=== PATIENT | female | born 1965 | race Asian ===

== ENCOUNTER 2017-06-15 12:22 | Inpatient (IN) | payer OTHER ==
[~2017-06-15] VITALS: Ht 162.6 cm; Wt 69.2 kg
[~2017-06-15 12:22] MED LIST: DEPAKOTE; SEROQUEL
[2017-06-15] MEDS ORDERED: LORAZEPAM 2 MG INJ IV STA (12:24)
[2017-06-15 13:56] LABS: CALCIUM 9.7 mg/dl (8.4-10.2); CREATININE 0.79 mg/dl (0.44-1.00); POTASSIUM 4.5 mmol/L (3.5-5.1)
--- NOTE | 2017-06-15 14:32 | ERD ---
ER Documentation Chief Complaint Date/Time DATE: 06/15/17 TIME: 14:27 Chief Complaint BIB RA FOR EVAL OF SEIZURE AT [facility]. HX OF SZ. NO INJURIES HPI This is a 51-year-old female with a known seizure disorder on multiple medications including Keppra, valproic acid and Tegretol with an additional history of developmental delay who presents for possible multiple seizures. The patient's report is mostly provided by EMS. It appears the patient may have had up to 4 seizures while at the adult daycare center returning to baseline he is time. The patient does have regular breakthrough seizures. The patient has had a chcf it is unclear if she gives herself the medications. The patient is able to state that she has no pain but has limited other verbal and interactive capability. Therefore, remainder of HPI is very limited. No report of trauma. ROS All systems reviewed and are negative except as per history of present illness. Medications Home Meds Reported Medications [Seroquel] No Conflict Check 06/14/10 [Depakote] No Conflict Check 06/14/10 Allergies Allergies: Coded Allergies: No Known Allergies (Verified Allergy, Mild, 06/15/17) PMhx/Soc Hx Neurological Disorder: Yes (SEIZURES, MENTAL RETARDATION) Hx Alcohol Use: No Hx Substance Use: No Hx Tobacco Use: No Smoking Status: Never smoker Physical Exam Vitals Vital Signs Date Time Temp Pulse Resp B/P Pulse Ox O2 Delivery O2 Flow Rate FiO2 06/15/17 13:39 79 17 115/72 100 Room Air 06/15/17 12:26 98.2 82 16 120/82 99 Physical Exam General: Well developed, well nourished, no acute distress Head: Normocephalic, atraumatic. Eyes: Pupils equally reactive, EOM intact ENT: Moist mucous membranes Neck: Supple, no lymphadenopathy Respiratory: Lungs clear bilaterally, no distress Cardiovascular: RRR, no murmurs, rubs, or gallops Abdominal: Soft, non-tender, non-distended, no peritoneal signs : Deferred MSK: No edema, no unilateral swelling, 5/5 strength Neurologic: Alert and oriented, moving all extremities, normal speech, no focal weakness, no cerebellar signs Skin: No rash Psych: Normal mood Result Diagram: 06/15/17 1255 Results 24 hrs Laboratory Tests Test 06/15/17 12:55 06/15/17 13:11 06/15/17 13:53 Sodium Level 144mmol/L Potassium Level 4.5mmol/L Chloride Level 105mmol/L Carbon Dioxide Level 22mmol/L Anion Gap 22 Blood Urea Nitrogen 16mg/dl Creatinine 0.79mg/dl Glucose Level 82mg/dl Calcium Level 9.7mg/dl Valproic Acid (Depakene) Level 81ug/ml Bedside Glucose 79mg/dL 100mg/dL Current Medications Medications (Trade) Dose Ordered Sig/Avani Route PRN Reason Start Time Stop Time Status Last Admin Dose Admin Lorazepam (Ativan) 0.5 mg ONCE STAT IV 06/15/17 12:24 06/15/17 12:25 DC 06/15/17 13:33 Procedures/MDM LAB INTERPRETATION: No hypoglycemia, no electrolyte abnormality, therapeutic valproic acid MEDICAL DECISION MAKING: The patient has likely breakthrough seizures. She has returned to her baseline and has no symptoms or diagnostic criteria for status epilepticus. The patient has no signs or symptoms concerning for increased intracranial pressure. She has no evidence of infectious process such as meningitis. I believe that since the patient has had 4 seizures electrolyte testing and valproic value would be appropriate. The patient will also be given Ativan for seizure prophylaxis. ER COURSE: The patient does not require CT imaging, she has returned to her baseline and were maintained her baseline during multiple hours of observation in the emergency room. At this time I do not believe the patient requires hospitalization, this is likely secondary to breakthrough seizures. The patient can be discharged back to her assisted living facility with outpatient neurology follow-up as appropriate. I kept the patient and/or family informed of laboratory and diagnostic imaging results throughout the emergency room course. DISPOSITION PLAN: We discussed follow up with the patient's primary care doctor within 24 to 48 hours as needed. We also discussed return to the emergency room for worsening symptoms or worsening condition. Outpatient referral: Primary care and primary neurology Departure Diagnosis: Primary Impression: Seizure disorder Condition: Stable Patient Instructions: Seizure, Recurrent [Adult] Referrals: COMMUNITY CLINICS YOU HAVE RECEIVED A MEDICAL SCREENING EXAM AND THE RESULTS INDICATE THAT YOU DO NOT HAVE A CONDITION THAT REQUIRES URGENT TREATMENT IN THE EMERGENCY DEPARTMENT. FURTHER EVALUATION AND TREATMENT OF YOUR CONDITION CAN WAIT UNTIL YOU ARE SEEN IN YOUR DOCTORS OFFICE WITHIN THE NEXT 1-2 DAYS. IT IS YOUR RESPONSIBILITY TO MAKE AN APPOINTMENT FOR FOLOW-UP CARE. IF YOU HAVE A PRIMARY DOCTOR --you should call your primary doctor and schedule an appointment IF YOU DO NOT HAVE A PRIMARY DOCTOR YOU CAN CALL OUR PHYSICIAN REFERRAL HOTLINE AT IF YOU CAN NOT AFFORD TO SEE A PHYSICIAN YOU CAN CHOSE FROM THE FOLLOWING [facility] [address] [facility] [address] [facility] [address] [facility] [address] [facility] [address] [facility] [facility] [address] [facility]. [facility] YOU HAVE RECEIVED A MEDICAL SCREENING EXAM AND THE RESULTS INDICATE THAT YOU DO NOT HAVE A CONDITION THAT REQUIRES URGENT TREATMENT IN THE EMERGENCY DEPARTMENT. FURTHER EVALUATION AND TREATMENT OF YOUR CONDITION CAN WAIT UNTIL YOU ARE SEEN IN YOUR DOCTORS OFFICE WITHIN THE NEXT 1-2 DAYS. IT IS YOUR RESPONSIBILITY TO MAKE AN APPOINTMENT FOR FOLOW-UP CARE. IF YOU HAVE A PRIMARY DOCTOR --you should call your primary doctor and schedule and appointment IF YOU DO NOT HAVE A PRIMARY DOCTOR YOU CAN CALL OUR PHYSICIAN REFERRAL HOTLINE AT . IF YOU CAN NOT AFFORD TO SEE A PHYSICIAN YOU CAN CHOSE FROM THE FOLLOWING [facility] INSTITUTIONS: [facility] [address] [place] [address] [facility] [address] [place] [address] [facility] + [facility] [address] [place] [address] Additional Instructions: Call your primary care doctor TOMORROW for an appointment during the next 1 WEEK.Tell the law secretary that you were referred from this facility.See the doctor sooner or return here if your condition worsens before your appointment time. MOMO MCGINNIS MD Jun 15, 2017 14:32
[2017-06-15] MEDS ORDERED: ARIP10TA13 PO (14:42)
[2017-06-15] MEDS ORDERED: TOPI25CA2 PO (14:42)
[2017-06-15] MEDS ORDERED: DIVA500T7 PO (14:42)
[2017-06-15] MEDS ORDERED: TOPI-25 PO (14:43)
[2017-06-15] MEDS ORDERED: METO5TAB58 PO (14:44)
[2017-06-15] MEDS ORDERED: LEVE100018 PO (14:44)
[2017-06-15] MEDS ORDERED: PANT40TA4 PO (14:45)
[2017-06-15] MEDS ORDERED: LACT20SO2 PO (14:45)
[2017-06-15] MEDS ORDERED: LORA1TAB PO (14:45)
[2017-06-15] MEDS ORDERED: LOPE2CAP PO (14:47)
[2017-06-15] MEDS ORDERED: DOCU-144 PO (14:47)
[2017-06-15] MEDS ORDERED: CHOL100062 PO (14:49)
[2017-06-15] MEDS ORDERED: LEVETIRACETAM 1000 MG (PMX) 100 ML IVPB STA (15:51)
[2017-06-15] MEDS ORDERED: LORAZEPAM 2 MG INJ IV ONE (16:00)
--- NOTE | 2017-06-15 16:15 | RADRPT ---
PROCEDURE: CT Cervical Spine without contrast. CLINICAL INDICATION: Trauma with neck pain TECHNIQUE: Using a GE [id number] slice CT scanner, multiple axial images through the cervical sp ine with coronal and sagittal reformats were obtained without contrast. The images were reviewed on a high-resolution PACS workstation. The CTDI vol is 22.15 mGy and the DLP is 451.13 mGy-cm. COMPARISON: No prior studies are available for comparison. FINDINGS: Trace retrolisthesis at C3-4 is seen. The remainder of the cervical lordosis is straightened. There is normal height of the vertebral bodies. Multilevel endplate and uncovertebral osteophytosis is se en. There is no bone destruction or sclerosis. The atlantoaxial joint demonstrates degenerative de león ges. There is no acute fracture or subluxation. No prevertebral or paravertebral soft tissue abnorm ality is seen. Degenerative changes between the right occipital condyle and right lateral mass of C1 is seen. C2-3: A mild posterior disk bulge is seen. There is no neuroforaminal narrowing. There is no central canal stenosis. C3-4: Mild disk height loss is seen with a posterior disk bulges. A superimposed 3 mm focal central disk protrusion is seen which indents the ventral thecal sac. Mild to moderate central canal steno sis is seen. Moderate left foraminal stenosis and mild right foraminal stenosis is seen secondary t o facet arthropathy and uncovertebral osteophytosis. C4-5: Mild disk height loss is seen. A posterior disk osteophyte complex is seen. Mild central can al stenosis is seen. Moderate left foraminal stenosis and mild right foraminal stenosis is seen sec ondary to uncovertebral osteophytosis and facet arthropathy. C5-6: Mild to moderate disk height loss is seen with a posterior disk osteophyte complex noted. Sev ere left foraminal stenosis is seen with mild right foraminal stenosis secondary to uncovertebral os teophytosis. Mild central canal stenosis is seen. C6-7: Moderate to severe disk height loss is seen with a post a disk osteophyte complex noted. Mode rate left foraminal stenosis is seen with minimal right foraminal stenosis secondary to uncovertebra l osteophytosis. Borderline narrowing of the central canal is seen. C7-T1: Mild to moderate disk height loss is seen. There is no neuroforaminal narrowing. There is no central canal stenosis. IMPRESSION: 1. No CT evidence of an acute fracture or subluxation. 2. Multilevel degenerative spondylosis of the cervical spine as detailed above. 3. Straightening of the cervical lordosis. 4. Multilevel foraminal stenosis which is most prominent on the left side is C5-6 with severe narro wing. RPTAT: HPNM Physician Kemar Date Time Electronically viewed and signed by Brodie Rivas Physician on 06/15/2017 16:14 /
--- NOTE | 2017-06-15 16:31 | RADRPT ---
PROCEDURE: CT Head without intravenous contrast CLINICAL INDICATION: Fall in the emergency department. COMPARISON: CT from 11/13/2008. TECHNIQUE: Axial CT images from skull base to vertex with coronal and sagittal reformats. DOSE: The estimated administered radiation dose was CTDI vol = 42 mGy; DLP = 720 mGy-cm. One or mor e of the following dose reduction techniques were used: automated exposure control, adjustment of th e mA and/or kV according to patient size, or use of iterative reconstruction. FINDINGS: Parenchyma: Encephalomalacia and gliosis in the right anterior inferior frontal lobe related to bryson te injury. The basal ganglia are mineralized. Mild diffuse cerebral atrophy and moderate diffuse c erebellar atrophy. Ventricles: No ventriculomegaly or ventricular effacement. Extra-axial spaces: Acute subdural hemorrhage overlying the right frontal lobe measures 210 mm thick . Acute subdural hemorrhage overlying the high left parietal lobe measures to 5 mm thick. Acute bryant bdural hemorrhage overlying the tentorium measures up to 4 mm thick, left more than right. Acute bryant bdural hemorrhage overlying the posterior margin of the clivus measures up to 5 mm thickened extends inferiorly to the cervical spine out of the field of view. Paranasal sinuses: Clear. Mastoids and middle ears: Clear. Visualized orbits: Normal. Vessels: No calcified atherosclerotic arterial plaque identified. Bones: Old right frontal temporal craniotomy with metallic surgical material underlying the operativ e bed. No acute fracture within the limitations of 5 mm axial images Extracranial soft tissues: Small parietal scalp hematoma measuring up to 4 mm thick. Additional comment: None. IMPRESSION: 1. Acute subdural hemorrhages overlying the right frontal lobe, left parietal lobe, tentorium, and d ura overlying the clivus. The clival subdural hemorrhage extends to the anterior cervical spinal can al. 2. Moderate cerebellar atrophy, a finding with a broad differential diagnosis. In this case, the ca use may be related to the patient's chronic valproate use for known underlying seizure disorder. 3. Old injury in the right frontal lobe in a pattern often associated with trauma. Dr. Marley discussed findings with MARIELA CRUZ , the clinician responsible for this patient, vi a telephone at 06/15/2017 4:19:17 PM with read back confirmation. RPTAT: PP Maricruz Marley, Physician Date Time Electronically viewed and signed by Maricruz Marley Physician on 06/15/2017 16:31 /
[2017-06-15] MEDS ORDERED: LIDOCAINE 1% (MPF) 5 ML VIAL SC ONE (17:00)
[2017-06-15 17:09] LABS: BASOPHIL # 0.1 10^3/ul (0.0-0.1); BASOPHILS % 0.5 % (0.0-2.0); EOSINOPHILS # 0.2 10^3/ul (0.0-0.5); EOSINOPHILS % 1.2 % (0.0-7.0); HEMATOCRIT 41.2 % (37.0-47.0); HEMOGLOBIN 14.1 g/dl (12.0-16.0); LYMPHOCYTES # 4.8 10^3/ul (0.8-2.9); LYMPHOCYTES % 39.8 % (15.0-51.0); MEAN CORPUSCULAR HEMOGLOBIN 31.5 pg (29.0-33.0); MEAN CORPUSCULAR HGB CONC 34.2 g/dl (32.0-37.0); MEAN CORPUSCULAR VOLUME 92.2 fl (82.0-101.0); MEAN PLATELET VOLUME 10.9 fl (7.4-10.4); MONOCYTE # 1.3 10^3/ul (0.3-0.9); MONOCYTES % 10.5 % (0.0-11.0); NEUTROPHIL # 5.7 10^3/ul (1.6-7.5); NEUTROPHILS % 47.6 % (39.0-77.0); PLATELET COUNT 194 10^3/UL (140-415); RED BLOOD COUNT 4.47 10^6/ul (4.20-5.40); RED CELL DISTRIBUTION WIDTH 12.2 % (11.5-14.5)
[2017-06-15 17:25] LABS: INR 0.99; PROTIME 13.1 Sec (12.2-14.2)
[2017-06-15 17:26] LABS: PARTIAL THROMBOPLASTIN TIME 24.1 Sec (25.0-35.0)
--- NOTE | 2017-06-15 17:51 | EN ---
Date/Time of Note Date/Time of Note DATE: 06/15/17 TIME: 17:45 ER Progress Note This is a 51-year-old female with a known history of developmental delay and seizure disorder. The patient had been seen and evaluated in the emergency department by the previous ER physician and was appropriately being discharged after evaluation for recurrent seizures. The patient had been awaiting transfer and still remained in seizure precautions. The patient at 1544 was found lying on the floor adjacent to her hospital bed experiencing a witnessed tonic-clonic seizure. I went to the bedside and saw the patient actively seizing on the floor and therefore administered 2 mg of Ativan intravenously with resolution of the seizure. The patient had no scalp hematoma and appeared to be in a post ictal state. Given the blunt head trauma the patient was immediately placed in cervical spine immobilization. CT scan of the patient's head and neck was ordered at 1546 and reviewed by myself emergently and I spoke with the radiologist who indicated that the patient had an acute subdural hemorrhage overlying the left parietal lobe measuring 5 mm as well as 4 mm overlying the tentorium on the left more than the right. The patient remained in cervical spine immobilization and a immediately placed a consult to the on- call neurosurgeon Dr. Villavicencio who kindly stated he will be consulted on the case. 2 large bore IV catheters were placed. The patient remained on a court monitor and continuous pulse oximetry. Her airway remained intact. She still remained postictal and therefore was unable to observe the gait. Repeat examination performed by myself showed that the patient had normal breath sounds bilaterally with no reproducible crepitus ecchymosis or flail chest and there is no signs of blunt or penetrating chest or abdominal trauma. Againg gait was not observed as the patient was postictal and was not following verbal command. Pupils were 3mm equal reactive to light bilaterally. I ordered a CBC, coagulation panel and gave the patient on IV Keppra for seizure prophylaxis. She remained in seizure precautions. She will be admitted to the intensive care unit under the care of the [facility] physician Dr. Maravilla. I placed an emergent social work consult to determine who consents for the patient. MARIELA CRUZ Jun 15, 2017 17:51
[2017-06-15] MEDS ORDERED: ONDANSETRON 4 MG INJ IV PRN (20:30)
[2017-06-15] MEDS ORDERED: D5-NS + KCL 40 MEQ 1,000 ML IV SCH (20:30)
[2017-06-15] MEDS ORDERED: DIVALPROEX (EC) 500 MG TAB PO SCH (21:00)
[2017-06-15] MEDS ORDERED: LEVETIRACETAM 500 MG TAB PO SCH (21:00)
[2017-06-16] VITALS (31 sets, daily range): BP systolic 112–161; BP diastolic 49–108; PULSE 79–110; RESP 15–22; TEMP 99.3; Ht 162.6 cm; Wt 69.2 kg
--- NOTE | 2017-06-16 00:52 | QN ---
Documentation Comment H&P dict a/p 1. neuro: extensive dubdural, appreciate neurosurg (dinorah) input, cont to monitor neuro status repeat ct in am (b) vagal nerve stimulator (not pacer per mother) implanted recently (c) refractory seizures, cont keppra, ativan prn (d) developmental delay CINDY FLORES MD Jun 16, 2017 00:52
[2017-06-16] MEDS: D5-NS + KCL 40 MEQ 1,000 ML IV SCH ×2 (04:26→22:34)
[2017-06-16] MEDS: METOCLOPRAMIDE 5 MG TAB PO SCH ×2 (07:00→11:00)
[2017-06-16] MEDS: PANTOPRAZOLE (EC) 40 MG TAB PO SCH (07:00)
--- NOTE | 2017-06-16 07:49 | RADRPT ---
PROCEDURE: CT Brain without contrast. CLINICAL INDICATION: Subdural hemorrhages TECHNIQUE: Axial images from the skull base through the vertex without IV contrast. Multiplanar r eformatted images were made. Images were reviewed on a PACS workstation. The CTDIvol is 45.01 mGy and the DLP is 720.23 mGycm. One or more of the following dose reduction techniques were used: auto mated exposure control, adjustment of the mA and/or kV according to patient size, or use of iterativ e reconstruction technique. COMPARISON: 06/15/2017 FINDINGS: There has been significant interval increase of the right subdural hemorrhage. This previously niru ured 12 mm adjacent to the anterior right frontal lobe now measures 19 mm. Right subdural blood in the posterior high right frontoparietal region now measures 5-6 mm in greatest diameter and previous ly measured 1-2 mm in greatest diameter. Extra-axial blood along the falx and cerebellar tentorium is also increased, measuring 6 mm along the falx and 6 mm on the right cerebellar tentorium. There is now 3 mm of naxqw-gd-ltam midline shift. Posterior left frontal parietal subdural hematoma is st able or slightly decreased, measuring 8 mm in diameter and previously measuring 9 mm in diameter. V entricular size is unchanged. Cerebellar atrophy is again seen. Right post craniotomy changes are again seen. Underlying atrophy and chronic microvascular ischemic changes are again seen. Old righ t inferior frontal lobe encephalomalacia. The visualized paranasal sinuses and mastoids are clear. IMPRESSION: Increase in right subdural hematoma and blood along the falx and cerebellar tentorium. Xgjky-ac-yep t midline shift. Results were called to Dr Thakkar at 06/16/2017 7:28:58 AM Critical results: Intracranial hemorrhage RPTAT: HLBE Physician Edwin Date Time Electronically viewed and signed by Estela Huntley Physician on 06/16/2017 07:49 LE/
--- NOTE | 2017-06-16 08:05 | HP ---
DATE OF ADMISSION: 06/15/2017 CHIEF COMPLAINT: Seizure. HISTORY OF PRESENT ILLNESS: The patient presented to the Emergency Room of [facility] after experiencing a seizure, . She has prior history seizures; however, while she was receiving her treatment here in the hospital, she was found on the floor and at that time somewhat altered and there is concern for injury. She was sent for a CT scan of the brain and it revealed subdural hematoma. PAST MEDICAL HISTORY: Significant for developmental delay and refractory seizures. MEDICATIONS: Outpatient include: 1. Abilify 10 mg daily. 2. Depakote 500 mg t.i.d. 3. Keppra 1000 mg b.i.d. 4. Ativan 1 mg every 4 hours as needed. 5. Topamax 50 mg b.i.d., given with 100 mg b.i.d. for a total dose of 150 mg b.i.d. 6. Lactulose p.r.n. 7. Colace and p.r.n. 8. Imodium p.r.n. 9. Protonix 40 mg daily. ALLERGIES: NO KNOWN DRUG ALLERGIES. 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 In the fsfhi-hxd-npzy, according to her mother, she is usually able to bathe and dress herself. She does have some gait disturbance, but is able to walk. Denies tobacco, alcohol, or illicit drug use. FAMILY HISTORY: Noncontributory. REVIEW OF SYSTEMS: Five systems were reviewed and found to be notable for A deep vagal stimulator placed in the left upper chest wall approximately 3 months ago at [facility]. PHYSICAL EXAMINATION: VITAL SIGNS: Blood pressure is 143/87, pulse rate 115, respirations 23, temperature is 98.6. GENERAL: Pleasant, somnolent woman in no acute distress. Arousable, but does not answer questions or follow commands. HEENT: Normocephalic, atraumatic. Without any scleral icterus or cyanosis. Mucous membranes moist. NECK: Soft, supple, without mass. No evidence of jugular venous distention. No carotid bruits. CHEST: Clear to auscultation and percussion bilaterally. HEART: Regular rate and rhythm. S1 and S2. No added sounds. ABDOMEN: Soft, nontender, and nondistended, without palpable hepatosplenomegaly. EXTREMITIES: Without clubbing, cyanosis or edema. SKIN: Without rashes. NEUROLOGIC: The patient is not cooperative with exam; however, pupils are equal and round, reactive to light. Moving all 4 limbs spontaneously. LABORATORY STUDIES: Reveal a hemoglobin of 14.1 g/dL, white count of 12,000, and platelets of 194,000. INR is 1.0. Sodium 144, potassium 4.5, chloride 105, bicarb 22, BUN 16, creatinine 0.8, glucose 82. CT scan of brain reveals a subdural hematoma over right frontoparietal region and tentorium, worse on the left. CT scan of cervical spine does not reveal any fractures or dislocations. ASSESSMENT AND PLAN: 1. compatible MRI. from [facility]. 2. . 3. Prophylaxis with TEDs, SCDs and Protonix. Dictated By: Obinna Kidd MD /bailey/eddie /Document#: [id number]
[2017-06-16] MEDS: ARIPIPRAZOLE 10 MG TAB PO SCH (09:00)
[2017-06-16] MEDS: TOPIRAMATE SPRINKLE 25 MG CAP PO SCH ×2 (09:00→21:00)
[2017-06-16] MEDS: TOPIRAMATE 100 MG TAB PO SCH ×2 (09:00→21:00)
[2017-06-16] MEDS: CHOLECALCIFEROL 1,000 UNIT TAB PO SCH (09:00)
--- NOTE | 2017-06-16 09:42 | PN ---
Date/Time of Note Date/Time of Note DATE: 06/16/17 TIME: 09:42 Assessment/Plan VTE Prophylaxis VTE Prophylaxis Intervention: SCD's Lines/Catheters Urinary Cath still in place: Yes Reason Cath still needed: other (indicate) (Close neurological monitoring and strict bed rest. ) Assessment/Plan Assessment/Plan 51-year-old female with: 1. Right subdural hematoma, increased per repeat CT this morning with now a 3 mm of [id number] midline shift. Patient lethargic on my exam this morning, A.m. labs pending this morning, neurosurgical evaluation pending, ABG pending Close neurological monitoring in ICU Continue antiseizure medications, follow-up neurosurgical recommendations today 2. Seizure disorder, refractory to medications apparently: Continue current medications and also status post vagal nerve stimulator. Neurology will be consulted also. 3. Developmental delay: Close neurological monitoring given acute traumatic head injury with right subdural hematoma. Continue outpatient medications as long as patient able to take p.o. safely 4. GERD: Continue Protonix 5. Chronic constipation: Continue outpatient regimen as well as patient able to take p.o. Prophylaxis: Protonix for GI prophylaxis, SCDs to lower extremity for DVT prophylaxis Disposition: Close neurological monitoring, neurosurgical evaluation, neurology consult, follow-up labs this morning including ABG, seizure precautions. Subjective 24 Hr Interval Summary Free Text/Dictation Patient currently lethargic, answering simple questions but slow to react. Unclear baseline she does have a history of developmental delay. Will need outpatient records when it comes to vagal nerve stimulator placement in the past few years, possibly a craniotomy on a previous hospitalization at another hospital. She is currently in ICU for close neurological observation knowing her seizure history and currently unfortunately with a subdural hematoma Exam/Review of Systems Vital Signs Vitals Vital Signs Date Time Temp Pulse Resp B/P Pulse Ox O2 Delivery O2 Flow Rate FiO2 06/16/17 08:26 103 18 142/74 96 Nasal Cannula 2.0 06/16/17 06:43 99.3 Exam Constitutional: frail, other (Lethargic) Respiratory: clear to auscultation, respirations (Slightly shallow) Cardiovascular: nl pulses, regular rate and rhythm Gastrointestinal: non-tender, soft Musculoskeletal: nl extremities to inspection Extremities: normal pulses, other (No edema, clubbing or cyanosis) Neurological: TABULATING MACHINE MECHANIC II-XII intact, lethargic, other (Slow to respond) Results Result Diagram: 06/15/17 1700 06/15/17 1255 Results 24 hrs Laboratory Tests Test 06/15/17 12:55 06/15/17 13:11 06/15/17 13:53 06/15/17 14:58 Sodium Level 144 Potassium Level 4.5 Chloride Level 105 Carbon Dioxide Level 22 Anion Gap 22 H Blood Urea Nitrogen 16 Creatinine 0.79 Glucose Level 82 Calcium Level 9.7 Valproic Acid (Depakene) Level 81 Bedside Glucose 79 100 121 Test 06/15/17 17:00 White Blood Count 12.0 H Red Blood Count 4.47 Hemoglobin 14.1 Hematocrit 41.2 Mean Corpuscular Volume 92.2 Mean Corpuscular Hemoglobin 31.5 Mean Corpuscular Hemoglobin Concent 34.2 Red Cell Distribution Width 12.2 Platelet Count 194 Mean Platelet Volume 10.9 H Neutrophils % 47.6 Lymphocytes % 39.8 Monocytes % 10.5 Eosinophils % 1.2 Basophils % 0.5 Nucleated Red Blood Cells % 0.0 Neutrophils # 5.7 Lymphocytes # 4.8 H Monocytes # 1.3 H Eosinophils # 0.2 Basophils # 0.1 Nucleated Red Blood Cells # 0.0 Prothrombin Time 13.1 Prothrombin Time Ratio 1.0 INR International Normalized Ratio 0.99 Activated Partial Thromboplast Time 24.1 L Medications Medications Current Medications Aripiprazole (Abilify) 10 mg DAILY PO ; Start 06/16/17 at 09:00 Cholecalciferol (Vitamin D) 1,000 unit DAILY PO ; Start 06/16/17 at 09:00 Divalproex Sodium (Depakote) 500 mg TID PO ; Start 06/15/17 at 21:00 Levetiracetam (Keppra) 1,000 mg BID PO ; Start 06/15/17 at 21:00 Topiramate (Topamax Sprinkle) 50 mg BID PO ; Start 06/15/17 at 21:00 Topiramate (Topamax) 100 mg BID PO ; Start 06/15/17 at 21:00 Lorazepam (Ativan) 2 mg Q1H PRN IV seizure; Start 06/15/17 at 20:30 Acetaminophen (Tylenol Tab) 650 mg Q4H PRN PO pain/fever; Start 06/15/17 at 20: 30 Morphine Sulfate (morphine) 2 mg Q2H PRN IV pain; Start 06/15/17 at 20:30 Ondansetron HCl 4 mg 4 mg Q4H PRN IV nausea; Start 06/15/17 at 20:30 Potassium Chloride/Dextrose/ Sod Cl (D5-NS + KCl 40 Meq) 1,000 ml @ 100 mls/hr Q10H IV Last administered on 06/16/17t 04:26; Admin Dose 100 MLS/HR; Start at 04:12 Procedures Procedures PROCEDURE: CT Brain without contrast. CLINICAL INDICATION: Subdural hemorrhages TECHNIQUE: Axial images from the skull base through the vertex without IV contrast. Multiplanar reformatted images were made. Images were reviewed on a PACS workstation. The CTDIvol is 45.01 mGy and the DLP is 720.23 mGycm. One or more of the following dose reduction techniques were used: automated exposure control, adjustment of the mA and/or kV according to patient size, or use of iterative reconstruction technique. COMPARISON: 06/15/2017 FINDINGS: There has been significant interval increase of the right subdural hemorrhage. This previously measured 12 mm adjacent to the anterior right frontal lobe now measures 19 mm. Right subdural blood in the posterior high right frontoparietal region now measures 5-6 mm in greatest diameter and previously measured 1-2 mm in greatest diameter. Extra-axial blood along the falx and cerebellar tentorium is also increased, measuring 6 mm along the falx and 6 mm on the right cerebellar tentorium. There is now 3 mm of [id number] midline shift. Posterior left frontal parietal subdural hematoma is stable or slightly decreased, measuring 8 mm in diameter and previously measuring 9 mm in diameter. Ventricular size is unchanged. Cerebellar atrophy is again seen. Right post craniotomy changes are again seen. Underlying atrophy and chronic microvascular ischemic changes are again seen. Old right inferior frontal lobe encephalomalacia. The visualized paranasal sinuses and mastoids are clear. IMPRESSION: Increase in right subdural hematoma and blood along the falx and cerebellar tentorium. [id number] midline shift. Results were called to Dr Thakkar at 06/16/2017 7:28:58 AM Critical results: Intracranial hemorrhage RPTAT: HLBE Estela Huntley, Physician Date Time Electronically viewed and signed by Estela Huntley, Physician on 06/16/2017 07 :49 ALEXANDER DARBY Jun 16, 2017 09:42
[2017-06-16 10:13] LABS: AADO2 Arterial 34.9 mmHg (7.0-24.0); Allen Test ACCEPTAB; Arterial Base Excess -1.9 mmol/L (-3.0-3); Arterial COHb 1.1 % (0.0-3.0); Arterial Fraction of Oxyhgb 96.2 % (93.0-99.0); Arterial HCO3 23.7 mmol/L (22.0-26.0); Arterial MetHb 0.3 % (0.0-1.5); Arterial Total Hemglobin 13.4 g/dl (12.0-18.0); MODE NASAL CANNULA
[2017-06-16 10:20] LABS: ABNORMAL IP MESSAGE 1; BASOPHILS % 0.1 % (0.0-2.0); HEMATOCRIT 37.8 % (37.0-47.0); HEMOGLOBIN 12.6 g/dl (12.0-16.0); LYMPHOCYTES # 2.2 10^3/ul (0.8-2.9); LYMPHOCYTES % 16.2 % (15.0-51.0); MEAN CORPUSCULAR HEMOGLOBIN 30.8 pg (29.0-33.0); MEAN CORPUSCULAR HGB CONC 33.3 g/dl (32.0-37.0); MEAN CORPUSCULAR VOLUME 92.4 fl (82.0-101.0); MEAN PLATELET VOLUME 10.6 fl (7.4-10.4); MONOCYTE # 1.6 10^3/ul (0.3-0.9); MONOCYTES % 12.1 % (0.0-11.0); NEUTROPHIL # 9.5 10^3/ul (1.6-7.5); NEUTROPHILS % 71.2 % (39.0-77.0); PLATELET COUNT 224 10^3/UL (140-415); RED BLOOD COUNT 4.09 10^6/ul (4.20-5.40); RED CELL DISTRIBUTION WIDTH 12.5 % (11.5-14.5); WHITE BLOOD COUNT 13.4 10^3/ul (4.8-10.8)
[2017-06-16] MEDS ORDERED: LACTULOSE 30ML CUP PO PRN (10:30)
[2017-06-16 10:57] LABS: MAGNESIUM 1.8 mg/dl (1.7-2.5); PHOSPHORUS 3.2 mg/dl (2.5-4.9)
[2017-06-16 10:59] LABS: ALBUMIN 3.9 g/dl (3.3-4.9); ALBUMIN/GLOBULIN RATIO 1.02; BILIRUBIN,INDIRECT 0.2 mg/dl (0-1.1); BILIRUBIN,TOTAL 0.2 mg/dl (0.2-1.3); CALCIUM 8.9 mg/dl (8.4-10.2); CREATININE 0.58 mg/dl (0.44-1.00); POTASSIUM 4.1 mmol/L (3.5-5.1); TOTAL PROTEIN 7.7 g/dl (6.1-8.1)
[2017-06-16] MEDS ORDERED: LIDOCAINE 1% (MPF) 5 ML VIAL SC ONE (11:00)
[2017-06-16] MEDS: LEVETIRACETAM 1000 MG (PMX) 100 ML IVPB SCH ×2 (11:23→21:48)
[2017-06-16] MEDS: VALPROATE INJ 500 MG in SOD CHLORIDE 0.9% 50 ML IVPB SCH ×3 (12:07→21:48)
--- NOTE | 2017-06-16 15:35 | CONS ---
Date/Time of Note Date/Time of Note DATE: 06/16/17 TIME: 15:19 Assessment/Plan Assessment/Plan Problems: (1) Subdural bleeding Status: Acute Additional Assessment/Plan 51 year old female with right frontal SDH, enlarged on follow up exam. The patient will likely benefit from right sided craniotomy for evacuation of hematoma, given its size (~2cm) and symptoms (lethargy, ? pronator drift), and 3mm midline shift. The patient is however tolerating the hematoma better than might be expected, and this may relate to evidence of prior underlying right encephalomalacia. I have recommended a repeat CT of the brain now to rule out further progression of the hematoma. If the hemorrhage is continuing to enlarge , I recommend urgent surgery (this pm). If stable, surgery might be able to be deferred, depending on wishes of patient and family. I discussed this with her mother (ANNIE) and she expressed her understanding and agreement with the plan as outlined above. Consultation Date/Type/Reason Admit Date/Time Jun 15, 2017 at 20:20 Date of Consultation: Jun 16, 2017 Type of Consultation: neurological surgery Reason for Consultation right frontal extra-axial hemorrhage Hx of Present Illness 51 y/o female with hx of sz d/o p/w seizure -> GLF -> R F SDH. Repeat CT shows increase in size of extra-axial hematoma. CT c/w prior right frontal encephalomalacia & prior craniotomy. No further evidence of seizure activity. Social History Smoking Status: Never smoker Exam/Review of Systems Vital Signs Vitals Vital Signs Date Time Temp Pulse Resp B/P Pulse Ox O2 Delivery O2 Flow Rate FiO2 06/16/17 14:30 94 16 141/82 100 06/16/17 14:00 Nasal Cannula 2.0 06/16/17 12:00 98.2 Exam Sleepy but easily arousable, follows commands (shows two fingers) bilaterally. ? pronator drift on left? Pupils =, face = hat model 5/5 bilaterally. Moves all extremities spontaneously. Results Result Diagram: 06/16/17 1009 06/16/17 1009 Results 24 hrs Laboratory Tests Test 06/15/17 17:00 06/16/17 09:35 06/16/17 10:09 White Blood Count 12.0 H 13.4 H Red Blood Count 4.47 4.09 L Hemoglobin 14.1 12.6 Hematocrit 41.2 37.8 Mean Corpuscular Volume 92.2 92.4 Mean Corpuscular Hemoglobin 31.5 30.8 Mean Corpuscular Hemoglobin Concent 34.2 33.3 Red Cell Distribution Width 12.2 12.5 Platelet Count 194 224 Mean Platelet Volume 10.9 H 10.6 H Neutrophils % 47.6 71.2 Lymphocytes % 39.8 16.2 Monocytes % 10.5 12.1 H Eosinophils % 1.2 0.0 Basophils % 0.5 0.1 Nucleated Red Blood Cells % 0.0 0.0 Neutrophils # 5.7 9.5 H Lymphocytes # 4.8 H 2.2 Monocytes # 1.3 H 1.6 H Eosinophils # 0.2 0.0 Basophils # 0.1 0.0 Nucleated Red Blood Cells # 0.0 0.0 Prothrombin Time 13.1 Prothrombin Time Ratio 1.0 INR International Normalized Ratio 0.99 Activated Partial Thromboplast Time 24.1 L Blood Gas Specimen Source Blood arterial Arterial Blood Date Drawn 06/16/2017 10:00:29 AM Arterial Blood pH (Temp corrected) 7.353 Arterial Blood pCO2 (Temp correct) 43.6 Arterial Blood pO2 (Temp corrected) 106.1 H Arterial Blood HCO3 23.7 Arterial Blood Base Excess -1.9 Arterial Blood Oxygen Saturation 97.6 Edwardo Test ACCEPTAB Arterial Blood Gas Puncture Site Right Radial Arterial Blood Carboxyhemoglobin 1.1 Arterial Blood Methemoglobin 0.3 Blood Gas A-a O2 Differential 34.9 H Oxyhemoglobin Percent 96.2 Total Hemoglobin 13.4 Blood Gas Temperature 37.0 Blood Gas Modality NASAL CANNULA FiO2 27.0 Blood Gas Notified Whom JLD Blood Gas Notified Time 06/16/2017 10:13:07 AM Sodium Level 141 Potassium Level 4.1 Chloride Level 103 Carbon Dioxide Level 24 Anion Gap 18 H Blood Urea Nitrogen 15 Creatinine 0.58 Glucose Level 139 # Calcium Level 8.9 Phosphorus Level 3.2 Magnesium Level 1.8 Total Bilirubin 0.2 Direct Bilirubin 0.00 Indirect Bilirubin 0.2 Aspartate Amino Transf (AST/SGOT) 33 Alanine Aminotransferase (ALT/SGPT) 25 Alkaline Phosphatase 50 Total Protein 7.7 Albumin 3.9 Globulin 3.80 H Albumin/Globulin Ratio 1.02 Medications Medications Current Medications Aripiprazole (Abilify) 10 mg DAILY PO ; Start 06/16/17 at 09:00 Cholecalciferol (Vitamin D) 1,000 unit DAILY PO ; Start 06/16/17 at 09:00 Topiramate (Topamax Sprinkle) 50 mg BID PO ; Start 06/15/17 at 21:00 Topiramate (Topamax) 100 mg BID PO ; Start 06/15/17 at 21:00 Lorazepam (Ativan) 2 mg Q1H PRN IV seizure; Start 06/15/17 at 20:30 Acetaminophen (Tylenol Tab) 650 mg Q4H PRN PO pain/fever; Start 06/15/17 at 20: 30 Morphine Sulfate (morphine) 2 mg Q2H PRN IV pain; Start 06/15/17 at 20:30 Ondansetron HCl 4 mg 4 mg Q4H PRN IV nausea; Start 06/15/17 at 20:30 Potassium Chloride/Dextrose/ Sod Cl 1,000 ml @ 100 mls/hr Q10H IV Last administered on 06/16/17 04:26; Admin Dose 100 MLS/HR; Start 06/16/17 at 04:12 Levetiracetam 100 ml @ 400 mls/hr Q12 IVPB Last administered on 06/16/17 11:23 ; Admin Dose 400 MLS/HR; Start 06/16/17 at 11:00 Valproate Sodium/ Sodium Chloride (Depacon/NS) 55 ml @ 55 mls/hr Q8 IVPB Last administered on 06/16/17 12:07; Admin Dose 55 MLS/HR; Start 06/16/17 at 11:00 Docusate Sodium (Colace) 100 mg DAILY PRN PO CONSTIPATION; Start 06/16/17 at 10: 30 Lactulose (Enulose) 20 gm BID PRN PO CONSTIPATION; Start 06/16/17 at 10:30 SIMRAN LARES MD Jun 16, 2017 15:32
--- NOTE | 2017-06-16 15:38 | RADRPT ---
PROCEDURE: XR Chest. CLINICAL INDICATION: Check Line Placement TECHNIQUE: Single frontal view of the chest was obtained COMPARISON: None FINDINGS: There is a vagal nerve stimulator projecting over the left lung base/cardiac apex with electrodes pr ojecting over the left lower neck. There is a right PICC line with tip projecting over the mid-right atrium. The cardiac silhouette is partially obscured, but mildly enlarged. No pneumothorax is identified. No significant pleural effusion seen. There is no evidence of pulmonary vascular congestion. There are mild degenerative changes of the visualized spine. IMPRESSION: 1. The right PICC line with tip projecting over the mid right atrium. 2. Left vagal nerve stimulator. 3. Mild cardiomegaly. RPTAT: EE Physician Bere Date Time Electronically viewed and signed by Physician Bere on 06/16/2017 15:37 /
[2017-06-16] MEDS ORDERED: SOD CHLORIDE 0.9% 100 ML ONE (15:47)
--- NOTE | 2017-06-16 16:08 | RADRPT ---
PROCEDURE: CT Brain without contrast. CLINICAL INDICATION: follow up ICH TECHNIQUE: CT scan of the brain was performed on a multidetector high-resolution CT scan. Axial im aging was obtained of the brain without contrast administration. Coronal and sagittal reformatted i mages were obtained from the axial source images. Standard CT scan of the head without contrast prot ocols were performed. The total exam CTDI equals 44.68 mGy and the total exam DLP equals 720.23 mGy-cm. One or more of the following dose reduction techniques were used: - Automated exposure control. - Adjustment of the mA and/or kV according to patient size. Use of iterative reconstruction technique. COMPARISON: CT scan of the head earlier same day FINDINGS: There is no significant interval change seen. Again noted is a right-sided acute subdural hematoma involving the right frontal parietal region with a maximal transverse diameter of 19 mm. No change in the parafalcine and tentorial subdural hematoma with maximal transverse diameters of approximatel y 6 mm. No change in the left parotid acute subdural hematoma measuring approximately 8 mm and maxi mal diameter. No new intracranial hemorrhages. Mild shift of the midline from right to left by daquan roximately 3.5 mm. Mild effacement of the right ventricle and right cerebrum. No evidence of intra cranial masses. Status post right craniotomy unchanged. These findings are superimposed and mild g eneralized cerebral volume loss and nonspecific chronic microischemic disease. again noted is a rig ht frontal encephalomalacia. The paranasal sinuses visualized are unremarkable. Mastoids are unrem arkable. IMPRESSION: 1. No significant change. 2. Again noted are right frontal parietal and left parietal subdural hematomas, parafalcine subdura l hematoma and tentorial subdural hematomas unchanged in size. No new intracranial hemorrhages. 3. Right frontal lobe encephalomalacia. 4. Mild generalized cerebral volume loss and nonspecific chronic microvascular ischemic disease. 5. No change right craniotomy. RPTAT:AAJJ Physician Latoya Date Time Electronically viewed and signed by Physician Latoya on 06/16/2017 16:08 BM/
--- NOTE | 2017-06-16 16:56 | RADRPT ---
PROCEDURE: Chest radiograph CLINICAL INDICATION: Check Line Placement. TECHNIQUE: Single portable frontal view. COMPARISON: Radiograph performed 20 minutes earlier. FINDINGS: The right PICC terminates in the right atrium. Device generator in the left chest with single lead extending to the left neck, suggesting a number of stimulator. The left diaphragm costophrenic sulcus is obscured which may be due to overlying soft tissue or smal l effusion. No suspicious bone lesion. IMPRESSION: The PICC line terminates within the right atrium, unchanged in last 20 minutes. RPTAT: PP Physician Sb Date Time Electronically viewed and signed by Physician Sb on 06/16/2017 16:56 LG/
[2017-06-16] MEDS ORDERED: hydrALAzine 20 MG INJ IV PRN (17:00)
[2017-06-16] MEDS ORDERED: LABETALOL HCL 20MG INJ IV PRN (17:00)
--- NOTE | 2017-06-16 17:22 | RADRPT ---
PROCEDURE: US guidance for PICC line CLINICAL INDICATION: PICC line placement TECHNIQUE: Multiple real-time images were acquired of the patient's arm utilizing a high resolutio n transducer. This was performed by the PICC line nurse for venous access. COMPARISON: None FINDINGS: Ultrasound guidance for PICC line placement. IMPRESSION: Ultrasound guidance for PICC line placement. RPTAT: AA .Pino Kirby MD, MD Date Time Electronically viewed and signed by .Pino Kirby MD, on 06/16/2017 17:22 .S/
[2017-06-16] MEDS: METOCLOPRAMIDE 10 MG INJ IV SCH (17:48)
[2017-06-17] VITALS (36 sets, daily range): BP systolic 95–152; BP diastolic 50–85; PULSE 65–101; RESP 12–22
[2017-06-17] MEDS: D5-NS + KCL 40 MEQ 1,000 ML IV SCH ×3 (00:12→20:12)
[2017-06-17 05:36] LABS: BASOPHILS % 0.3 % (0.0-2.0); HEMATOCRIT 35.6 % (37.0-47.0); LYMPHOCYTES # 2.7 10^3/ul (0.8-2.9); LYMPHOCYTES % 23.6 % (15.0-51.0); MEAN CORPUSCULAR HEMOGLOBIN 31.3 pg (29.0-33.0); MEAN CORPUSCULAR HGB CONC 33.7 g/dl (32.0-37.0); MEAN PLATELET VOLUME 10.9 fl (7.4-10.4); MONOCYTE # 1.1 10^3/ul (0.3-0.9); MONOCYTES % 9.8 % (0.0-11.0); NEUTROPHIL # 7.5 10^3/ul (1.6-7.5); NEUTROPHILS % 65.9 % (39.0-77.0); PLATELET COUNT 207 10^3/UL (140-415); RED BLOOD COUNT 3.83 10^6/ul (4.20-5.40); RED CELL DISTRIBUTION WIDTH 12.1 % (11.5-14.5); WHITE BLOOD COUNT 11.3 10^3/ul (4.8-10.8)
[2017-06-17 06:09] LABS: CREATININE 0.6 mg/dl (0.44-1.00)
[2017-06-17] MEDS: METOCLOPRAMIDE 10 MG INJ IV SCH ×3 (06:27→17:05)
[2017-06-17] MEDS: VALPROATE INJ 500 MG in SOD CHLORIDE 0.9% 50 ML IVPB SCH ×3 (06:27→23:12)
[2017-06-17] MEDS: PANTOPRAZOLE (EC) 40 MG TAB PO SCH (06:29)
[2017-06-17] MEDS ORDERED: CEFAZOLIN 1 GM INJ ONE (07:00)
[2017-06-17] MEDS: LEVETIRACETAM 1000 MG (PMX) 100 ML IVPB SCH ×2 (08:31→20:43)
[2017-06-17] MEDS: TOPIRAMATE SPRINKLE 25 MG CAP PO SCH ×2 (09:00→20:44)
[2017-06-17] MEDS: TOPIRAMATE 100 MG TAB PO SCH ×2 (09:00→20:43)
[2017-06-17] MEDS: CHOLECALCIFEROL 1,000 UNIT TAB PO SCH (09:00)
[2017-06-17] MEDS: ARIPIPRAZOLE 10 MG TAB PO SCH (09:00)
--- NOTE | 2017-06-17 09:56 | PN ---
Date/Time of Note Date/Time of Note DATE: 06/17/17 TIME: 09:52 Assessment/Plan VTE Prophylaxis VTE Prophylaxis Intervention: SCD's Lines/Catheters IV Catheter Type (from Nrs): PICC Line Central line still needed: Yes (IV access) Urinary Cath still in place: Yes Reason Cath still needed: other (indicate) (Critically ill) Assessment/Plan Assessment/Plan 51-year-old female with: 1. Right subdural hematoma, increased per repeat CT yesterday with now a 3 mm of [id number] midline shift. Patient still lethargic but unchanged neurological exam, protecting her airway Appreciate recommendations from neurosurgery, Dr. Villavicencio, plan for evacuation of right subdural hematoma this morning. Continue antiseizure medications. 2. Seizure disorder, refractory to medications apparently: Continue current medications change to IV and also status post vagal nerve stimulator. Neurology to be consulted postoperatively. 3. Developmental delay: Close neurological monitoring given acute traumatic head injury with right subdural hematoma. Continue outpatient medications as long as patient able to take p.o. safely 4. GERD: Continue Protonix 5. Chronic constipation: Continue outpatient regimen as well as patient able to take p.o. Prophylaxis: Protonix for GI prophylaxis, SCDs to lower extremity for DVT prophylaxis Disposition: PLan for right subdural hematoma evacuation this morning. Subjective 24 Hr Interval Summary Free Text/Dictation Patient's mental status unchanged, she is protecting her airway, she is responding to voice but lethargic. No seizures since admission Plan for right subdural evacuation this morning with Dr. Villavicencio Exam/Review of Systems Vital Signs Vitals Vital Signs Date Time Temp Pulse Resp B/P Pulse Ox O2 Delivery O2 Flow Rate FiO2 06/17/17 09:00 65 19 138/77 100 Nasal Cannula 2.0 06/17/17 08:00 98.3 Intake and Output 06/16/17 06/16/17 06/17/17 15:00 23:00 07:00 Intake Total 855 ml 655 ml 755 ml Output Total 515 ml 515 ml 550 ml Balance 340 ml 140 ml 205 ml Exam Constitutional: frail, other (Lethargic but responding) Neck: supple Respiratory: clear to auscultation, normal air movement Cardiovascular: nl pulses, regular rate and rhythm Gastrointestinal: non-tender, soft Musculoskeletal: nl extremities to inspection Extremities: normal pulses, other (No edema, clubbing or cyanosis) Neurological: REFERRAL SPECIALIST II-XII intact, lethargic Results Result Diagram: 06/17/17 0400 06/17/17 0400 Results 24 hrs Laboratory Tests Test 06/16/17 10:09 06/17/17 04:00 White Blood Count 13.4 H 11.3 H Red Blood Count 4.09 L 3.83 L Hemoglobin 12.6 12.0 Hematocrit 37.8 35.6 L Mean Corpuscular Volume 92.4 93.0 Mean Corpuscular Hemoglobin 30.8 31.3 Mean Corpuscular Hemoglobin Concent 33.3 33.7 Red Cell Distribution Width 12.5 12.1 Platelet Count 224 207 Mean Platelet Volume 10.6 H 10.9 H Neutrophils % 71.2 65.9 Lymphocytes % 16.2 23.6 Monocytes % 12.1 H 9.8 Eosinophils % 0.0 0.0 Basophils % 0.1 0.3 Nucleated Red Blood Cells % 0.0 0.0 Neutrophils # 9.5 H 7.5 Lymphocytes # 2.2 2.7 Monocytes # 1.6 H 1.1 H Eosinophils # 0.0 0.0 Basophils # 0.0 0.0 Nucleated Red Blood Cells # 0.0 0.0 Sodium Level 141 140 Potassium Level 4.1 4.0 Chloride Level 103 100 Carbon Dioxide Level 24 28 Anion Gap 18 H 16 Blood Urea Nitrogen 15 12 Creatinine 0.58 0.60 Glucose Level 139 # 123 Calcium Level 8.9 9.0 Phosphorus Level 3.2 Magnesium Level 1.8 Total Bilirubin 0.2 Direct Bilirubin 0.00 Indirect Bilirubin 0.2 Aspartate Amino Transf (AST/SGOT) 33 Alanine Aminotransferase (ALT/SGPT) 25 Alkaline Phosphatase 50 Total Protein 7.7 Albumin 3.9 Globulin 3.80 H Albumin/Globulin Ratio 1.02 Activated Partial Thromboplast Time 30.3 Medications Medications Current Medications Aripiprazole (Abilify) 10 mg DAILY PO ; Start 06/16/17 at 09:00 Cholecalciferol (Vitamin D) 1,000 unit DAILY PO ; Start 06/16/17 at 09:00 Topiramate (Topamax Sprinkle) 50 mg BID PO ; Start 06/15/17 at 21:00 Topiramate (Topamax) 100 mg BID PO ; Start 06/15/17 at 21:00 Lorazepam (Ativan) 2 mg Q1H PRN IV seizure; Start 06/15/17 at 20:30 Acetaminophen (Tylenol Tab) 650 mg Q4H PRN PO pain/fever; Start 06/15/17 at 20: 30 Morphine Sulfate (morphine) 2 mg Q2H PRN IV pain; Start 06/15/17 at 20:30 Ondansetron HCl 4 mg 4 mg Q4H PRN IV nausea; Start 06/15/17 at 20:30 Potassium Chloride/Dextrose/ Sod Cl 1,000 ml @ 100 mls/hr Q10H IV Last administered on 06/16/17 22:34; Admin Dose 100 MLS/HR; Start 06/16/17 at 04:12 Levetiracetam 100 ml @ 400 mls/hr Q12 IVPB Last administered on 06/17/17 08:31 ; Admin Dose 400 MLS/HR; Start 06/16/17 at 11:00 Valproate Sodium/ Sodium Chloride (Depacon/NS) 55 ml @ 55 mls/hr Q8 IVPB Last administered on 06/17/17 06:27; Admin Dose 55 MLS/HR; Start 06/16/17 at 11:00 Docusate Sodium (Colace) 100 mg DAILY PRN PO CONSTIPATION; Start 06/16/17 at 10: 30 Lactulose (Enulose) 20 gm BID PRN PO CONSTIPATION; Start 06/16/17 at 10:30 IV Flush (NS 10 ml) 10 ml PRN PRN IV IV PROTOCOL; Start 06/16/17 at 15:30 Labetalol HCl (Labetalol) 10 mg Q10M PRN IV ELEVATED BLOOD PRESSURE; Start 06/16 at 17:00 Hydralazine HCl (Apresoline) 10 mg Q4H PRN IV ELEVATED BLOOD PRESSURE; Start at 17:00 Procedures Procedures PROCEDURE: CT Brain without contrast. CLINICAL INDICATION: Subdural hemorrhages TECHNIQUE: Axial images from the skull base through the vertex without IV contrast. Multiplanar reformatted images were made. Images were reviewed on a PACS workstation. The CTDIvol is 45.01 mGy and the DLP is 720.23 mGycm. One or more of the following dose reduction techniques were used: automated exposure control, adjustment of the mA and/or kV according to patient size, or use of iterative reconstruction technique. COMPARISON: 06/15/2017 FINDINGS: There has been significant interval increase of the right subdural hemorrhage. This previously measured 12 mm adjacent to the anterior right frontal lobe now measures 19 mm. Right subdural blood in the posterior high right frontoparietal region now measures 5-6 mm in greatest diameter and previously measured 1-2 mm in greatest diameter. Extra-axial blood along the falx and cerebellar tentorium is also increased, measuring 6 mm along the falx and 6 mm on the right cerebellar tentorium. There is now 3 mm of [id number] midline shift. Posterior left frontal parietal subdural hematoma is stable or slightly decreased, measuring 8 mm in diameter and previously measuring 9 mm in diameter. Ventricular size is unchanged. Cerebellar atrophy is again seen. Right post craniotomy changes are again seen. Underlying atrophy and chronic microvascular ischemic changes are again seen. Old right inferior frontal lobe encephalomalacia. The visualized paranasal sinuses and mastoids are clear. IMPRESSION: Increase in right subdural hematoma and blood along the falx and cerebellar tentorium. [id number] midline shift. Results were called to Dr Thakkar at 06/16/2017 7:28:58 AM Critical results: Intracranial hemorrhage ALEXANDER DARBY Jun 17, 2017 09:56
[2017-06-17] MEDS ORDERED: GELATIN SIZE 100 SPONGE ONE (11:39)
[2017-06-17] MEDS ORDERED: BUPIVACAINE 0.25% (MPF) 30 ML INJ ONE (11:39)
[2017-06-17] MEDS ORDERED: THROMBIN 5000 UNIT VIAL ONE (11:40)
[2017-06-17] MEDS ORDERED: POLYMYXIN/BACITRACIN 1L IRRIG ONE (11:40)
[2017-06-17] MEDS ORDERED: PROPOFOL 20 ML ONE (11:51)
[2017-06-17] MEDS ORDERED: ROCURONIUM 50 MG INJ ONE (11:51)
[2017-06-17] MEDS ORDERED: LIDOCAINE 2% (SDV) 5 ML INJ ONE (11:51)
[2017-06-17] MEDS ORDERED: MIDAZOLAM 1 MG/ML 2 ML INJ ONE (12:30)
[2017-06-17] MEDS ORDERED: PHENYLephrine (100 MCG/ML) 5ML SYG ONE (13:08)
[2017-06-17] MEDS ORDERED: BACITRACIN/POLYMYXIN 28.35 GM OINT TOP ONE (14:37)
[2017-06-17] MEDS ORDERED: GLYCOPYRROLATE 0.4 MG INJ ONE (14:43)
[2017-06-17] MEDS ORDERED: NEOSTIGMINE 3 MG/3 ML SYRINGE ONE (14:43)
--- NOTE | 2017-06-17 14:58 | OPR ---
Date/Time of Note Date/Time of Note DATE: 06/17/17 TIME: 14:56 Operative Report Preoperative Diagnosis SUBDURAL HEMATOMA Postoperative Diagnosis LUKAS Operation/Procedure Performed RIGHT FRONTAL CRANIOTOMY FOR EVACUATION OF SDH Surgeon: SIMRAN LARES MD Anesthesia Type: general Estimated Blood Loss: 150 - 200 ml's Transfusion Required: no Specimens CLOT Grafts/Implants: none Complications: no SIMRAN LARES MD Jun 17, 2017 14:58
[2017-06-18] VITALS (52 sets, daily range): BP systolic 103–143; BP diastolic 48–73; PULSE 71–110; RESP 15–57
[2017-06-18] MEDS: morphine 2 MG INJ IV PRN ×5 (00:41→22:53)
[2017-06-18] MEDS: D5-NS + KCL 40 MEQ 1,000 ML IV SCH ×2 (03:11→17:41)
[2017-06-18 05:34] LABS: ABNORMAL IP MESSAGE 1; BASOPHILS % 0.3 % (0.0-2.0); EOSINOPHILS % 0.1 % (0.0-7.0); HEMOGLOBIN 9.8 g/dl (12.0-16.0); LYMPHOCYTES # 2.8 10^3/ul (0.8-2.9); LYMPHOCYTES % 19.1 % (15.0-51.0); MEAN CORPUSCULAR HEMOGLOBIN 31.1 pg (29.0-33.0); MEAN CORPUSCULAR HGB CONC 33.8 g/dl (32.0-37.0); MEAN CORPUSCULAR VOLUME 92.1 fl (82.0-101.0); MEAN PLATELET VOLUME 11.1 fl (7.4-10.4); NEUTROPHIL # 9.7 10^3/ul (1.6-7.5); NEUTROPHILS % 66.1 % (39.0-77.0); PLATELET COUNT 186 10^3/UL (140-415); RED BLOOD COUNT 3.15 10^6/ul (4.20-5.40); RED CELL DISTRIBUTION WIDTH 12.3 % (11.5-14.5); WHITE BLOOD COUNT 14.7 10^3/ul (4.8-10.8)
[2017-06-18] MEDS: VALPROATE INJ 500 MG in SOD CHLORIDE 0.9% 50 ML IVPB SCH ×3 (05:55→21:50)
[2017-06-18 06:01] LABS: POSITIVE DIFF @See below
[2017-06-18 06:02] LABS: MONOCYTES % 13.9 % (0.0-11.0)
[2017-06-18 06:19] LABS: MAGNESIUM 1.6 mg/dl (1.7-2.5)
[2017-06-18 06:28] LABS: CALCIUM 8.5 mg/dl (8.4-10.2); CREATININE 0.62 mg/dl (0.44-1.00); POTASSIUM 4.1 mmol/L (3.5-5.1)
[2017-06-18] MEDS: PANTOPRAZOLE (EC) 40 MG TAB PO SCH (07:05)
[2017-06-18] MEDS: TOPIRAMATE SPRINKLE 25 MG CAP PO SCH ×2 (08:44→20:34)
[2017-06-18] MEDS: TOPIRAMATE 100 MG TAB PO SCH ×2 (08:44→20:33)
[2017-06-18] MEDS: ARIPIPRAZOLE 10 MG TAB PO SCH (08:44)
[2017-06-18] MEDS: CHOLECALCIFEROL 1,000 UNIT TAB PO SCH (08:44)
[2017-06-18] MEDS: METOCLOPRAMIDE 10 MG INJ IV SCH ×3 (08:53→17:56)
[2017-06-18] MEDS ORDERED: MAGNESIUM SULFATE 2 GM/50 ML 50 ML IVPB ONE (09:30)
[2017-06-18] MEDS: LEVETIRACETAM 1000 MG (PMX) 100 ML IVPB SCH ×2 (09:31→20:33)
--- NOTE | 2017-06-18 09:59 | PN ---
Date/Time of Note Date/Time of Note DATE: 06/18/17 TIME: 09:50 Assessment/Plan VTE Prophylaxis VTE Prophylaxis Intervention: SCD's Lines/Catheters IV Catheter Type (from Nrs): PICC Line Central line still needed: Yes (IV access) Urinary Cath still in place: Yes Reason Cath still needed: other (indicate) (POD#1 ) Assessment/Plan Assessment/Plan 51-year-old female with: 1. Right subdural hematoma, increased per repeat CT yesterday with now a 3 mm of [id number] midline shift. Status post subdural hematoma drainage POD#1 Patient much more awake this morning, passed swallow eval. Neurosurgery, Dr. Villavicencio following. Continue antiseizure medications. 2. Seizure disorder, refractory to medications apparently: Continue current medications will change back to p.o. once patient more stable from neurosurgical standpoint, she is doing very well however. Status post vagal nerve stimulator. Neurology to be consulted if needed. 3. Developmental delay: Close neurological monitoring given acute traumatic head injury with right subdural hematoma. Resume outpatient medications. 4. GERD: Continue Protonix 5. Chronic constipation: Continue outpatient regimen as well as patient able to take p.o. Prophylaxis: Protonix for GI prophylaxis, SCDs to lower extremity for DVT prophylaxis Disposition: Status post right subdural hematoma evacuation, drain in place, neurosurgery following. Subjective 24 Hr Interval Summary Free Text/Dictation Patient is status post evacuation of right subdural hematoma, POD#1, drain in place. She is doing well, mental status seems to be close to baseline, she is primarily Tagalog speaking Exam/Review of Systems Vital Signs Vitals Vital Signs Date Time Temp Pulse Resp B/P Pulse Ox O2 Delivery O2 Flow Rate FiO2 06/18/17 08:30 75 19 143/65 94 Room Air 06/18/17 06:00 2.0 06/18/17 04:00 100.1 Intake and Output 06/17/17 06/17/17 06/18/17 15:00 23:00 07:00 Intake Total 575 ml 1605 ml 860 ml Output Total 350 ml 875 ml 765 ml Balance 225 ml 730 ml 95 ml Exam Constitutional: alert, oriented, well developed Respiratory: clear to auscultation, normal air movement Cardiovascular: nl pulses, regular rate and rhythm Gastrointestinal: non-tender, soft Musculoskeletal: nl extremities to inspection Extremities: normal pulses, other (No edema, clubbing or cyanosis) 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 intact, nl mental status (Close to baseline at this point), other (Bedrest, not assessed) Results Result Diagram: 06/18/17 0413 06/18/17 0413 Results 24 hrs Laboratory Tests Test 06/18/17 04:13 White Blood Count 14.7 #H Red Blood Count 3.15 L Hemoglobin 9.8 L Hematocrit 29.0 L Mean Corpuscular Volume 92.1 Mean Corpuscular Hemoglobin 31.1 Mean Corpuscular Hemoglobin Concent 33.8 Red Cell Distribution Width 12.3 Platelet Count 186 Mean Platelet Volume 11.1 H Neutrophils % 66.1 Lymphocytes % 19.1 Monocytes % 13.9 H Eosinophils % 0.1 Basophils % 0.3 Nucleated Red Blood Cells % 0.0 Neutrophils # 9.7 H Lymphocytes # 2.8 Monocytes # 2.0 H Eosinophils # 0.0 Basophils # 0.0 Nucleated Red Blood Cells # 0.0 Sodium Level 139 Potassium Level 4.1 Chloride Level 101 Carbon Dioxide Level 28 Anion Gap 14 Blood Urea Nitrogen 9 Creatinine 0.62 Glucose Level 121 Calcium Level 8.5 Phosphorus Level 3.0 Magnesium Level 1.6 L Medications Medications Current Medications Aripiprazole (Abilify) 10 mg DAILY PO ; Start 06/16/17 at 09:00 Cholecalciferol (Vitamin D) 1,000 unit DAILY PO ; Start 06/16/17 at 09:00 Topiramate (Topamax Sprinkle) 50 mg BID PO ; Start 06/15/17 at 21:00 Topiramate (Topamax) 100 mg BID PO ; Start 06/15/17 at 21:00 Lorazepam (Ativan) 2 mg Q1H PRN IV seizure; Start 06/15/17 at 20:30 Acetaminophen (Tylenol Tab) 650 mg Q4H PRN PO pain/fever; Start 06/15/17 at 20: 30 Morphine Sulfate (morphine) 2 mg Q2H PRN IV pain Last administered on t 08:37; Admin Dose 2 MG; Start 06/15/17 at 20:30 Ondansetron HCl 4 mg 4 mg Q4H PRN IV nausea; Start 06/15/17 at 20:30 Potassium Chloride/Dextrose/ Sod Cl 1,000 ml @ 100 mls/hr Q10H IV Last administered on 06/18/17 03:11; Admin Dose 100 MLS/HR; Start 06/16/17 at 04:12 Levetiracetam 100 ml @ 400 mls/hr Q12 IVPB Last administered on 06/18/17 09: 31; Admin Dose 400 MLS/HR; Start 06/16/17 at 11:00 Valproate Sodium/ Sodium Chloride (Depacon/NS) 55 ml @ 55 mls/hr Q8 IVPB Last administered on 06/18/17 05:55; Admin Dose 55 MLS/HR; Start 06/16/17 at 11:00 Docusate Sodium (Colace) 100 mg DAILY PRN PO CONSTIPATION; Start 06/16/17 at 10: 30 Lactulose (Enulose) 20 gm BID PRN PO CONSTIPATION; Start 06/16/17 at 10:30 IV Flush (NS 10 ml) 10 ml PRN PRN IV IV PROTOCOL; Start 06/16/17 at 15:30 Labetalol HCl (Labetalol) 10 mg Q10M PRN IV ELEVATED BLOOD PRESSURE; Start 06/16 at 17:00 Hydralazine HCl 10 mg 10 mg Q4H PRN IV ELEVATED BLOOD PRESSURE; Start 06/16/17 at 17:00 Magnesium Sulfate (Magnesium Sulfate 2 Gm/50 ml) 50 ml @ 25 mls/hr ONCE ONCE IVPB ; Start 06/18/17 at 09:30; Stop 06/18/17 at 11:29 ALEXANDER DARBY Jun 18, 2017 09:59
--- NOTE | 2017-06-18 11:11 | RADRPT ---
PROCEDURE: CT Brain without contrast. CLINICAL INDICATION: Status post surgery with drain placement for subdural hemorrhage. TECHNIQUE: A CT of the brain was performed on a multidetector CT scanner utilizing axial sections from the skull base through the vertex without contrast. Images were reviewed on a high-resolution [employer] workstation. Exam CTDI = 44.26 mGy and the DLP = 720.23 mGy-cm. One or more of the following dose reduction techniques were used: Automated exposure control Adjustment of the mA and/or kV according to patient size. Use of iterative reconstruction technique. COMPARISON: CT head 06/16/2017. FINDINGS: There has been interval right frontal craniotomy and evacuation of the right convexity subdural hemo rrhage. A subgaleal drain is identified overlying the right frontal temporal region. There remains m inimal extra-axial hemorrhage and small foci of pneumocephalus. There has been interval improvement of mass effect upon the right lateral ventricle and resolution of midline shift. There has been no substantial change in subdural hemorrhage along the falx and bilateral parietal and occipital lobes . Subdural hemorrhage overlying the tentorium also appears similar to prior. Redemonstrated is an area of encephalomalacia in the right anterior inferior frontal lobe. There is atrophy of the cerebe llum. The density of the brain is normal and the bolivar/white matter differentiation is well preserved . Mild patchy diffuse deep white matter microangiopathic ischemic change is seen. The osseous st ructures are unremarkable. Paranasal sinuses are clear. Vascular calcifications are identified. IMPRESSION: 1. Status post interval right frontal craniotomy with evacuation of the right convexity subdural he morrhage. Minimal extra-axial hemorrhage and small foci of pneumocephalus is seen in the surgical be d. Resolution of mass effect on the right lateral ventricle and midline shift. Subgaleal surgical d rain is identified. 2. No substantial change in subdural hemorrhage along the falx, overlying the bilateral parietal an d occipital lobes, and tentorium with slight redistribution. 3. Encephalomalacia involving the right anterior inferior frontal lobe. 4. Mild generalized volume loss. Mild chronic microvascular ischemic changes. RPTAT: BB .Bertha Waters MD, MD Date Time Electronically viewed and signed by .Bertha Waters MD, on 06/18/2017 11:10 .O/
[2017-06-18] MEDS: DOCUSATE SODIUM 100 MG CAP PO PRN (14:40)
[2017-06-18] MEDS: NEOMYC/POLYMYX/BACIT 30 GM OINT TOP SCH (20:33)
[2017-06-19] VITALS (41 sets, daily range): BP systolic 97–138; BP diastolic 50–122; PULSE 73–126; RESP 11–28
[2017-06-19] MEDS: ACETAMINOPHEN 325 MG TAB PO PRN ×2 (04:39→21:02)
[2017-06-19] MEDS: D5-NS + KCL 40 MEQ 1,000 ML IV SCH ×3 (04:39→17:00)
[2017-06-19] MEDS: LORAZEPAM 2 MG INJ IV PRN (04:57)
[2017-06-19] MEDS: VALPROATE INJ 500 MG in SOD CHLORIDE 0.9% 50 ML IVPB SCH ×3 (05:33→22:29)
[2017-06-19 06:03] LABS: ABNORMAL IP MESSAGE 1; BASOPHILS % 0.1 % (0.0-2.0); EOSINOPHILS % 0.1 % (0.0-7.0); HEMOGLOBIN 8.8 g/dl (12.0-16.0); LYMPHOCYTES # 2.6 10^3/ul (0.8-2.9); LYMPHOCYTES % 18.6 % (15.0-51.0); MEAN CORPUSCULAR HEMOGLOBIN 30.7 pg (29.0-33.0); MEAN CORPUSCULAR HGB CONC 32.6 g/dl (32.0-37.0); MEAN CORPUSCULAR VOLUME 94.1 fl (82.0-101.0); MEAN PLATELET VOLUME 11.1 fl (7.4-10.4); MONOCYTE # 2.5 10^3/ul (0.3-0.9); NEUTROPHIL # 8.7 10^3/ul (1.6-7.5); NEUTROPHILS % 62.7 % (39.0-77.0); PLATELET COUNT 191 10^3/UL (140-415); RED BLOOD COUNT 2.87 10^6/ul (4.20-5.40); RED CELL DISTRIBUTION WIDTH 12.2 % (11.5-14.5); WHITE BLOOD COUNT 13.8 10^3/ul (4.8-10.8)
--- NOTE | 2017-06-19 06:27 | RADRPT ---
PROCEDURE: CT Brain without contrast. CLINICAL INDICATION: Altered mental status TECHNIQUE: Axial images from the skull base through the vertex without IV contrast. Multiplanar r eformatted images were made. Images were reviewed on a PACS workstation. The CTDIvol is 46.6 mGy a nd the DLP is 817.70 mGycm. One or more of the following dose reduction techniques were used: autom ated exposure control, adjustment of the mA and/or kV according to patient size, or use of iterative reconstruction technique. COMPARISON: 06/18/2017 FINDINGS: Again seen are changes from prior right frontal craniotomy with overlying skin oralia and cranial s crew plate. Subdural drain is again seen. Low attenuation in the lower right frontal lobe white ma tter and residual subarachnoid and subdural blood is similar to prior. Intracranial air has decreas ed slightly. Blood along the cerebellar tentorium is similar to prior. Cerebellar atrophy is again seen. Cortical atrophy and chronic microvascular ischemic changes are again seen. The visualized p aranasal sinuses and mastoids are clear. IMPRESSION: Stable extraaxial blood following right frontal craniotomy and subdural evacuation. Decreased intra cranial air. RPTAT: [facility] Physician Edwin Date Time Electronically viewed and signed by Physician Edwin on 06/19/2017 06:27 LE/
[2017-06-19 06:33] LABS: POSITIVE DIFF @See below
[2017-06-19 07:25] LABS: CALCIUM 8.8 mg/dl (8.4-10.2); CREATININE 0.62 mg/dl (0.44-1.00); MAGNESIUM 2.1 mg/dl (1.7-2.5); PHOSPHORUS 3.3 mg/dl (2.5-4.9); POTASSIUM 4.1 mmol/L (3.5-5.1)
[2017-06-19] MEDS: CHOLECALCIFEROL 1,000 UNIT TAB PO SCH (08:21)
[2017-06-19] MEDS: PANTOPRAZOLE (EC) 40 MG TAB PO SCH (08:21)
[2017-06-19] MEDS: ARIPIPRAZOLE 10 MG TAB PO SCH (08:21)
[2017-06-19] MEDS: METOCLOPRAMIDE 10 MG INJ IV SCH ×3 (08:23→18:00)
[2017-06-19] MEDS: LEVETIRACETAM 1000 MG (PMX) 100 ML IVPB SCH ×2 (08:23→20:42)
[2017-06-19] MEDS: NEOMYC/POLYMYX/BACIT 30 GM OINT TOP SCH ×2 (08:24→21:02)
[2017-06-19] MEDS: TOPIRAMATE SPRINKLE 25 MG CAP PO SCH ×2 (08:42→20:42)
[2017-06-19] MEDS: TOPIRAMATE 100 MG TAB PO SCH ×2 (08:42→20:42)
--- NOTE | 2017-06-19 09:34 | PN ---
Date/Time of Note Date/Time of Note DATE: 06/19/17 TIME: 09:19 Assessment/Plan VTE Prophylaxis VTE Prophylaxis Intervention: SCD's Lines/Catheters IV Catheter Type (from Nrs): PICC Line Central line still needed: Yes (IV access) Urinary Cath still in place: Yes Reason Cath still needed: other (indicate) (Bed rest) Assessment/Plan Assessment/Plan 51-year-old female with: 1. Right subdural hematoma, increased per repeat CT yesterday with now a 3 mm of [id number] midline shift. Status post subdural hematoma drainage POD#2 Patient status post seizure episode overnight, also got morphine this morning for pain, she is currently lethargic but easily arousable. Neurosurgery, Dr. Villavicencio following. Continue antiseizure medications. 2. Seizure disorder, refractory to medications apparently: Continue current medications will change back to p.o. once patient more stable from neurosurgical standpoint. Status post vagal nerve stimulator. Neurology to be consulted given episode of seizure overnight. 3. Developmental delay: Close neurological monitoring given acute traumatic head injury with right subdural hematoma. Resume outpatient medications. 4. GERD: Continue Protonix 5. Chronic constipation: Continue outpatient regimen as well as patient able to take p.o. Prophylaxis: Protonix for GI prophylaxis, SCDs to lower extremity for DVT prophylaxis Disposition: Status post right subdural hematoma evacuation, drain in place, neurosurgery following and neurology to be consulted today. Subjective 24 Hr Interval Summary Free Text/Dictation Patient with episode of seizure overnight, given Ativan and currently on Keppra and Depakote Also with Vagal stimulator in place, will consult neurology Subdural drain in place Exam/Review of Systems Vital Signs Vitals Vital Signs Date Time Temp Pulse Resp B/P Pulse Ox O2 Delivery O2 Flow Rate FiO2 06/19/17 07:00 73 17 109/69 100 Nasal Cannula 2.0 06/19/17 04:30 100.8 Intake and Output 06/18/17 06/18/17 06/19/17 15:00 23:00 07:00 Intake Total 1165 ml 1155 ml 1255 ml Output Total 1610 ml 1205 ml 925 ml Balance -445 ml -50 ml 330 ml Exam Constitutional: other (Lethargic, status post seizure overnight ) Head: other (Right subdural drain) Respiratory: clear to auscultation, normal air movement Cardiovascular: nl pulses, regular rate and rhythm Gastrointestinal: non-tender, soft Musculoskeletal: nl extremities to inspection Extremities: normal pulses, other (No edema, clubbing or cyanosis) 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, lethargic, other (Post ictal, also status post narcotics) Results Result Diagram: 06/19/17 0445 06/19/17 0650 Results 24 hrs Laboratory Tests Test 06/19/17 03:48 06/19/17 04:45 06/19/17 06:50 Bedside Glucose 105 White Blood Count 13.8 H Red Blood Count 2.87 L Hemoglobin 8.8 L Hematocrit 27.0 L Mean Corpuscular Volume 94.1 Mean Corpuscular Hemoglobin 30.7 Mean Corpuscular Hemoglobin Concent 32.6 Red Cell Distribution Width 12.2 Platelet Count 191 Mean Platelet Volume 11.1 H Neutrophils % 62.7 Lymphocytes % 18.6 Monocytes % 18.0 H Eosinophils % 0.1 Basophils % 0.1 Nucleated Red Blood Cells % 0.0 Neutrophils # 8.7 H Lymphocytes # 2.6 Monocytes # 2.5 H Eosinophils # 0.0 Basophils # 0.0 Nucleated Red Blood Cells # 0.0 Sodium Level 140 Potassium Level 4.1 Chloride Level 98 Carbon Dioxide Level 30 Anion Gap 16 Blood Urea Nitrogen 9 Creatinine 0.62 Glucose Level 96 Calcium Level 8.8 Phosphorus Level 3.3 Magnesium Level 2.1 Troponin I < 0.012 Medications Medications Current Medications Aripiprazole (Abilify) 10 mg DAILY PO Last administered on 06/19/17 08:21; Admin Dose 10 MG; Start 06/16/17 at 09:00 Cholecalciferol (Vitamin D) 1,000 unit DAILY PO Last administered on 06/19/17 08:21; Admin Dose 1,000 UNIT; Start 06/16/17 at 09:00 Topiramate (Topamax Sprinkle) 50 mg BID PO Last administered on 06/19/17 08:42 ; Admin Dose 50 MG; Start 06/15/17 at 21:00 Topiramate (Topamax) 100 mg BID PO Last administered on 06/19/17 08:42; Admin Dose 100 MG; Start 06/15/17 at 21:00 Lorazepam (Ativan) 2 mg Q1H PRN IV seizure Last administered on 06/19/17 04:57 ; Admin Dose 2 MG; Start 06/15/17 at 20:30 Acetaminophen (Tylenol Tab) 650 mg Q4H PRN PO pain/fever Last administered on 04:39; Admin Dose 650 MG; Start 06/15/17 at 20:30 Morphine Sulfate (morphine) 2 mg Q2H PRN IV pain Last administered on 22:53; Admin Dose 2 MG; Start 06/15/17 at 20:30 Ondansetron HCl 4 mg 4 mg Q4H PRN IV nausea; Start 06/15/17 at 20:30 Potassium Chloride/Dextrose/ Sod Cl 1,000 ml @ 100 mls/hr Q10H IV Last administered on 06/19/17 04:39; Admin Dose 100 MLS/HR; Start 06/16/17 at 04:12 Levetiracetam 100 ml @ 400 mls/hr Q12 IVPB Last administered on 06/19/17 08: 23; Admin Dose 400 MLS/HR; Start 06/16/17 at 11:00 Valproate Sodium/ Sodium Chloride (Depacon/NS) 55 ml @ 55 mls/hr Q8 IVPB Last administered on 06/19/17 05:33; Admin Dose 55 MLS/HR; Start 06/16/17 at 11:00 Docusate Sodium (Colace) 100 mg DAILY PRN PO CONSTIPATION Last administered on 06/18/17 14:40; Admin Dose 100 MG; Start 06/16/17 at 10:30 Lactulose (Enulose) 20 gm BID PRN PO CONSTIPATION; Start 06/16/17 at 10:30 IV Flush (NS 10 ml) 10 ml PRN PRN IV IV PROTOCOL; Start 06/16/17 at 15:30 Labetalol HCl (Labetalol) 10 mg Q10M PRN IV ELEVATED BLOOD PRESSURE; Start 06/16 at 17:00 Hydralazine HCl (Apresoline) 10 mg Q4H PRN IV ELEVATED BLOOD PRESSURE; Start at 17:00 Neomycin/ Polymyxin/ Bacitracin (Neosporin Topical Oint) 1 applic BID TOP Last administered on 06/19/17 08:24; Admin Dose 1 APPLIC; Start 06/18/17 at 21:00 Procedures Procedures PROCEDURE: CT Brain without contrast. CLINICAL INDICATION: Altered mental status TECHNIQUE: Axial images from the skull base through the vertex without IV contrast. Multiplanar reformatted images were made. Images were reviewed on a PACS workstation. The CTDIvol is 46.6 mGy and the DLP is 817.70 mGycm. One or more of the following dose reduction techniques were used: automated exposure control, adjustment of the mA and/or kV according to patient size, or use of iterative reconstruction technique. COMPARISON: 06/18/2017 FINDINGS: Again seen are changes from prior right frontal craniotomy with overlying skin oralia and cranial screw plate. Subdural drain is again seen. Low attenuation in the lower right frontal lobe white matter and residual subarachnoid and subdural blood is similar to prior. Intracranial air has decreased slightly. Blood along the cerebellar tentorium is similar to prior. Cerebellar atrophy is again seen. Cortical atrophy and chronic microvascular ischemic changes are again seen. The visualized paranasal sinuses and mastoids are clear. IMPRESSION: Stable extraaxial blood following right frontal craniotomy and subdural evacuation. Decreased intracranial air. RPTAT: [facility] Physician Edwin Date Time Electronically viewed and signed by Physician Edwin on 06/19/2017 06 :27 ALEXANDER MAYNARD Jun 19, 2017 09:29
[2017-06-20] VITALS (26 sets, daily range): BP systolic 89–133; BP diastolic 59–83; PULSE 72–145; RESP 15–32
[2017-06-20 04:53] LABS: ABNORMAL IP MESSAGE 1; BASOPHILS % 0.2 % (0.0-2.0); EOSINOPHILS % 0.3 % (0.0-7.0); HEMOGLOBIN 9.2 g/dl (12.0-16.0); LYMPHOCYTES # 3.4 10^3/ul (0.8-2.9); LYMPHOCYTES % 22.9 % (15.0-51.0); MEAN CORPUSCULAR HEMOGLOBIN 31.6 pg (29.0-33.0); MEAN CORPUSCULAR HGB CONC 34.1 g/dl (32.0-37.0); MEAN CORPUSCULAR VOLUME 92.8 fl (82.0-101.0); MEAN PLATELET VOLUME 10.8 fl (7.4-10.4); MONOCYTE # 2.4 10^3/ul (0.3-0.9); NEUTROPHIL # 8.8 10^3/ul (1.6-7.5); NEUTROPHILS % 59.8 % (39.0-77.0); PLATELET COUNT 232 10^3/UL (140-415); RED BLOOD COUNT 2.91 10^6/ul (4.20-5.40); RED CELL DISTRIBUTION WIDTH 11.9 % (11.5-14.5); WHITE BLOOD COUNT 14.7 10^3/ul (4.8-10.8)
[2017-06-20 04:58] LABS: POSITIVE DIFF @See below
[2017-06-20 05:09] LABS: CREATININE 0.67 mg/dl (0.44-1.00); POTASSIUM 4.1 mmol/L (3.5-5.1)
[2017-06-20] MEDS: PANTOPRAZOLE (EC) 40 MG TAB PO SCH (06:36)
[2017-06-20] MEDS: VALPROATE INJ 500 MG in SOD CHLORIDE 0.9% 50 ML IVPB SCH ×2 (06:36→13:37)
[2017-06-20] MEDS: METOCLOPRAMIDE 10 MG INJ IV SCH ×3 (06:36→17:37)
[2017-06-20] MEDS: D5-NS + KCL 40 MEQ 1,000 ML IV SCH ×2 (08:12→18:39)
--- NOTE | 2017-06-20 09:14 | PN ---
Date/Time of Note Date/Time of Note DATE: 06/20/17 TIME: 08:57 Assessment/Plan VTE Prophylaxis VTE Prophylaxis Intervention: SCD's Lines/Catheters IV Catheter Type (from Nrs): PICC Line Central line still needed: Yes (IV access) Urinary Cath still in place: Yes Reason Cath still needed: other (indicate) (Bed rest) Assessment/Plan Assessment/Plan 51-year-old female with: 1. Right subdural hematoma, increased per repeat CT yesterday with now a 3 mm of [id number] midline shift. Status post subdural hematoma drainage POD#3 Patient's mental status seems to be at baseline this morning, she has a mildly slurred speech at baseline confirm with mother, likely secondary to make multiple medications for seizures. Seizure precautions in place. Sitter at bedside as patient has a tendency to be impulsive apparently and try to get up. Subdural drain still in place. Neurosurgery, Dr. Villavicencio following. Continue antiseizure medications. Ativan as needed seizures, one-to-one sitter. 2. Seizure disorder, refractory to medications apparently: Continue current medications will change back to p.o. once patient more stable from neurosurgical standpoint. Status post vagal nerve stimulator. Patient will have to follow-up with a [facility] neurology regarding adjustment of her vagal nerve stimulator to help with seizures refractory to medications. 3. Developmental delay: Close neurological monitoring given acute traumatic head injury with right subdural hematoma. Continue outpatient medications. 4. GERD: Continue Protonix 5. Chronic constipation: Continue outpatient regimen as well as patient able to take p.o. Prophylaxis: Protonix for GI prophylaxis, SCDs to lower extremity for DVT prophylaxis Disposition: Status post right subdural hematoma evacuation, drain in place, neurosurgery following and will transfer to a medical surgical bed once subdural drain removed. She will need a one-to-one sitter and ongoing seizure precautions. Subjective 24 Hr Interval Summary Free Text/Dictation Patient more awake this morning, no seizure reported, continue current medications. Drain still in place, once removed and patient stable will transfer to a medical floor. Exam/Review of Systems Vital Signs Vitals Vital Signs Date Time Temp Pulse Resp B/P Pulse Ox O2 Delivery O2 Flow Rate FiO2 06/20/17 08:00 86 06/20/17 03:00 20 89/62 99 Room Air 06/20/17 00:00 99.5 06/19/17 07:00 2.0 Intake and Output 06/19/17 06/19/17 06/20/17 15:00 23:00 07:00 Intake Total 1395 ml 850 ml 900 ml Output Total 1135 ml 305 ml 1010 ml Balance 260 ml 545 ml -110 ml Exam Constitutional: alert, oriented (x2), other (Moderate developmental delay) Respiratory: clear to auscultation, normal air movement Cardiovascular: nl pulses, regular rate and rhythm Gastrointestinal: non-tender, soft Musculoskeletal: nl extremities to inspection Extremities: normal pulses, other (No edema, clubbing or cyanosis) 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, lethargic, nl mental status (At baseline), nl speech (Slightly slurred at baseline), other (Generalized weakness, bedridden) Results Result Diagram: 06/20/17 0400 06/20/17 0400 Results 24 hrs Laboratory Tests Test 06/20/17 04:00 White Blood Count 14.7 H Red Blood Count 2.91 L Hemoglobin 9.2 L Hematocrit 27.0 L Mean Corpuscular Volume 92.8 Mean Corpuscular Hemoglobin 31.6 Mean Corpuscular Hemoglobin Concent 34.1 Red Cell Distribution Width 11.9 Platelet Count 232 # Mean Platelet Volume 10.8 H Neutrophils % 59.8 Lymphocytes % 22.9 Monocytes % 16.0 H Eosinophils % 0.3 Basophils % 0.2 Nucleated Red Blood Cells % 0.0 Neutrophils # 8.8 H Lymphocytes # 3.4 H Monocytes # 2.4 H Eosinophils # 0.0 Basophils # 0.0 Nucleated Red Blood Cells # 0.0 Sodium Level 135 Potassium Level 4.1 Chloride Level 103 Carbon Dioxide Level 26 Anion Gap 10 # Blood Urea Nitrogen 9 Creatinine 0.67 Glucose Level 111 Calcium Level 9.0 Magnesium Level 2.0 Medications Medications Current Medications Aripiprazole (Abilify) 10 mg DAILY PO Last administered on 06/19/17 08:21; Admin Dose 10 MG; Start 06/16/17 at 09:00 Cholecalciferol (Vitamin D) 1,000 unit DAILY PO Last administered on 06/19/17 08:21; Admin Dose 1,000 UNIT; Start 06/16/17 at 09:00 Topiramate (Topamax Sprinkle) 50 mg BID PO Last administered on 06/19/17 20:42 ; Admin Dose 50 MG; Start 06/15/17 at 21:00 Topiramate (Topamax) 100 mg BID PO Last administered on 06/19/17 20:42; Admin Dose 100 MG; Start 06/15/17 at 21:00 Lorazepam (Ativan) 2 mg Q1H PRN IV seizure Last administered on 06/19/17 04:57 ; Admin Dose 2 MG; Start 06/15/17 at 20:30 Acetaminophen (Tylenol Tab) 650 mg Q4H PRN PO pain/fever Last administered on 21:02; Admin Dose 650 MG; Start 06/15/17 at 20:30 Morphine Sulfate (morphine) 2 mg Q2H PRN IV pain Last administered on 22:53; Admin Dose 2 MG; Start 06/15/17 at 20:30 Ondansetron HCl 4 mg 4 mg Q4H PRN IV nausea; Start 06/15/17 at 20:30 Potassium Chloride/Dextrose/ Sod Cl 1,000 ml @ 100 mls/hr Q10H IV Last administered on 06/19/17 17:00; Admin Dose 100 MLS/HR; Start 06/16/17 at 04:12 Levetiracetam 100 ml @ 400 mls/hr Q12 IVPB Last administered on 06/19/17 20: 42; Admin Dose 400 MLS/HR; Start 06/16/17 at 11:00 Valproate Sodium/ Sodium Chloride (Depacon/NS) 55 ml @ 55 mls/hr Q8 IVPB Last administered on 06/20/17 06:36; Admin Dose 55 MLS/HR; Start 06/16/17 at 11:00 Docusate Sodium (Colace) 100 mg DAILY PRN PO CONSTIPATION Last administered on 06/18/17 14:40; Admin Dose 100 MG; Start 06/16/17 at 10:30 Lactulose (Enulose) 20 gm BID PRN PO CONSTIPATION; Start 06/16/17 at 10:30 IV Flush (NS 10 ml) 10 ml PRN PRN IV IV PROTOCOL; Start 06/16/17 at 15:30 Labetalol HCl (Labetalol) 10 mg Q10M PRN IV ELEVATED BLOOD PRESSURE; Start 06/16 at 17:00 Hydralazine HCl (Apresoline) 10 mg Q4H PRN IV ELEVATED BLOOD PRESSURE; Start at 17:00 Neomycin/ Polymyxin/ Bacitracin (Neosporin Topical Oint) 1 applic BID TOP Last administered on 06/19/17t 21:02; Admin Dose 1 APPLIC; Start 06/18/17 at 21:00 ALEXANDER DARBY Jun 20, 2017 09:14
[2017-06-20] MEDS: TOPIRAMATE SPRINKLE 25 MG CAP PO SCH (09:20)
[2017-06-20] MEDS: ARIPIPRAZOLE 10 MG TAB PO SCH (09:21)
[2017-06-20] MEDS: LEVETIRACETAM 1000 MG (PMX) 100 ML IVPB SCH (09:21)
[2017-06-20] MEDS: TOPIRAMATE 100 MG TAB PO SCH (09:21)
[2017-06-20] MEDS: CHOLECALCIFEROL 1,000 UNIT TAB PO SCH (09:21)
[2017-06-20] MEDS: NEOMYC/POLYMYX/BACIT 30 GM OINT TOP SCH (09:22)
--- NOTE | 2017-06-20 11:18 | RADRPT ---
Vent Rate: 89 bpm RR Interval: 0 msec WA Interval: 126 msec QRS Duration: 78 msec QT Interval: 322 msec QTC Interval: 391 msec P-R-T Jud: 27 - 53 - 44 degrees Normal sinus rhythm Normal ECG Electronically Signed By: Raimundo Will [id number]
[2017-06-21] VITALS (24 sets, daily range): BP systolic 103–135; BP diastolic 54–85; PULSE 78–134; RESP 15–37
[2017-06-21] MEDS: TOPIRAMATE 100 MG TAB PO SCH ×3 (00:02→20:42)
[2017-06-21] MEDS: VALPROATE INJ 500 MG in SOD CHLORIDE 0.9% 50 ML IVPB SCH ×4 (00:03→22:02)
[2017-06-21] MEDS: TOPIRAMATE SPRINKLE 25 MG CAP PO SCH ×3 (00:11→20:43)
[2017-06-21] MEDS: D5-NS + KCL 40 MEQ 1,000 ML IV SCH ×4 (05:19→20:43)
[2017-06-21] MEDS: PANTOPRAZOLE (EC) 40 MG TAB PO SCH (08:04)
[2017-06-21] MEDS: METOCLOPRAMIDE 10 MG INJ IV SCH ×3 (08:04→18:04)
[2017-06-21] MEDS: ARIPIPRAZOLE 10 MG TAB PO SCH (09:00)
[2017-06-21] MEDS: NEOMYC/POLYMYX/BACIT 30 GM OINT TOP SCH ×3 (09:01→22:02)
[2017-06-21] MEDS: LEVETIRACETAM 1000 MG (PMX) 100 ML IVPB SCH ×3 (09:01→20:43)
[2017-06-21] MEDS: CHOLECALCIFEROL 1,000 UNIT TAB PO SCH (09:01)
--- NOTE | 2017-06-21 09:25 | PN ---
Date/Time of Note Date/Time of Note DATE: 06/21/17 TIME: 09:25 Assessment/Plan VTE Prophylaxis VTE Prophylaxis Intervention: SCD's Lines/Catheters IV Catheter Type (from Nrsg): PICC Line Central line still needed: Yes (For IV access) Urinary Cath still in place: Yes Reason Cath still needed: other (indicate) (On bed rest, seizure precautions) Assessment/Plan Assessment/Plan 51-year-old female with: 1. Right subdural hematoma, increased per repeat CT yesterday with now a 3 mm of [id number] midline shift. Status post subdural hematoma drainage POD#4 Patient's mental status seems to be at baseline this morning, she has a mildly slurred speech at baseline confirm with mother, likely secondary to make multiple medications for seizures. Seizure precautions in place. Sitter at bedside as patient has a tendency to be impulsive apparently and try to get up. Status post a few seconds seizure overnight. Subdural drain removed this morning by neurosurgery, Dr. Villavicencio following. Continue antiseizure medications. Ativan as needed seizures, one-to-one sitter. 2. Seizure disorder, refractory to medications apparently: Continue current medications will change back to p.o. once patient more stable from neurosurgical standpoint. Status post vagal nerve stimulator. Patient will have to follow-up with a [facility] neurology regarding adjustment of her vagal nerve stimulator to help with seizures refractory to medications. 3. Developmental delay: Close neurological monitoring given acute traumatic head injury with right subdural hematoma. Continue outpatient medications. 4. GERD: Continue Protonix 5. Chronic constipation: Continue outpatient regimen as well as patient able to take p.o. Prophylaxis: Protonix for GI prophylaxis, SCDs to lower extremity for DVT prophylaxis Disposition: Status post right subdural hematoma evacuation, drain removed this morning, neurosurgery following and will transfer to a medical surgical bed later today. She will need a one-to-one sitter and ongoing seizure precautions. Subjective 24 Hr Interval Summary Free Text/Dictation Patient lethargic this morning, she has a few second seizure overnight, no active seizure this morning. She is on no antiseizure medication along with her vagal nerve stimulator. Neurosurgery, Dr Villavicencio, removed the subdural drain this AM. Exam/Review of Systems Vital Signs Vitals Vital Signs Date Time Temp Pulse Resp B/P Pulse Ox O2 Delivery O2 Flow Rate FiO2 06/21/17 06:00 78 16 120/77 97 06/21/17 04:00 98.7 06/20/17 22:00 Room Air 06/20/17 20:30 21 06/19/17 07:00 2.0 Intake and Output 06/20/17 06/20/17 06/21/17 15:00 23:00 07:00 Intake Total 1195 ml 500 ml 255 ml Output Total 1215 ml 335 ml 1450 ml Balance -20 ml 165 ml -1195 ml Exam Constitutional: alert, frail, other (Lethargic) Head: other (Status post removal of subdural drain, sutures in place) Respiratory: clear to auscultation, normal air movement Cardiovascular: nl pulses, regular rate and rhythm Gastrointestinal: non-tender, soft Musculoskeletal: nl extremities to inspection Extremities: normal pulses, other (No edema, clubbing or cyanosis) Neurological: PLANT PRODUCTION MANAGER II-XII intact, lethargic Results Result Diagram: 06/20/17 0400 06/20/17 0400 Medications Medications Current Medications Aripiprazole (Abilify) 10 mg DAILY PO Last administered on 06/21/17 09:00; Admin Dose 10 MG; Start 06/16/17 at 09:00 Cholecalciferol (Vitamin D) 1,000 unit DAILY PO Last administered on 06/21/17 09:01; Admin Dose 1,000 UNIT; Start 06/16/17 at 09:00 Topiramate (Topamax Sprinkle) 50 mg BID PO Last administered on 06/21/17 09:01 ; Admin Dose 50 MG; Start 06/15/17 at 21:00 Topiramate (Topamax) 100 mg BID PO Last administered on 06/21/17 09:00; Admin Dose 100 MG; Start 06/15/17 at 21:00 Lorazepam (Ativan) 2 mg Q1H PRN IV seizure Last administered on 06/19/17 04:57 ; Admin Dose 2 MG; Start 06/15/17 at 20:30 Acetaminophen (Tylenol Tab) 650 mg Q4H PRN PO pain/fever Last administered on 21:02; Admin Dose 650 MG; Start 06/15/17 at 20:30 Morphine Sulfate (morphine) 2 mg Q2H PRN IV pain Last administered on 22:53; Admin Dose 2 MG; Start 06/15/17 at 20:30 Ondansetron HCl 4 mg 4 mg Q4H PRN IV nausea; Start 06/15/17 at 20:30 Potassium Chloride/Dextrose/ Sod Cl 1,000 ml @ 100 mls/hr Q10H IV Last administered on 06/21/17 05:19; Admin Dose 100 MLS/HR; Start 06/16/17 at 04:12 Levetiracetam 100 ml @ 400 mls/hr Q12 IVPB Last administered on 06/21/17 09: 01; Admin Dose 400 MLS/HR; Start 06/16/17 at 11:00 Valproate Sodium/ Sodium Chloride (Depacon/NS) 55 ml @ 55 mls/hr Q8 IVPB Last administered on 06/21/17 06:00; Admin Dose 55 MLS/HR; Start 06/16/17 at 11:00 Docusate Sodium (Colace) 100 mg DAILY PRN PO CONSTIPATION Last administered on 06/18/17 14:40; Admin Dose 100 MG; Start 06/16/17 at 10:30 Lactulose (Enulose) 20 gm BID PRN PO CONSTIPATION; Start 06/16/17 at 10:30 IV Flush (NS 10 ml) 10 ml PRN PRN IV IV PROTOCOL; Start 06/16/17 at 15:30 Labetalol HCl (Labetalol) 10 mg Q10M PRN IV ELEVATED BLOOD PRESSURE; Start 06/16 at 17:00 Hydralazine HCl (Apresoline) 10 mg Q4H PRN IV ELEVATED BLOOD PRESSURE; Start at 17:00 Neomycin/ Polymyxin/ Bacitracin (Neosporin Topical Oint) 1 applic BID TOP Last administered on 06/21/17 09:01; Admin Dose 1 APPLIC; Start 06/18/17 at 21:00 ALEXANDER DARBY Jun 21, 2017 09:25
--- NOTE | 2017-06-21 09:48 | QN ---
Documentation Comment S/P crani for evacuation of hematoma doing well continues to sz qd recent head CT (06/19) confirms excellent evacuation dc drain today ok to go to floor when cleared by other services oralia out in two weeks should follow up with me for the same SIMRAN LARES MD Jun 21, 2017 09:48
[2017-06-22] VITALS (20 sets, daily range): BP systolic 96–117; BP diastolic 51–78; PULSE 78–120; RESP 15–36
[2017-06-22] MEDS: VALPROATE INJ 500 MG in SOD CHLORIDE 0.9% 50 ML IVPB SCH ×3 (05:48→21:55)
[2017-06-22 05:55] LABS: ABNORMAL IP MESSAGE 1; BASOPHIL # 0.1 10^3/ul (0.0-0.1); BASOPHILS % 0.4 % (0.0-2.0); EOSINOPHILS # 0.1 10^3/ul (0.0-0.5); EOSINOPHILS % 0.8 % (0.0-7.0); HEMATOCRIT 27.3 % (37.0-47.0); HEMOGLOBIN 9.1 g/dl (12.0-16.0); LYMPHOCYTES # 2.7 10^3/ul (0.8-2.9); MEAN CORPUSCULAR HEMOGLOBIN 30.7 pg (29.0-33.0); MEAN CORPUSCULAR HGB CONC 33.3 g/dl (32.0-37.0); MEAN CORPUSCULAR VOLUME 92.2 fl (82.0-101.0); MEAN PLATELET VOLUME 10.3 fl (7.4-10.4); NEUTROPHIL # 8.4 10^3/ul (1.6-7.5); NUCLEATED RED BLOOD CELLS% 0.1 /100WBC (0.0-0.0); PLATELET COUNT 364 10^3/UL (140-415); RED BLOOD COUNT 2.96 10^6/ul (4.20-5.40); RED CELL DISTRIBUTION WIDTH 11.9 % (11.5-14.5); WHITE BLOOD COUNT 13.6 10^3/ul (4.8-10.8)
[2017-06-22 06:14] LABS: POSITIVE DIFF @See below
[2017-06-22 06:40] LABS: MAGNESIUM 1.9 mg/dl (1.7-2.5); PHOSPHORUS 3.7 mg/dl (2.5-4.9)
[2017-06-22 06:41] LABS: CREATININE 0.65 mg/dl (0.44-1.00); POTASSIUM 4.2 mmol/L (3.5-5.1)
[2017-06-22] MEDS: METOCLOPRAMIDE 10 MG INJ IV SCH ×3 (08:15→17:39)
[2017-06-22] MEDS: PANTOPRAZOLE (EC) 40 MG TAB PO SCH (08:15)
[2017-06-22] MEDS: ARIPIPRAZOLE 10 MG TAB PO SCH (09:27)
[2017-06-22] MEDS: TOPIRAMATE SPRINKLE 25 MG CAP PO SCH ×3 (09:27→22:45)
[2017-06-22] MEDS: TOPIRAMATE 100 MG TAB PO SCH ×2 (09:27→21:00)
[2017-06-22] MEDS: CHOLECALCIFEROL 1,000 UNIT TAB PO SCH (09:27)
[2017-06-22] MEDS: NEOMYC/POLYMYX/BACIT 30 GM OINT TOP SCH ×2 (09:28→21:55)
[2017-06-22] MEDS: LEVETIRACETAM 1000 MG (PMX) 100 ML IVPB SCH ×3 (09:28→22:45)
--- NOTE | 2017-06-22 09:56 | PN ---
Date/Time of Note Date/Time of Note DATE: 06/22/17 TIME: 09:42 Assessment/Plan VTE Prophylaxis VTE Prophylaxis Intervention: SCD's Lines/Catheters IV Catheter Type (from Nrsg): PICC Line Central line still needed: Yes (for IV access ) Urinary Cath still in place: Yes Reason Cath still needed: other (indicate) (bed rest ) Assessment/Plan Assessment/Plan 51-year-old female with: 1. Right subdural hematoma, increased per repeat CT yesterday with now a 3 mm of [id number] midline shift. Status post subdural hematoma drainage POD#5 Patient's mental status seems to be at baseline this morning, she has a mildly slurred speech at baseline confirm with mother, likely secondary to make multiple medications for seizures. Seizure precautions in place. Sitter at bedside as patient has a tendency to be impulsive apparently and try to get up. Status post a few seconds seizure yesterday. Subdural drain removed yesterday by neurosurgery, Dr. Villavicencio following. Continue antiseizure medications. Ativan as needed seizures, one-to-one sitter. 2. Seizure disorder, refractory to medications apparently: Continue current medications will change back to p.o. once patient more stable from neurosurgical standpoint. Status post vagal nerve stimulator. Patient will have to follow-up with a [facility] neurology regarding adjustment of her vagal nerve stimulator to help with seizures refractory to medications. 3. Developmental delay: Close neurological monitoring given acute traumatic head injury with right subdural hematoma. Continue outpatient medications. 4. GERD: Continue Protonix 5. Chronic constipation: Continue outpatient regimen as well as patient able to take p.o. Prophylaxis: Protonix for GI prophylaxis, SCDs to lower extremity for DVT prophylaxis Disposition: Status post right subdural hematoma evacuation, drain removed this morning, neurosurgery following and will transfer to a medical surgical bed today. She will need a one-to-one sitter and ongoing seizure precautions. Subjective 24 Hr Interval Summary Free Text/Dictation Patient last small seizure was yesterday Patient stable to transfer to Med Surg today Exam/Review of Systems Vital Signs Vitals Vital Signs Date Time Temp Pulse Resp B/P Pulse Ox O2 Delivery O2 Flow Rate FiO2 06/22/17 09:00 115 30 102/62 97 06/22/17 04:00 99.8 06/20/17 22:00 Room Air 06/20/17 20:30 21 06/19/17 07:00 2.0 Intake and Output 06/21/17 06/21/17 06/22/17 15:00 23:00 07:00 Intake Total 1080 ml 1150 ml 655 ml Output Total 730 ml 1025 ml 783 ml Balance 350 ml 125 ml -128 ml Exam Constitutional: alert Respiratory: clear to auscultation, normal air movement Cardiovascular: nl pulses, regular rate and rhythm Gastrointestinal: non-tender, soft Musculoskeletal: nl extremities to inspection Extremities: normal pulses, other (no edema, clubbing or cyanosis ) Neurological: BOILING HOUSE HAND II-XII intact, nl mental status (at baseline) Results Result Diagram: 06/22/17 0430 06/22/17 0430 Results 24 hrs Laboratory Tests Test 06/22/17 04:30 White Blood Count 13.6 H Red Blood Count 2.96 L Hemoglobin 9.1 L Hematocrit 27.3 L Mean Corpuscular Volume 92.2 Mean Corpuscular Hemoglobin 30.7 Mean Corpuscular Hemoglobin Concent 33.3 Red Cell Distribution Width 11.9 Platelet Count 364 # Mean Platelet Volume 10.3 Neutrophils % 62.0 Lymphocytes % 20.0 Monocytes % 15.0 H Eosinophils % 0.8 Basophils % 0.4 Nucleated Red Blood Cells % 0.1 H Neutrophils # 8.4 H Lymphocytes # 2.7 Monocytes # 2.0 H Eosinophils # 0.1 Basophils # 0.1 Nucleated Red Blood Cells # 0.0 Sodium Level 136 Potassium Level 4.2 Chloride Level 98 Carbon Dioxide Level 24 Anion Gap 18 H Blood Urea Nitrogen 12 Creatinine 0.65 Glucose Level 116 Calcium Level 9.0 Phosphorus Level 3.7 Magnesium Level 1.9 Medications Medications Current Medications Aripiprazole (Abilify) 10 mg DAILY PO Last administered on 06/22/17 09:27; Admin Dose 10 MG; Start 06/16/17 at 09:00 Cholecalciferol (Vitamin D) 1,000 unit DAILY PO Last administered on 06/22/17 09:27; Admin Dose 1,000 UNIT; Start 06/16/17 at 09:00 Topiramate (Topamax Sprinkle) 50 mg BID PO Last administered on 06/22/17 09:27 ; Admin Dose 50 MG; Start 06/15/17 at 21:00 Topiramate (Topamax) 100 mg BID PO Last administered on 06/22/17 09:27; Admin Dose 100 MG; Start 06/15/17 at 21:00 Lorazepam (Ativan) 2 mg Q1H PRN IV seizure Last administered on 06/19/17 04:57 ; Admin Dose 2 MG; Start 06/15/17 at 20:30 Acetaminophen (Tylenol Tab) 650 mg Q4H PRN PO pain/fever Last administered on 21:02; Admin Dose 650 MG; Start 06/15/17 at 20:30 Morphine Sulfate (morphine) 2 mg Q2H PRN IV pain Last administered on 22:53; Admin Dose 2 MG; Start 06/15/17 at 20:30 Ondansetron HCl 4 mg 4 mg Q4H PRN IV nausea; Start 06/15/17 at 20:30 Potassium Chloride/Dextrose/ Sod Cl 1,000 ml @ 100 mls/hr Q10H IV Last administered on 06/21/17 20:43; Admin Dose 100 MLS/HR; Start 06/16/17 at 04:12 Levetiracetam 100 ml @ 400 mls/hr Q12 IVPB Last administered on 06/22/17 09: 28; Admin Dose 400 MLS/HR; Start 06/16/17 at 11:00 Valproate Sodium/ Sodium Chloride (Depacon/NS) 55 ml @ 55 mls/hr Q8 IVPB Last administered on 06/22/17 05:48; Admin Dose 55 MLS/HR; Start 06/16/17 at 11:00 Docusate Sodium (Colace) 100 mg DAILY PRN PO CONSTIPATION Last administered on 06/18/17 14:40; Admin Dose 100 MG; Start 06/16/17 at 10:30 Lactulose (Enulose) 20 gm BID PRN PO CONSTIPATION; Start 06/16/17 at 10:30 IV Flush (NS 10 ml) 10 ml PRN PRN IV IV PROTOCOL; Start 06/16/17 at 15:30 Labetalol HCl (Labetalol) 10 mg Q10M PRN IV ELEVATED BLOOD PRESSURE; Start 06/16 at 17:00 Hydralazine HCl (Apresoline) 10 mg Q4H PRN IV ELEVATED BLOOD PRESSURE; Start at 17:00 Neomycin/ Polymyxin/ Bacitracin (Neosporin Topical Oint) 1 applic BID TOP Last administered on 06/22/17t 09:28; Admin Dose 1 APPLIC; Start 06/18/17 at 21:00 ALEXANDER DARBY Jun 22, 2017 09:53
[2017-06-22] MEDS: ACETAMINOPHEN 325 MG TAB PO PRN (17:38)
[2017-06-22 17:57] LABS: ADD UMIC NO; UR AMORPHOUS CRYSTAL FEW /HPF (NONE SEEN); UR ASCORBIC ACID NEGATIVE (NEGATIVE); UR BILIRUBIN (Dip) NEGATIVE (NEGATIVE); UR BLOOD (Dip) NEGATIVE (NEGATIVE); UR CLARITY SLIGHTLY CLOUDY (CLEAR); UR COLOR YELLOW (YELLOW); UR GLUCOSE (Dip) NEGATIVE (NEGATIVE); UR KETONES (Dip) NEGATIVE (NEGATIVE); UR LEUKOCYTE ESTERASE (Dip) NEGATIVE Leu/ul (NEGATIVE); UR NITRITE (Dip) NEGATIVE (NEGATIVE); UR RBC 1 /HPF (0-5); UR SPECIFIC GRAVITY (Dip) 1.014 (1.003-1.030); UR TOTAL PROTEIN (Dip) NEGATIVE (NEGATIVE); UR UROBILINOGEN (Dip) 2+ mg/dL (NEGATIVE)
[2017-06-22] MEDS: LORAZEPAM 2 MG INJ IV PRN (19:27)
[2017-06-22] MEDS: D5-NS + KCL 40 MEQ 1,000 ML IV SCH (20:30)
[2017-06-23] VITALS (16 sets, daily range): BP systolic 82–111; BP diastolic 48–65; PULSE 82–105; RESP 16–20
[2017-06-23] MEDS: TOPIRAMATE 100 MG TAB PO SCH ×3 (00:36→20:43)
[2017-06-23] MEDS: D5-NS + KCL 40 MEQ 1,000 ML IV SCH ×2 (00:37→06:12)
--- NOTE | 2017-06-23 04:28 | OPR ---
DATE OF OPERATION: 06/17/2017 PREOPERATIVE DIAGNOSIS: Right acute subdural hematoma. POSTOPERATIVE DIAGNOSIS: Right acute subdural hematoma. PROCEDURE PERFORMED: 1. Right frontal craniotomy. 2. Evacuation of subdural hematoma and placement of subdural drain. SURGEON: Dylan Villavicencio MD. DOORPERSON OR LUGGAGE PORTER: None. ANESTHESIA: General endotracheal tube anesthesia. INDICATIONS: The patient is a 51-year-old developmentally delayed female who presents with a history of seizure disorder and had a seizure in the emergency room and subsequently fell, suffering a blow to the head. CT of the head demonstrated an extra-axial hyperdense collection consistent with acute subdural hematoma that enlarged on follow-up imaging. The risks, benefits, and alternatives to craniotomy for evacuation were explained to the patient's mother in detail. Informed consent having been obtained, the patient was brought to the operating room. OPERATIVE PROCEDURE: The patient was positioned supine on the operating room table after induction of general anesthesia. Her head was turned to the left. The patient had a previous craniotomy 35 or 40 years prior, and there was still evidence of the scar from her prior craniotomy, and this was clipped to better expose the incision. Again, after the patient had anesthesia induced, the scalp was prepped and draped in the usual sterile fashion after completing a formal timeout. In consultation with the preoperative CT scan along the prior skin incision that was demarcated previously, the location for the craniotomy was determined. The scalp was opened with a 10 blade, and the dissection was carried down with a periosteal elevator Bovie electrocautery to expose the calvarium. Two bur holes were placed with a high-speed drill. A circular bone flap was turned. This bone flap crossed the edge of her prior craniotomy, which had been reapproximated with wire, so both fragments of wire were, therefore, removed. The bone flap elevated with circular and approximately 4 cm in diameter. The dura was then opened in cruciate fashion with a 15-blade where we fit to the dura and tacked up with 4-0 Nylon suture, and the subdural contents were irrigated out with copious amounts of antibiotic continuous irrigation until all irrigation returned to clear, and there was no evidence of any residual blood. No direct site of bleeding was identified. A drainage catheter was left in the subdural space, tunneling the skin, secured with a drain stitch. The dura was re-approximated with 4-0 Nylon suture. The bone flap was replaced with mini-plates. The scalp was closed in layers with 2- 0 Vicryl, then used to close the galea and oralia on the skin. The patient tolerated the procedure well, and there were no complications. ESTIMATED BLOOD LOSS: One hundred mL. Dictated By: Dylan Villavicencio MD /bailey/kerry /Document#: [id number]
[2017-06-23] MEDS: VALPROATE INJ 500 MG in SOD CHLORIDE 0.9% 50 ML IVPB SCH (06:33)
--- NOTE | 2017-06-23 07:33 | RADRPT ---
PROCEDURE: XR Chest. CLINICAL INDICATION: chest pain TECHNIQUE: PA and Lateral views of the chest were obtained. COMPARISON: Chest x-ray 06/16/2017 FINDINGS: Left chest wall implanted vagal nerve stimulator device with leads partially imaged in the left lowe r neck appear grossly stable in positions. The right PICC line has been retracted and the tip now pr ojects over the proximal to mid superior vena cava. The cardiac silhouette remains partially obscured by overlying stimulator device, but is grossly unc hanged. There are persistent ill-defined opacities within the visualized left lung base (partially obscured by overlying stimulator device) which may represent a small pleural effusion, atelectasis, and / or consolidation. The right lung remains clear. No pneumothorax is identified. There are mild degenerative changes of the visualized spine per IMPRESSION: 1. Interval retraction of right PICC line with tip not terminating in the proximal to mid superior v talia cava. 2. Persistent ill-defined opacities at the left lung base (partially obscured by overlying stimulat or device), with most likely differential being a small left pleural effusion, atelectasis and / or consolidation. RPTAT: EE Physician Bere Date Time Electronically viewed and signed by Physician Bere on 06/23/2017 07:33 /
[2017-06-23] MEDS: PANTOPRAZOLE (EC) 40 MG TAB PO SCH (08:08)
[2017-06-23] MEDS: METOCLOPRAMIDE 10 MG INJ IV SCH ×3 (08:08→16:50)
[2017-06-23] MEDS: TOPIRAMATE SPRINKLE 25 MG CAP PO SCH ×2 (08:08→20:43)
[2017-06-23] MEDS: ARIPIPRAZOLE 10 MG TAB PO SCH (08:09)
[2017-06-23] MEDS: ACETAMINOPHEN 325 MG TAB PO PRN ×2 (08:09→16:50)
[2017-06-23] MEDS: CHOLECALCIFEROL 1,000 UNIT TAB PO SCH (08:09)
[2017-06-23] MEDS: DOCUSATE SODIUM 100 MG CAP PO PRN (08:09)
[2017-06-23] MEDS: NEOMYC/POLYMYX/BACIT 30 GM OINT TOP SCH ×2 (08:10→21:25)
[2017-06-23] MEDS: LEVETIRACETAM 1000 MG (PMX) 100 ML IVPB SCH (09:33)
--- NOTE | 2017-06-23 10:51 | CONS ---
Date/Time of Note Date/Time of Note DATE: 06/23/17 TIME: 10:44 Assessment/Plan Assessment/Plan Chief Complaint/Hosp Course 51 yo female with refractory epilepsy on 3 AED with VNS stimulator admitted with seizure and fall with SDH s/p evacuation POD#6 with breakthrough seizures and fevers undergoing infectious work up. -recommend increase dose Keppra to 1500 mg q12h -increase VPA to 750 mg q8h will recheck level -continue Topamax 150 mg BID, if further seizures will increase to 200 mg BID -seizure precautions -ativan prn 0.1 mg/kg for seizure activity max dose 4 mg at once, max dose 10 mg in 24 hours will follow Problems: Consultation Date/Type/Reason Admit Date/Time Jun 15, 2017 at 20:20 Date of Consultation: Jun 23, 2017 Type of Consultation: Neurology Reason for Consultation seizures Referring Provider: ALEXANDER DARBY Hx of Present Illness 51 year old female with history of refractory seizure d/o with vagal nerve stimulator admitted to ER on 06/15 suffered a fall with head trauma with acute subdural hematoma right frontal lobe, left parietal with 3 mm right to left midline shift requiring neurosurgical intervention POD#6 s/p drain removal with breakthrough seizures and fevers undergoing infectious work up. Current seizure medications listed prior to admission: VPA 500 mg q8h, Keppra 1 g BID, Topamax 150 mg BID. Last night reportedly had eye rolling upwards given ativan with resolution, remains drowsy unable to communicate or follow commands. Social History Smoking Status: Never smoker Exam/Review of Systems Vital Signs Vitals Vital Signs Date Time Temp Pulse Resp B/P Pulse Ox O2 Delivery O2 Flow Rate FiO2 06/23/17 08:10 105 06/23/17 07:20 101.0 20 111/56 98 06/20/17 22:00 Room Air 06/20/17 20:30 21 06/19/17 07:00 2.0 Intake and Output 06/22/17 06/22/17 06/23/17 15:00 23:00 07:00 Intake Total 700 ml 695 ml 250 ml Output Total 850 ml 450 ml 1200 ml Balance -150 ml 245 ml -950 ml Exam drowsy difficult to arouse unable to follow commands CN: gaze orthophoric JAH, Dolls intact no sig. facial asymmetry Motor: poor cooperation, purposeful movement in plane of bed in all extremities w/d appropriately in all extremities limited exam Results Result Diagram: 06/22/17 0430 06/22/17 0430 Results 24 hrs Laboratory Tests Test 06/22/17 16:30 Urine Color YELLOW Urine Clarity SLIGHTLY CLOUDY A Urine pH 7.0 Urine Specific [place] 1.014 Urine Ketones NEGATIVE Urine Nitrite NEGATIVE Urine Bilirubin NEGATIVE Urine Urobilinogen 2+ H Urine Leukocyte Esterase NEGATIVE Urine Microscopic RBC 1 Urine Microscopic WBC 2 Urine Amorphous Crystals FEW A Urine Hemoglobin NEGATIVE Urine Glucose NEGATIVE Urine Total Protein NEGATIVE Medications Medications Current Medications Aripiprazole (Abilify) 10 mg DAILY PO Last administered on 06/23/17 08:09; Admin Dose 10 MG; Start 06/16/17 at 09:00 Cholecalciferol (Vitamin D) 1,000 unit DAILY PO Last administered on 06/23/17 08:09; Admin Dose 1,000 UNIT; Start 06/16/17 at 09:00 Topiramate (Topamax Sprinkle) 50 mg BID PO Last administered on 06/23/17 08:08 ; Admin Dose 50 MG; Start 06/15/17 at 21:00 Topiramate (Topamax) 100 mg BID PO Last administered on 06/23/17 08:09; Admin Dose 100 MG; Start 06/15/17 at 21:00 Lorazepam (Ativan) 2 mg Q1H PRN IV seizure Last administered on 06/22/17 19:27 ; Admin Dose 2 MG; Start 06/15/17 at 20:30 Acetaminophen (Tylenol Tab) 650 mg Q4H PRN PO pain/fever Last administered on 08:09; Admin Dose 650 MG; Start 06/15/17 at 20:30 Morphine Sulfate (morphine) 2 mg Q2H PRN IV pain Last administered on 22:53; Admin Dose 2 MG; Start 06/15/17 at 20:30 Ondansetron HCl 4 mg 4 mg Q4H PRN IV nausea; Start 06/15/17 at 20:30 Potassium Chloride/Dextrose/ Sod Cl (D5-NS + KCl 40 Meq) 1,000 ml @ 100 mls/hr Q10H IV Last administered on 06/23/17 00:37; Admin Dose 100 MLS/HR; Start 06/16 at 04:12 Docusate Sodium (Colace) 100 mg DAILY PRN PO CONSTIPATION Last administered on 06/23/17 08:09; Admin Dose 100 MG; Start 06/16/17 at 10:30 Lactulose (Enulose) 20 gm BID PRN PO CONSTIPATION; Start 06/16/17 at 10:30 IV Flush (NS 10 ml) 10 ml PRN PRN IV IV PROTOCOL; Start 06/16/17 at 15:30 Labetalol HCl (Labetalol) 10 mg Q10M PRN IV ELEVATED BLOOD PRESSURE; Start 06/16 at 17:00 Hydralazine HCl (Apresoline) 10 mg Q4H PRN IV ELEVATED BLOOD PRESSURE; Start at 17:00 Neomycin/ Polymyxin/ Bacitracin (Neosporin Topical Oint) 1 applic BID TOP Last administered on 06/23/17 08:10; Admin Dose 1 APPLIC; Start 06/18/17 at 21:00 Acetaminophen 650 mg 650 mg Q6H PRN [place] FEVER; Start 06/22/17 at 16:30 Valproate Sodium 750 mg/Sodium Chloride 57.5 ml @ 55 mls/hr Q8 IVPB ; Start at 14:00; Status UNV Levetiracetam (Keppra 1,500mg/ 100ml (Pmx)) 100 ml @ 400 mls/hr Q12 IVPB ; Start 06/23/17 at 21:00; Status UNV ADAM URENA MD Jun 23, 2017 10:51
[2017-06-23 11:00] LABS: BASOPHILS % 0.4 % (0.0-2.0); EOSINOPHILS # 0.1 10^3/ul (0.0-0.5); EOSINOPHILS % 0.8 % (0.0-7.0); HEMOGLOBIN 7.6 g/dl (12.0-16.0); LYMPHOCYTES # 2.1 10^3/ul (0.8-2.9); MEAN CORPUSCULAR HEMOGLOBIN 30.8 pg (29.0-33.0); MEAN CORPUSCULAR VOLUME 93.1 fl (82.0-101.0); MEAN PLATELET VOLUME 9.7 fl (7.4-10.4); MONOCYTE # 1.5 10^3/ul (0.3-0.9); MONOCYTES % 14.2 % (0.0-11.0); NUCLEATED RED BLOOD CELLS% 0.2 /100WBC (0.0-0.0); PLATELET COUNT 377 10^3/UL (140-415); RED BLOOD COUNT 2.47 10^6/ul (4.20-5.40); WHITE BLOOD COUNT 10.3 10^3/ul (4.8-10.8)
[2017-06-23 11:26] LABS: CALCIUM 7.8 mg/dl (8.4-10.2); CREATININE 0.67 mg/dl (0.44-1.00); POTASSIUM 5.7 mmol/L (3.5-5.1)
[2017-06-23] MEDS ORDERED: SOD CHLORIDE 0.9% 250 ML IV* ONE (12:30)
[2017-06-23] MEDS: DEXTROSE 5%-0.9% NACL 1,000 ML IV SCH (12:46)
[2017-06-23] MEDS ORDERED: NA POLYST SULFON 15 GM/60 ML BTL PO ONE (13:00)
[2017-06-23] MEDS: VALPROATE INJ 750 MG in SOD CHLORIDE 0.9% 50 ML IVPB SCH ×2 (13:26→22:13)
--- NOTE | 2017-06-23 16:39 | PN ---
Date/Time of Note Date/Time of Note DATE: 06/23/17 TIME: 16:30 Assessment/Plan VTE Prophylaxis VTE Prophylaxis Intervention: SCD's Assessment/Plan Chief Complaint/Hosp Course 1. Right subdural hematoma, increased per repeat CT with a 3 mm of right-to- left midline shift. Status post subdural hematoma drainage now x 2 with repeat surgery yesterday Patient's mental status is poor this morning she is nonverbal, she appears to have a mildly slurred speech at baseline, likely secondary to make multiple medications for seizures. Seizure precautions in place. Sitter at bedside as patient has a tendency to be impulsive apparently and try to get up. Status post a few seconds seizure 4 days ago Patient had a new subdural drain placed yesterday by neurosurgery, Dr. Villavicencio following. Continue antiseizure medications. Ativan as needed seizures, one-to-one sitter. 2. Seizure disorder, refractory to medications apparently: Continue current medications will change back to p.o. once patient more stable from neurosurgical standpoint. Status post vagal nerve stimulator. Patient will have to follow-up with a [facility] neurology regarding adjustment of her vagal nerve stimulator to help with seizures refractory to medications. 3. Developmental delay: Close neurological monitoring given acute traumatic head injury with right subdural hematoma. Continue outpatient medications. 4. GERD: Continue Protonix 5. Chronic constipation: Continue outpatient regimen as well as patient able to take p.o. 6. Mild hyperkalemia DC potassium in IV fluids, Kayexalate 1 Monitor BMP in a.m. 7. Anemia Transfuse 1 unit of packed red blood cells 8. Hypotension IV fluids Lactate is normal, no evidence of sepsis 9. Hyperglycemia-likely reactive No history of diabetes and prior sugars were normal during this hospitalization Prophylaxis: Protonix for GI prophylaxis, SCDs to lower extremity for DVT prophylaxis Disposition: She will need a one-to-one sitter and ongoing seizure precautions. Problems: Subjective 24 Hr Interval Summary Subjective hx not possible: pt non-verbal Exam/Review of Systems Vital Signs Vitals Vital Signs Date Time Temp Pulse Resp B/P Pulse Ox O2 Delivery O2 Flow Rate FiO2 06/23/17 15:50 99.1 92 20 107/55 100 06/20/17 22:00 Room Air 06/20/17 20:30 21 06/19/17 07:00 2.0 Intake and Output 806/22/17 06/23/17 15:00 23:00 07:00 Intake Total 700 ml 695 ml 250 ml Output Total 850 ml 450 ml 1200 ml Balance -150 ml 245 ml -950 ml Exam Constitutional: non-verbal Respiratory: clear to auscultation Cardiovascular: regular rate and rhythm Gastrointestinal: soft, No distended Musculoskeletal: nl extremities to inspection Results Result Diagram: 06/23/17 1020 06/23/17 1015 Results 24 hrs Laboratory Tests Test 06/23/17 10:15 06/23/17 10:20 06/23/17 14:02 Sodium Level 138 Potassium Level 5.7 H Chloride Level 105 Carbon Dioxide Level 24 Anion Gap 15 Blood Urea Nitrogen 16 Creatinine 0.67 Glucose Level 311 #H Calcium Level 7.8 L Magnesium Level 1.7 White Blood Count 10.3 # Red Blood Count 2.47 L Hemoglobin 7.6 L Hematocrit 23.0 L Mean Corpuscular Volume 93.1 Mean Corpuscular Hemoglobin 30.8 Mean Corpuscular Hemoglobin Concent 33.0 Red Cell Distribution Width 12.0 Platelet Count 377 Mean Platelet Volume 9.7 Neutrophils % 62.0 Lymphocytes % 20.0 Monocytes % 14.2 H Eosinophils % 0.8 Basophils % 0.4 Nucleated Red Blood Cells % 0.2 H Neutrophils # (Manual) 6.4 Lymphocytes # 2.1 Monocytes # 1.5 H Eosinophils # 0.1 Basophils # 0.0 Nucleated Red Blood Cells # 0.0 Lactic Acid Level 1.6 Medications Medications Current Medications Aripiprazole (Abilify) 10 mg DAILY PO Last administered on 06/23/17 08:09; Admin Dose 10 MG; Start 06/16/17 at 09:00 Cholecalciferol (Vitamin D) 1,000 unit DAILY PO Last administered on 06/23/17 08:09; Admin Dose 1,000 UNIT; Start 06/16/17 at 09:00 Topiramate (Topamax Sprinkle) 50 mg BID PO Last administered on 06/23/17 08:08 ; Admin Dose 50 MG; Start 06/15/17 at 21:00 Topiramate (Topamax) 100 mg BID PO Last administered on 06/23/17 08:09; Admin Dose 100 MG; Start 06/15/17 at 21:00 Lorazepam (Ativan) 2 mg Q1H PRN IV seizure Last administered on 06/22/17 19:27 ; Admin Dose 2 MG; Start 06/15/17 at 20:30 Acetaminophen (Tylenol Tab) 650 mg Q4H PRN PO pain/fever Last administered on 08:09; Admin Dose 650 MG; Start 06/15/17 at 20:30 Morphine Sulfate (morphine) 2 mg Q2H PRN IV pain Last administered on 22:53; Admin Dose 2 MG; Start 06/15/17 at 20:30 Ondansetron HCl (Zofran Inj) 4 mg Q4H PRN IV nausea; Start 06/15/17 at 20:30 Docusate Sodium (Colace) 100 mg DAILY PRN PO CONSTIPATION Last administered on 06/23/17 08:09; Admin Dose 100 MG; Start 06/16/17 at 10:30 Lactulose (Enulose) 20 gm BID PRN PO CONSTIPATION; Start 06/16/17 at 10:30 IV Flush (NS 10 ml) 10 ml PRN PRN IV IV PROTOCOL; Start 06/16/17 at 15:30 Labetalol HCl (Labetalol) 10 mg Q10M PRN IV ELEVATED BLOOD PRESSURE; Start 06/16 at 17:00 Hydralazine HCl (Apresoline) 10 mg Q4H PRN IV ELEVATED BLOOD PRESSURE; Start at 17:00 Neomycin/ Polymyxin/ Bacitracin (Neosporin Topical Oint) 1 applic BID TOP Last administered on 06/23/17 08:10; Admin Dose 1 APPLIC; Start 06/18/17 at 21:00 Acetaminophen 650 mg 650 mg Q6H PRN [place] FEVER; Start 06/22/17 at 16:30 Valproate Sodium 750 mg/Sodium Chloride 57.5 ml @ 55 mls/hr Q8 IVPB Last administered on 06/23/17 13:26; Admin Dose 55 MLS/HR; Start 06/23/17 at 14:00 Levetiracetam 100 ml @ 400 mls/hr Q12 IVPB ; Start 06/23/17 at 21:00 Dextrose/Sodium Chloride (D5-NS) 1,000 ml @ 100 mls/hr Q10H IV Last administered on 06/23/17 12:46; Admin Dose 100 MLS/HR; Start 06/23/17 at 12:30 MEHNAZ CHACON Jun 23, 2017 16:39
[2017-06-23] MEDS: LEVETIRACETAM 1500 MG (PMX) 100 ML IVPB SCH (21:25)
[2017-06-24] VITALS (10 sets, daily range): BP systolic 100–135; BP diastolic 52–85; PULSE 74–100; RESP 16–20
[2017-06-24] MEDS: DEXTROSE 5%-0.9% NACL 1,000 ML IV SCH ×3 (05:48→18:16)
[2017-06-24] MEDS: VALPROATE INJ 750 MG in SOD CHLORIDE 0.9% 50 ML IVPB SCH ×3 (05:48→21:32)
[2017-06-24 07:21] LABS: ABNORMAL IP MESSAGE 1; BASOPHIL # 0.1 10^3/ul (0.0-0.1); BASOPHILS % 0.5 % (0.0-2.0); EOSINOPHILS # 0.3 10^3/ul (0.0-0.5); HEMATOCRIT 28.6 % (37.0-47.0); HEMOGLOBIN 9.7 g/dl (12.0-16.0); LYMPHOCYTES # 2.6 10^3/ul (0.8-2.9); LYMPHOCYTES % 24.1 % (15.0-51.0); MEAN CORPUSCULAR HGB CONC 33.9 g/dl (32.0-37.0); MEAN CORPUSCULAR VOLUME 91.4 fl (82.0-101.0); MEAN PLATELET VOLUME 10.1 fl (7.4-10.4); MONOCYTE # 1.8 10^3/ul (0.3-0.9); MONOCYTES % 16.9 % (0.0-11.0); NEUTROPHILS % 51.9 % (39.0-77.0); NUCLEATED RED BLOOD CELLS # 0.1 10^3/ul (0.0-0.0); NUCLEATED RED BLOOD CELLS% 0.6 /100WBC (0.0-0.0); PLATELET COUNT 395 10^3/UL (140-415); RED BLOOD COUNT 3.13 10^6/ul (4.20-5.40); RED CELL DISTRIBUTION WIDTH 14.7 % (11.5-14.5); WHITE BLOOD COUNT 10.7 10^3/ul (4.8-10.8)
[2017-06-24 07:27] LABS: POSITIVE DIFF @See below
[2017-06-24 07:33] LABS: CALCIUM 8.4 mg/dl (8.4-10.2); CREATININE 0.71 mg/dl (0.44-1.00); MAGNESIUM 2.1 mg/dl (1.7-2.5); POTASSIUM 3.4 mmol/L (3.5-5.1)
[2017-06-24] MEDS: ARIPIPRAZOLE 10 MG TAB PO SCH (09:00)
[2017-06-24] MEDS: PANTOPRAZOLE (EC) 40 MG TAB PO SCH (09:00)
[2017-06-24] MEDS: METOCLOPRAMIDE 10 MG INJ IV SCH ×3 (09:00→18:17)
[2017-06-24] MEDS: LEVETIRACETAM 1500 MG (PMX) 100 ML IVPB SCH ×2 (09:00→20:33)
[2017-06-24] MEDS: TOPIRAMATE 100 MG TAB PO SCH ×2 (09:00→20:34)
[2017-06-24] MEDS: TOPIRAMATE SPRINKLE 25 MG CAP PO SCH ×2 (09:00→20:33)
[2017-06-24] MEDS: CHOLECALCIFEROL 1,000 UNIT TAB PO SCH (09:00)
[2017-06-24] MEDS: NEOMYC/POLYMYX/BACIT 30 GM OINT TOP SCH ×2 (09:01→20:34)
--- NOTE | 2017-06-24 11:28 | PN ---
Date/Time of Note Date/Time of Note DATE: 06/24/17 TIME: 11:17 Assessment/Plan VTE Prophylaxis VTE Prophylaxis Intervention: SCD's Lines/Catheters IV Catheter Type (from Nrsg): PICC Line Central line still needed: Yes (For IV access) Urinary Cath still in place: Yes Reason Cath still needed: other (indicate) (On bed rest) Assessment/Plan Assessment/Plan 1. Right subdural hematoma, increased per repeat CT with a 3 mm of right-to- left midline shift. Status post subdural hematoma drainage now x 2 with repeat surgery yesterday Patient's mental status is poor this morning she is nonverbal, she appears to have a mildly slurred speech at baseline, likely secondary to make multiple medications for seizures. Seizure precautions in place. Sitter at bedside as patient has a tendency to be impulsive apparently and try to get up. Also likely still having short episodes of seizures or subclinical seizures. Continue antiseizure medications. Ativan as needed seizures, one-to-one sitter. 2. Seizure disorder, refractory to medications apparently: Appreciate recommendations from neurology, anti-seizure medication titrated up, again we will need a transfer to a facility with capability for continuous EEG, further management of her seizures and adjustment of her vagal nerve stimulator, ? [facility]. 3. Developmental delay: Close neurological monitoring given acute traumatic head injury with right subdural hematoma. Continue outpatient medications. 4. GERD: Continue Protonix 5. Chronic constipation: Continue outpatient regimen as well as patient able to take p.o. 6. Anemia, status post 1 unit of packed red blood cell, with hemoglobin at 9.2 today, will make sure to repeat CBC comes back abnormal and should be drawn peripherally next time. Patient remained stable 7. Fevers, low-grade elevated temperature, resolved for now, likely secondary to a recent subdural hematoma/bleeding, all cultures negative, white blood cell count within normal for the past 2 days. Lactic acid within normal, Prophylaxis: Protonix for GI prophylaxis, SCDs to lower extremity for DVT prophylaxis Disposition: Discussed with neurology, patient will need continuous EEG monitoring and titration of her medication, she also has a vagal nerve stimulator that may need to be adjusted in the proper facility/setting, I will discuss with her [facility] [place], patient needs to be transferred to a facility with that capability, her vagal nerve stimulator was placed at [facility] and has been adjusted monthly there. Subjective 24 Hr Interval Summary Free Text/Dictation Patient less lethargic, on higher doses of antiseizure medication, low-grade elevated temperature no fevers, white blood cell count within normal Appreciate recommendations from neurology, will request for transfer to facility with continuous EEG monitoring in order to adjust her anti-seizure medication appropriately and also further monitoring of her seizures Exam/Review of Systems Vital Signs Vitals Vital Signs Date Time Temp Pulse Resp B/P Pulse Ox O2 Delivery O2 Flow Rate FiO2 06/24/17 08:23 79 06/24/17 08:18 100.0 20 119/57 100 06/20/17 22:00 Room Air 06/20/17 20:30 21 Intake and Output 06/23/17 06/23/17 06/24/17 15:00 23:00 07:00 Intake Total 157.5 ml 950 ml 1415.0 ml Output Total 700 ml 1000 ml Balance 157.5 ml 250 ml 415.0 ml Exam Constitutional: alert (More so today), other (Minimally verbal) Respiratory: clear to auscultation, normal air movement Cardiovascular: nl pulses, regular rate and rhythm Gastrointestinal: non-tender, soft Musculoskeletal: nl extremities to inspection Extremities: normal pulses, other (No edema, clubbing or cyanosis) Neurological: DATA COMPILER II-XII intact, nl mental status, nl speech, nl strength Results Result Diagram: 06/24/17 0345 06/24/17 0345 Results 24 hrs Laboratory Tests Test 06/23/17 14:02 06/24/17 03:45 Lactic Acid Level 1.6 White Blood Count 10.7 Red Blood Count 3.13 #L Hemoglobin 9.7 #L Hematocrit 28.6 #L Mean Corpuscular Volume 91.4 Mean Corpuscular Hemoglobin 31.0 Mean Corpuscular Hemoglobin Concent 33.9 Red Cell Distribution Width 14.7 #H Platelet Count 395 Mean Platelet Volume 10.1 Neutrophils % 51.9 Lymphocytes % 24.1 Monocytes % 16.9 H Eosinophils % 3.0 Basophils % 0.5 Nucleated Red Blood Cells % 0.6 H Neutrophils # (Manual) 5.6 Lymphocytes # 2.6 Monocytes # 1.8 H Eosinophils # 0.3 Basophils # 0.1 Nucleated Red Blood Cells # 0.1 H Sodium Level 138 Potassium Level 3.4 #L Chloride Level 106 Carbon Dioxide Level 24 Anion Gap 11 Blood Urea Nitrogen 16 Creatinine 0.71 Glucose Level 111 # Calcium Level 8.4 Magnesium Level 2.1 Valproic Acid (Depakene) Level 68 Medications Medications Current Medications Aripiprazole (Abilify) 10 mg DAILY PO Last administered on 06/24/17 09:00; Admin Dose 10 MG; Start 06/16/17 at 09:00 Cholecalciferol (Vitamin D) 1,000 unit DAILY PO Last administered on 06/24/17 09:00; Admin Dose 1,000 UNIT; Start 06/16/17 at 09:00 Topiramate (Topamax Sprinkle) 50 mg BID PO Last administered on 06/24/17 09:00 ; Admin Dose 50 MG; Start 06/15/17 at 21:00 Topiramate (Topamax) 100 mg BID PO Last administered on 06/24/17 09:00; Admin Dose 100 MG; Start 06/15/17 at 21:00 Lorazepam (Ativan) 2 mg Q1H PRN IV seizure Last administered on 06/22/17 19:27 ; Admin Dose 2 MG; Start 06/15/17 at 20:30 Acetaminophen (Tylenol Tab) 650 mg Q4H PRN PO pain/fever Last administered on 16:50; Admin Dose 650 MG; Start 06/15/17 at 20:30 Morphine Sulfate (morphine) 2 mg Q2H PRN IV pain Last administered on 22:53; Admin Dose 2 MG; Start 06/15/17 at 20:30 Ondansetron HCl (Zofran Inj) 4 mg Q4H PRN IV nausea; Start 06/15/17 at 20:30 Docusate Sodium (Colace) 100 mg DAILY PRN PO CONSTIPATION Last administered on 06/23/17 08:09; Admin Dose 100 MG; Start 06/16/17 at 10:30 Lactulose (Enulose) 20 gm BID PRN PO CONSTIPATION; Start 06/16/17 at 10:30 IV Flush (NS 10 ml) 10 ml PRN PRN IV IV PROTOCOL; Start 06/16/17 at 15:30 Labetalol HCl (Labetalol) 10 mg Q10M PRN IV ELEVATED BLOOD PRESSURE; Start 06/16 at 17:00 Hydralazine HCl (Apresoline) 10 mg Q4H PRN IV ELEVATED BLOOD PRESSURE; Start at 17:00 Neomycin/ Polymyxin/ Bacitracin (Neosporin Topical Oint) 1 applic BID TOP Last administered on 06/24/17 09:01; Admin Dose 1 APPLIC; Start 06/18/17 at 21:00 Acetaminophen 650 mg 650 mg Q6H PRN [place] FEVER; Start 06/22/17 at 16:30 Valproate Sodium 750 mg/Sodium Chloride 57.5 ml @ 55 mls/hr Q8 IVPB Last administered on 06/24/17 05:48; Admin Dose 55 MLS/HR; Start 06/23/17 at 14:00 Levetiracetam 100 ml @ 400 mls/hr Q12 IVPB Last administered on 06/24/17 09: 00; Admin Dose 400 MLS/HR; Start 06/23/17 at 21:00 Dextrose/Sodium Chloride (D5-NS) 1,000 ml @ 100 mls/hr Q10H IV Last administered on 06/24/17 05:48; Admin Dose 100 MLS/HR; Start 06/23/17 at 12:30 ALEXANDER DARBY Jun 24, 2017 11:27
[2017-06-24] MEDS ORDERED: POTASSIUM CHLORIDE 20 MEQ POWDER FOR ORAL SOLN PO ONE (11:30)
[2017-06-24] MEDS: ARTIFICIAL TEARS 15 ML OPH BOTH EYES SCH ×2 (17:00→21:00)
--- NOTE | 2017-06-24 18:10 | CONS ---
Date/Time of Note Date/Time of Note DATE: 06/24/17 TIME: 18:09 Consult Date/Type/Reason Admit Date/Time Jun 15, 2017 at 20:20 Initial Consult Date 06/23/17 Type of Consultation: Neurology Reason for Consultation seizures Ordering Provider: ALEXANDER DARBY Subjective encephalopathic no further eye rolling episodes per nurse Objective Vital Signs Date Time Temp Pulse Resp B/P Pulse Ox O2 Delivery O2 Flow Rate FiO2 06/24/17 16:36 102.0 93 20 101/52 100 06/20/17 22:00 Room Air 06/20/17 20:30 21 Intake and Output 06/23/17 06/23/17 06/24/17 15:00 23:00 07:00 Intake Total 157.5 ml 950 ml 1415.0 ml Output Total 700 ml 1000 ml Balance 157.5 ml 250 ml 415.0 ml Exam drowsy difficult to arouse unable to follow commands CN: gaze orthophoric JAH, Dolls intact no sig. facial asymmetry Motor: poor cooperation, purposeful movement in plane of bed in all extremities w/d appropriately in all extremities limited exam Results/Medications Result Diagram: 06/24/17 0345 06/24/17 0345 Results 24 hrs Laboratory Tests Test 06/24/17 03:45 White Blood Count 10.7 Red Blood Count 3.13 #L Hemoglobin 9.7 #L Hematocrit 28.6 #L Mean Corpuscular Volume 91.4 Mean Corpuscular Hemoglobin 31.0 Mean Corpuscular Hemoglobin Concent 33.9 Red Cell Distribution Width 14.7 #H Platelet Count 395 Mean Platelet Volume 10.1 Neutrophils % 51.9 Lymphocytes % 24.1 Monocytes % 16.9 H Eosinophils % 3.0 Basophils % 0.5 Nucleated Red Blood Cells % 0.6 H Neutrophils # (Manual) 5.6 Lymphocytes # 2.6 Monocytes # 1.8 H Eosinophils # 0.3 Basophils # 0.1 Nucleated Red Blood Cells # 0.1 H Sodium Level 138 Potassium Level 3.4 #L Chloride Level 106 Carbon Dioxide Level 24 Anion Gap 11 Blood Urea Nitrogen 16 Creatinine 0.71 Glucose Level 111 # Calcium Level 8.4 Magnesium Level 2.1 Valproic Acid (Depakene) Level 68 Medications Current Medications Aripiprazole (Abilify) 10 mg DAILY PO Last administered on 06/24/17t 09:00; Admin Dose 10 MG; Start 06/16/17 at 09:00 Cholecalciferol (Vitamin D) 1,000 unit DAILY PO Last administered on 06/24/17 09:00; Admin Dose 1,000 UNIT; Start 06/16/17 at 09:00 Topiramate (Topamax Sprinkle) 50 mg BID PO Last administered on 06/24/17 09:00 ; Admin Dose 50 MG; Start 06/15/17 at 21:00 Topiramate (Topamax) 100 mg BID PO Last administered on 06/24/17 09:00; Admin Dose 100 MG; Start 06/15/17 at 21:00 Lorazepam (Ativan) 2 mg Q1H PRN IV seizure Last administered on 06/22/17 19:27 ; Admin Dose 2 MG; Start 06/15/17 at 20:30 Acetaminophen (Tylenol Tab) 650 mg Q4H PRN PO pain/fever Last administered on 16:50; Admin Dose 650 MG; Start 06/15/17 at 20:30 Morphine Sulfate (morphine) 2 mg Q2H PRN IV pain Last administered on 22:53; Admin Dose 2 MG; Start 06/15/17 at 20:30 Ondansetron HCl (Zofran Inj) 4 mg Q4H PRN IV nausea; Start 06/15/17 at 20:30 Docusate Sodium (Colace) 100 mg DAILY PRN PO CONSTIPATION Last administered on 06/23/17 08:09; Admin Dose 100 MG; Start 06/16/17 at 10:30 Lactulose (Enulose) 20 gm BID PRN PO CONSTIPATION; Start 06/16/17 at 10:30 IV Flush (NS 10 ml) 10 ml PRN PRN IV IV PROTOCOL; Start 06/16/17 at 15:30 Labetalol HCl (Labetalol) 10 mg Q10M PRN IV ELEVATED BLOOD PRESSURE; Start 06/16 at 17:00 Hydralazine HCl (Apresoline) 10 mg Q4H PRN IV ELEVATED BLOOD PRESSURE; Start at 17:00 Neomycin/ Polymyxin/ Bacitracin (Neosporin Topical Oint) 1 applic BID TOP Last administered on 06/24/17 09:01; Admin Dose 1 APPLIC; Start 06/18/17 at 21:00 Acetaminophen 650 mg 650 mg Q6H PRN [place] FEVER; Start 06/22/17 at 16:30 Valproate Sodium 750 mg/Sodium Chloride 57.5 ml @ 55 mls/hr Q8 IVPB Last administered on 06/24/17 14:08; Admin Dose 55 MLS/HR; Start 06/23/17 at 14:00 Levetiracetam 100 ml @ 400 mls/hr Q12 IVPB Last administered on 06/24/17 09: 00; Admin Dose 400 MLS/HR; Start 06/23/17 at 21:00 Dextrose/Sodium Chloride (D5-NS) 1,000 ml @ 100 mls/hr Q10H IV Last administered on 06/24/17 05:48; Admin Dose 100 MLS/HR; Start 06/23/17 at 12:30 Eye Lubricant (Artificial Tears Oph) 2 drop QID BOTH EYES ; Start 06/24/17 at 17 :00 Assessment/Plan Chief Complaint/Hosp Course 51 yo female with 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 -c/w Keppra 1500 mg q12h -c/w VPA 750 mg q8h -continue Topamax 150 mg BID, if further seizures will increase to 200 mg BID -seizure precautions -ativan prn 0.1 mg/kg for seizure activity max dose 4 mg at once, max dose 10 mg in 24 hours would benefit to transfer for 24 hour EEG monitoring and higher level of care Problems: ADMA URENA MD Jun 24, 2017 18:10
[2017-06-24] MEDS: ACETAMINOPHEN 325 MG TAB PO PRN (20:34)
[2017-06-25] VITALS (11 sets, daily range): BP systolic 96–135; BP diastolic 51–63; PULSE 72–109; RESP 18–20
[2017-06-25] MEDS: DEXTROSE 5%-0.9% NACL 1,000 ML IV SCH ×3 (05:32→20:38)
[2017-06-25] MEDS: VALPROATE INJ 750 MG in SOD CHLORIDE 0.9% 50 ML IVPB SCH ×3 (06:23→22:53)
[2017-06-25] MEDS: METOCLOPRAMIDE 10 MG INJ IV SCH ×3 (06:25→16:52)
[2017-06-25] MEDS: PANTOPRAZOLE (EC) 40 MG TAB PO SCH (06:25)
[2017-06-25 07:03] LABS: BASOPHILS % 0.4 % (0.0-2.0); EOSINOPHILS # 0.2 10^3/ul (0.0-0.5); EOSINOPHILS % 1.9 % (0.0-7.0); HEMATOCRIT 28.2 % (37.0-47.0); HEMOGLOBIN 9.5 g/dl (12.0-16.0); LYMPHOCYTES # 2.5 10^3/ul (0.8-2.9); LYMPHOCYTES % 26.9 % (15.0-51.0); MEAN CORPUSCULAR HGB CONC 33.7 g/dl (32.0-37.0); MEAN CORPUSCULAR VOLUME 92.2 fl (82.0-101.0); MEAN PLATELET VOLUME 9.7 fl (7.4-10.4); MONOCYTE # 1.5 10^3/ul (0.3-0.9); MONOCYTES % 15.6 % (0.0-11.0); NEUTROPHILS % 52.2 % (39.0-77.0); NUCLEATED RED BLOOD CELLS% 0.2 /100WBC (0.0-0.0); PLATELET COUNT 466 10^3/UL (140-415); RED BLOOD COUNT 3.06 10^6/ul (4.20-5.40); RED CELL DISTRIBUTION WIDTH 13.8 % (11.5-14.5); WHITE BLOOD COUNT 9.4 10^3/ul (4.8-10.8)
[2017-06-25 07:23] LABS: PHOSPHORUS 3.9 mg/dl (2.5-4.9)
[2017-06-25 07:25] LABS: CALCIUM 8.6 mg/dl (8.4-10.2); CREATININE 0.66 mg/dl (0.44-1.00); POTASSIUM 3.5 mmol/L (3.5-5.1)
[2017-06-25] MEDS: ARIPIPRAZOLE 10 MG TAB PO SCH (08:55)
[2017-06-25] MEDS: TOPIRAMATE 100 MG TAB PO SCH (08:55)
[2017-06-25] MEDS: TOPIRAMATE SPRINKLE 25 MG CAP PO SCH ×2 (08:55→20:36)
[2017-06-25] MEDS: CHOLECALCIFEROL 1,000 UNIT TAB PO SCH (08:55)
[2017-06-25] MEDS: NEOMYC/POLYMYX/BACIT 30 GM OINT TOP SCH ×2 (08:57→20:37)
[2017-06-25] MEDS: ARTIFICIAL TEARS 15 ML OPH BOTH EYES SCH ×4 (09:02→20:35)
[2017-06-25] MEDS: LEVETIRACETAM 1500 MG (PMX) 100 ML IVPB SCH ×2 (09:05→20:35)
--- NOTE | 2017-06-25 11:16 | CONS ---
Date/Time of Note Date/Time of Note DATE: 06/25/17 TIME: 11:14 Consult Date/Type/Reason Admit Date/Time Jun 15, 2017 at 20:20 Initial Consult Date 06/23/17 Type of Consultation: Neurology Reason for Consultation seizures SDH Ordering Provider: ALEXANDER DARBY Subjective no further eye rolling per aide however patient has been clenching her fists remains very encephalopathic Objective Vital Signs Date Time Temp Pulse Resp B/P Pulse Ox O2 Delivery O2 Flow Rate FiO2 06/25/17 08:00 86 06/25/17 07:55 99.1 20 117/56 96 06/24/17 20:00 Intake and Output 06/24/17 06/24/17 06/25/17 15:00 23:00 07:00 Intake Total 100 ml 1407.5 ml 120 ml Output Total 1800 ml 1450 ml Balance 100 ml -392.5 ml -1330 ml Exam drowsy difficult to arouse unable to follow commands CN: gaze orthophoric JAH, Dolls intact no sig. facial asymmetry Motor: poor cooperation, purposeful movement in plane of bed in all extremities w/d appropriately in all extremities limited exam Results/Medications Result Diagram: 06/25/17 0615 06/25/17 0615 Results 24 hrs Laboratory Tests Test 06/25/17 06:15 06/25/17 07:22 White Blood Count 9.4 Red Blood Count 3.06 L Hemoglobin 9.5 L Hematocrit 28.2 L Mean Corpuscular Volume 92.2 Mean Corpuscular Hemoglobin 31.0 Mean Corpuscular Hemoglobin Concent 33.7 Red Cell Distribution Width 13.8 Platelet Count 466 H Mean Platelet Volume 9.7 Neutrophils % 52.2 Lymphocytes % 26.9 Monocytes % 15.6 H Eosinophils % 1.9 Basophils % 0.4 Nucleated Red Blood Cells % 0.2 H Neutrophils # (Manual) 4.9 Lymphocytes # 2.5 Monocytes # 1.5 H Eosinophils # 0.2 Basophils # 0.0 Nucleated Red Blood Cells # 0.0 Sodium Level 139 Potassium Level 3.5 Chloride Level 108 Carbon Dioxide Level 26 Anion Gap 9 Blood Urea Nitrogen 13 Creatinine 0.66 Glucose Level 104 Calcium Level 8.6 Phosphorus Level 3.9 Magnesium Level 2.0 Lab Scanned Report BLOOD TRANSFUSION Medications Current Medications Aripiprazole (Abilify) 10 mg DAILY PO Last administered on 06/25/17 08:55; Admin Dose 10 MG; Start 06/16/17 at 09:00 Cholecalciferol (Vitamin D) 1,000 unit DAILY PO Last administered on 06/25/17 08:55; Admin Dose 1,000 UNIT; Start 06/16/17 at 09:00 Topiramate (Topamax Sprinkle) 50 mg BID PO Last administered on 06/25/17 08:55 ; Admin Dose 50 MG; Start 06/15/17 at 21:00 Topiramate (Topamax) 100 mg BID PO Last administered on 06/25/17 08:55; Admin Dose 100 MG; Start 06/15/17 at 21:00 Lorazepam (Ativan) 2 mg Q1H PRN IV seizure Last administered on 06/22/17 19:27 ; Admin Dose 2 MG; Start 06/15/17 at 20:30 Acetaminophen (Tylenol Tab) 650 mg Q4H PRN PO pain/fever Last administered on 20:34; Admin Dose 650 MG; Start 06/15/17 at 20:30 Morphine Sulfate (morphine) 2 mg Q2H PRN IV pain Last administered on 22:53; Admin Dose 2 MG; Start 06/15/17 at 20:30 Ondansetron HCl (Zofran Inj) 4 mg Q4H PRN IV nausea; Start 06/15/17 at 20:30 Docusate Sodium (Colace) 100 mg DAILY PRN PO CONSTIPATION Last administered on 06/23/17 08:09; Admin Dose 100 MG; Start 06/16/17 at 10:30 Lactulose (Enulose) 20 gm BID PRN PO CONSTIPATION; Start 06/16/17 at 10:30 IV Flush (NS 10 ml) 10 ml PRN PRN IV IV PROTOCOL; Start 06/16/17 at 15:30 Labetalol HCl (Labetalol) 10 mg Q10M PRN IV ELEVATED BLOOD PRESSURE; Start 06/16 at 17:00 Hydralazine HCl (Apresoline) 10 mg Q4H PRN IV ELEVATED BLOOD PRESSURE; Start at 17:00 Neomycin/ Polymyxin/ Bacitracin (Neosporin Topical Oint) 1 applic BID TOP Last administered on 06/25/17 08:57; Admin Dose 1 APPLIC; Start 06/18/17 at 21:00 Acetaminophen 650 mg 650 mg Q6H PRN [place] FEVER; Start 06/22/17 at 16:30 Valproate Sodium 750 mg/Sodium Chloride 57.5 ml @ 55 mls/hr Q8 IVPB Last administered on 06/25/17 06:23; Admin Dose 55 MLS/HR; Start 06/23/17 at 14:00 Levetiracetam 100 ml @ 400 mls/hr Q12 IVPB Last administered on 06/25/17 09: 05; Admin Dose 400 MLS/HR; Start 06/23/17 at 21:00 Dextrose/Sodium Chloride (D5-NS) 1,000 ml @ 100 mls/hr Q10H IV Last administered on 06/25/17 05:32; Admin Dose 100 MLS/HR; Start 06/23/17 at 12:30 Eye Lubricant (Artificial Tears Oph) 2 drop QID BOTH EYES Last administered on 06/25/17 09:02; Admin Dose 2 DROP; Start 06/24/17 at 17:00 Assessment/Plan Chief Complaint/Hosp Course 51 yo female with 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 -c/w Keppra 1500 mg q12h -c/w VPA 750 mg q8h -increase Topamax to 200 mg BID -seizure precautions -EEG ordered -ativan prn 0.1 mg/kg for seizure activity max dose 4 mg at once, max dose 10 mg in 24 hours would benefit to transfer for 24 hour EEG monitoring and higher level of care Problems: ADAM URENA MD Jun 25, 2017 11:15
[2017-06-25] MEDS: ACETAMINOPHEN 650 MG SUPP PR PRN (11:56)
--- NOTE | 2017-06-25 13:42 | PN ---
Date/Time of Note Date/Time of Note DATE: 06/25/17 TIME: 13:19 Assessment/Plan VTE Prophylaxis VTE Prophylaxis Intervention: SCD's Lines/Catheters IV Catheter Type (from Nrs): PICC Line Central line still needed: Yes (for IV access ) Urinary Cath still in place: Yes Reason Cath still needed: other (indicate) (Monitor urine output) Assessment/Plan Assessment/Plan 51-year-old female with: 1. Right subdural hematoma, status post subdural hematoma drainage POD#8 with now removal of subdural drain 06/21 Patient still encephalopathic, lethargic, no active seizures reported since increase of her antiseizure medication however patient still having episodes of fevers once a day now up to 102 for the past 3 days at least, all cultures negative so far, white blood cell count within normal, hemodynamically stable. We will repeat cultures again today, discussed with Dr. Villavicencio, will get a CAT scan of the head noncontrast, also will order lumbar puncture to complete infectious workup. Appreciate recommendations from neurology, EEG was ordered, her Topamax was already increased today by neurology We are attempting transfer to a 24 hour EEG capable facility, 2. Seizure disorder, refractory to medications apparently: Appreciate recommendations from neurology , continue current medication, EEG has been ordered, CAT scan of the head reordered per neuro surgery Status post vagal nerve stimulator. Patient will have to follow-up with a [facility] neurology regarding adjustment of her vagal nerve stimulator to help with seizures refractory to medications. For now due to the fact that she is limited by her IPA to the network there contracted to, we are attempting a transfer to [facility] where continuous EEG is available, I will consult with infectious disease first and repeat her studies to rule out any acute infection again given the fevers prior to transferring. 3. Developmental delay: Close neurological monitoring given acute traumatic head injury with right subdural hematoma. Continue outpatient medications. 4. GERD: Continue Protonix 5. Chronic constipation: Continue outpatient regimen as well as patient able to take p.o. Prophylaxis: Protonix for GI prophylaxis, SCDs to lower extremity for DVT prophylaxis Disposition: Status post right subdural hematoma evacuation, drain removed 4 days ago. She will need a one-to-one sitter and ongoing seizure precautions. CAT scan of the head pending, lumbar puncture to be ordered, infectious disease consult pending. Subjective 24 Hr Interval Summary Free Text/Dictation Patient seems to be more awake today during my exam, she is propped up in the bed, she is eating, no signs of aspiration, she answers her name, she answers she is okay when asked how she is doing OK. Still noted to be lethargic and somewhat encephalopathic Topamax increased per neurology and EEG is also ordered. Also currently having fever to 102.9, cultures have been sent again, after discussion with Dr. Villavicencio, a CAT scan of the head is pending for follow-up. After discussion with both neurosurgery and neurology, will check a lumbar puncture also to complete repeat infectious work up. Further infectious workup per ID Exam/Review of Systems Vital Signs Vitals Vital Signs Date Time Temp Pulse Resp B/P Pulse Ox O2 Delivery O2 Flow Rate FiO2 06/25/17 12:47 102.5 06/25/17 12:00 109 06/25/17 11:36 20 135/61 95 06/24/17 20:00 Intake and Output 06/24/17 06/24/17 06/25/17 15:00 23:00 07:00 Intake Total 100 ml 1407.5 ml 120 ml Output Total 1800 ml 1450 ml Balance 100 ml -392.5 ml -1330 ml Exam Constitutional: alert, oriented (x1 to 2 ), other (Encephalopathic) Cardiovascular: nl pulses, regular rate and rhythm Gastrointestinal: non-tender, soft Musculoskeletal: nl extremities to inspection, other Extremities: normal pulses Neurological: LEATHER POLISHER II-XII intact, lethargic, other (Still somewhat encephalopathic) Results Result Diagram: 06/25/17 0615 06/25/17 0615 Results 24 hrs Laboratory Tests Test 06/25/17 06:15 06/25/17 07:22 White Blood Count 9.4 Red Blood Count 3.06 L Hemoglobin 9.5 L Hematocrit 28.2 L Mean Corpuscular Volume 92.2 Mean Corpuscular Hemoglobin 31.0 Mean Corpuscular Hemoglobin Concent 33.7 Red Cell Distribution Width 13.8 Platelet Count 466 H Mean Platelet Volume 9.7 Neutrophils % 52.2 Lymphocytes % 26.9 Monocytes % 15.6 H Eosinophils % 1.9 Basophils % 0.4 Nucleated Red Blood Cells % 0.2 H Neutrophils # (Manual) 4.9 Lymphocytes # 2.5 Monocytes # 1.5 H Eosinophils # 0.2 Basophils # 0.0 Nucleated Red Blood Cells # 0.0 Sodium Level 139 Potassium Level 3.5 Chloride Level 108 Carbon Dioxide Level 26 Anion Gap 9 Blood Urea Nitrogen 13 Creatinine 0.66 Glucose Level 104 Calcium Level 8.6 Phosphorus Level 3.9 Magnesium Level 2.0 Lab Scanned Report BLOOD TRANSFUSION Medications Medications Current Medications Aripiprazole (Abilify) 10 mg DAILY PO Last administered on 06/25/17 08:55; Admin Dose 10 MG; Start 06/16/17 at 09:00 Cholecalciferol (Vitamin D) 1,000 unit DAILY PO Last administered on 06/25/17 08:55; Admin Dose 1,000 UNIT; Start 06/16/17 at 09:00 Lorazepam (Ativan) 2 mg Q1H PRN IV seizure Last administered on 06/22/17 19:27 ; Admin Dose 2 MG; Start 06/15/17 at 20:30 Acetaminophen (Tylenol Tab) 650 mg Q4H PRN PO pain/fever Last administered on 20:34; Admin Dose 650 MG; Start 06/15/17 at 20:30 Morphine Sulfate (morphine) 2 mg Q2H PRN IV pain Last administered on 22:53; Admin Dose 2 MG; Start 06/15/17 at 20:30 Ondansetron HCl (Zofran Inj) 4 mg Q4H PRN IV nausea; Start 06/15/17 at 20:30 Docusate Sodium (Colace) 100 mg DAILY PRN PO CONSTIPATION Last administered on 06/23/17 08:09; Admin Dose 100 MG; Start 06/16/17 at 10:30 Lactulose (Enulose) 20 gm BID PRN PO CONSTIPATION; Start 06/16/17 at 10:30 IV Flush (NS 10 ml) 10 ml PRN PRN IV IV PROTOCOL; Start 06/16/17 at 15:30 Labetalol HCl (Labetalol) 10 mg Q10M PRN IV ELEVATED BLOOD PRESSURE; Start 06/16 at 17:00 Hydralazine HCl (Apresoline) 10 mg Q4H PRN IV ELEVATED BLOOD PRESSURE; Start at 17:00 Neomycin/ Polymyxin/ Bacitracin (Neosporin Topical Oint) 1 applic BID TOP Last administered on 06/25/17 08:57; Admin Dose 1 APPLIC; Start 06/18/17 at 21:00 Acetaminophen 650 mg 650 mg Q6H PRN [place] FEVER Last administered on 06/25/17 11: 56; Admin Dose 650 MG; Start 06/22/17 at 16:30 Valproate Sodium 750 mg/Sodium Chloride 57.5 ml @ 55 mls/hr Q8 IVPB Last administered on 06/25/17 06:23; Admin Dose 55 MLS/HR; Start 06/23/17 at 14:00 Levetiracetam 100 ml @ 400 mls/hr Q12 IVPB Last administered on 06/25/17 09: 05; Admin Dose 400 MLS/HR; Start 06/23/17 at 21:00 Dextrose/Sodium Chloride (D5-NS) 1,000 ml @ 100 mls/hr Q10H IV Last administered on 06/25/17 05:32; Admin Dose 100 MLS/HR; Start 06/23/17 at 12:30 Eye Lubricant (Artificial Tears Oph) 2 drop QID BOTH EYES Last administered on 06/25/17 09:02; Admin Dose 2 DROP; Start 06/24/17 at 17:00 Topiramate (Topamax Sprinkle) 200 mg BID PO ; Start 06/25/17 at 21:00 ALEXANDER DARBY Jun 25, 2017 13:31
--- NOTE | 2017-06-25 13:52 | RADRPT ---
PROCEDURE: XR Chest. CLINICAL INDICATION: fever TECHNIQUE: Single frontal view of the chest was obtained. COMPARISON: Chest x-ray from 06/22/2017 FINDINGS: A right-sided PICC line is again noted with its tip in the mid SVC. The heart and mediastinum are within normal limits. There is a stable retrocardiac opacity due to atelectasis, infiltrate, and / or effusion. There is no significant pleural effusion or pneumothorax. A left chest wall vagal stimulator device is again noted which limits evaluation of the left costoph renic angle. IMPRESSION: Stable retrocardiac opacity due to atelectasis, infiltrate, and / or effusion. Evaluation is limite d by a left chest wall vagal stimulator device. Right-sided PICC line. RPTAT: EE Physician Gerri Date Time Electronically viewed and signed by Physician Gerri on 06/25/2017 13:52 /
--- NOTE | 2017-06-25 14:32 | RADRPT ---
PROCEDURE: CT Brain without contrast. CLINICAL INDICATION: Status post evacuation of subdural hematoma. Follow-up. TECHNIQUE: A multiplanar CT of the brain was performed on a CT scanner utilizing axial imaging fro m the skull base through the vertex without IV contrast. The CTDIvol is 44.77 mGy and the DLP is 72 0.23 mGycm. One or more of the following dose reduction techniques were utilized: Automated exposu re control, adjustment of the mA and/or kV according to patient size, use of iterative reconstructio n technique. COMPARISON: None FINDINGS: Stable right craniotomy with overlying scalp surgical oralia. There has been interval removal of s ubgaleal drain. Trace persistent subdural collection underlying the craniotomy with resolution of p neumocephalus most compatible with postoperative change. No new extra-axial collection is identifie d. Encephalomalacia of the right frontal lobe. Near complete resolution of mass effect on the right la teral ventricle and right cerebral hemisphere. Grossly stable appearance of subdural hematomas juan carlos g the tentorium, bilateral occipital and parietal lobes, and right posterior falx. No interval de león ge or increase size. Stable mild periventricular and subcortical white matter hypo attenuation compatible with sequelae o f chronic microvascular ischemic changes and physiologic basal ganglia calcifications. Note is made of cerebellar atrophy. There is preservation of the remaining bolivar white differentiation. The basal cisterns, posterior fossa contents, brainstem, craniocervical junction, orbits, pituitary axis, paranasal sinuses, mastoid air cells, and calvarium are unremarkable. IMPRESSION: 1. Stable right frontal craniotomy status post evacuation of right convexity subdural hematoma. Mi nimal persistent extra-axial collection underlying the craniotomy compatible with postoperative de león ges and dural thickening. 2. Interval removal of subgaleal drain. 3. Stable subdural hematomas along bilateral parietal and occipital lobes as well as tentorium and right falx. 4. Right frontal lobe encephalomalacia suggestive of sequelae of post-traumatic contusion. 5. Mild generalized volume loss with more focal cerebellar atrophy. RPTAT:AAJJ Physician Neda Date Time Electronically viewed and signed by Physician Neda on 06/25/2017 14:32 LAURIE/
--- NOTE | 2017-06-25 16:12 | CONS ---
Date/Time of Note Date/Time of Note DATE: 06/25/17 TIME: 16:10 Consultation Date/Type/Reason Admit Date/Time Jun 15, 2017 at 20:20 Date of Consultation: Jun 25, 2017 Type of Consultation: ID Reason for Consultation Antibiotic management Social History Smoking Status: Never smoker Exam/Review of Systems Vital Signs Vitals Vital Signs Date Time Temp Pulse Resp B/P Pulse Ox O2 Delivery O2 Flow Rate FiO2 06/25/17 16:03 98.1 76 18 128/63 95 06/24/17 20:00 Intake and Output 06/24/17 06/24/17 06/25/17 15:00 23:00 07:00 Intake Total 100 ml 1407.5 ml 120 ml Output Total 1800 ml 1450 ml Balance 100 ml -392.5 ml -1330 ml Results Result Diagram: 06/25/17 0615 06/25/17 0615 Results 24 hrs Laboratory Tests Test 06/25/17 06:15 06/25/17 07:22 White Blood Count 9.4 Red Blood Count 3.06 L Hemoglobin 9.5 L Hematocrit 28.2 L Mean Corpuscular Volume 92.2 Mean Corpuscular Hemoglobin 31.0 Mean Corpuscular Hemoglobin Concent 33.7 Red Cell Distribution Width 13.8 Platelet Count 466 H Mean Platelet Volume 9.7 Neutrophils % 52.2 Lymphocytes % 26.9 Monocytes % 15.6 H Eosinophils % 1.9 Basophils % 0.4 Nucleated Red Blood Cells % 0.2 H Neutrophils # (Manual) 4.9 Lymphocytes # 2.5 Monocytes # 1.5 H Eosinophils # 0.2 Basophils # 0.0 Nucleated Red Blood Cells # 0.0 Sodium Level 139 Potassium Level 3.5 Chloride Level 108 Carbon Dioxide Level 26 Anion Gap 9 Blood Urea Nitrogen 13 Creatinine 0.66 Glucose Level 104 Calcium Level 8.6 Phosphorus Level 3.9 Magnesium Level 2.0 Lab Scanned Report BLOOD TRANSFUSION Medications Medications Current Medications Aripiprazole (Abilify) 10 mg DAILY PO Last administered on 06/25/17 08:55; Admin Dose 10 MG; Start 06/16/17 at 09:00 Cholecalciferol (Vitamin D) 1,000 unit DAILY PO Last administered on 06/25/17 08:55; Admin Dose 1,000 UNIT; Start 06/16/17 at 09:00 Lorazepam (Ativan) 2 mg Q1H PRN IV seizure Last administered on 06/22/17 19:27 ; Admin Dose 2 MG; Start 06/15/17 at 20:30 Acetaminophen (Tylenol Tab) 650 mg Q4H PRN PO pain/fever Last administered on 20:34; Admin Dose 650 MG; Start 06/15/17 at 20:30 Morphine Sulfate (morphine) 2 mg Q2H PRN IV pain Last administered on 22:53; Admin Dose 2 MG; Start 06/15/17 at 20:30 Ondansetron HCl (Zofran Inj) 4 mg Q4H PRN IV nausea; Start 06/15/17 at 20:30 Docusate Sodium (Colace) 100 mg DAILY PRN PO CONSTIPATION Last administered on 06/23/17 08:09; Admin Dose 100 MG; Start 06/16/17 at 10:30 Lactulose (Enulose) 20 gm BID PRN PO CONSTIPATION; Start 06/16/17 at 10:30 IV Flush (NS 10 ml) 10 ml PRN PRN IV IV PROTOCOL; Start 06/16/17 at 15:30 Labetalol HCl (Labetalol) 10 mg Q10M PRN IV ELEVATED BLOOD PRESSURE; Start 06/16 at 17:00 Hydralazine HCl (Apresoline) 10 mg Q4H PRN IV ELEVATED BLOOD PRESSURE; Start at 17:00 Neomycin/ Polymyxin/ Bacitracin (Neosporin Topical Oint) 1 applic BID TOP Last administered on 06/25/17 08:57; Admin Dose 1 APPLIC; Start 06/18/17 at 21:00 Acetaminophen 650 mg 650 mg Q6H PRN [place] FEVER Last administered on 06/25/17 11: 56; Admin Dose 650 MG; Start 06/22/17 at 16:30 Valproate Sodium 750 mg/Sodium Chloride 57.5 ml @ 55 mls/hr Q8 IVPB Last administered on 06/25/17 15:20; Admin Dose 55 MLS/HR; Start 06/23/17 at 14:00 Levetiracetam 100 ml @ 400 mls/hr Q12 IVPB Last administered on 06/25/17 09: 05; Admin Dose 400 MLS/HR; Start 06/23/17 at 21:00 Dextrose/Sodium Chloride (D5-NS) 1,000 ml @ 100 mls/hr Q10H IV Last administered on 06/25/17 05:32; Admin Dose 100 MLS/HR; Start 06/23/17 at 12:30 Eye Lubricant (Artificial Tears Oph) 2 drop QID BOTH EYES Last administered on 06/25/17 15:21; Admin Dose 2 DROP; Start 06/24/17 at 17:00 Topiramate (Topamax Sprinkle) 200 mg BID PO ; Start 06/25/17 at 21:00 BLESSING HUFF MD Jun 25, 2017 16:11
[2017-06-25 16:24] LABS: INR 1.14; PROTIME 14.6 Sec (12.2-14.2); PT RATIO 1.1
[2017-06-25 16:25] LABS: PARTIAL THROMBOPLASTIN TIME 27.3 Sec (25.0-35.0)
[2017-06-26] VITALS (15 sets, daily range): BP systolic 90–134; BP diastolic 50–71; PULSE 57–115; RESP 15–20
[2017-06-26] MEDS: ACETAMINOPHEN 325 MG TAB PO PRN ×2 (00:43→20:46)
[2017-06-26 02:02] LABS: ADD UMIC YES; UR ASCORBIC ACID NEGATIVE (NEGATIVE); UR BILIRUBIN (Dip) NEGATIVE (NEGATIVE); UR BLOOD (Dip) NEGATIVE (NEGATIVE); UR CLARITY CLOUDY (CLEAR); UR COLOR YELLOW (YELLOW); UR GLUCOSE (Dip) NEGATIVE (NEGATIVE); UR KETONES (Dip) NEGATIVE (NEGATIVE); UR LEUKOCYTE ESTERASE (Dip) NEGATIVE Leu/ul (NEGATIVE); UR MUCUS FEW /HPF (NONE SEEN); UR NITRITE (Dip) NEGATIVE (NEGATIVE); UR RBC 1 /HPF (0-5); UR SPECIFIC GRAVITY (Dip) 1.014 (1.003-1.030); UR TOTAL PROTEIN (Dip) NEGATIVE (NEGATIVE); UR UROBILINOGEN (Dip) 2+ mg/dL (NEGATIVE)
[2017-06-26] MEDS: VALPROATE INJ 750 MG in SOD CHLORIDE 0.9% 50 ML IVPB SCH ×3 (05:30→22:22)
[2017-06-26 06:55] LABS: BASOPHILS % 0.2 % (0.0-2.0); EOSINOPHILS # 0.1 10^3/ul (0.0-0.5); HEMOGLOBIN 9.5 g/dl (12.0-16.0); LYMPHOCYTES # 3.3 10^3/ul (0.8-2.9); LYMPHOCYTES % 30.8 % (15.0-51.0); MEAN CORPUSCULAR HEMOGLOBIN 30.9 pg (29.0-33.0); MEAN CORPUSCULAR HGB CONC 33.9 g/dl (32.0-37.0); MEAN CORPUSCULAR VOLUME 91.2 fl (82.0-101.0); MEAN PLATELET VOLUME 9.6 fl (7.4-10.4); MONOCYTE # 1.4 10^3/ul (0.3-0.9); MONOCYTES % 13.3 % (0.0-11.0); NEUTROPHILS % 53.4 % (39.0-77.0); NUCLEATED RED BLOOD CELLS% 0.2 /100WBC (0.0-0.0); PLATELET COUNT 482 10^3/UL (140-415); RED BLOOD COUNT 3.07 10^6/ul (4.20-5.40); RED CELL DISTRIBUTION WIDTH 13.6 % (11.5-14.5); WHITE BLOOD COUNT 10.6 10^3/ul (4.8-10.8)
[2017-06-26 07:09] LABS: CALCIUM 8.7 mg/dl (8.4-10.2); CREATININE 0.67 mg/dl (0.44-1.00); POTASSIUM 3.5 mmol/L (3.5-5.1)
[2017-06-26 07:13] LABS: PHOSPHORUS 4.2 mg/dl (2.5-4.9)
--- NOTE | 2017-06-26 07:54 | CONS ---
DATE OF ADMISSION: 06/15/2017 DATE OF CONSULTATION: REASON FOR CONSULTATION: Antibiotic management. HISTORY OF PRESENT ILLNESS: Hayde Lazo is an unfortunate 51- year-old female who presented to the emergency room with seizures. She turned out to have a right subdural hematoma. She is now status post subdural hematoma drainage by Dr. Villavicencio, postop day number 8, and she had removal of her subdural drain on 06/21. Patient was noted to also still have encephalopathic changes with lethargy, although she is more alert today on valproate. She has been having episodes of fevers once a day now for up to 102-103 degrees. Her white count is essentially normal. Today her white count is 9.4, H and H of 9.5 and 28.2, platelet count 466,000. BUN and creatinine 13/0.66, glucose of 104. Today, her is 102.9. OTHER PROBLEMS: 1. Seizure disorder, refractory to medications apparently. An EEG has been ordered. CAT scan of the head reordered per Neurosurgery. 2. Status post vagal nerve stimulator. 3. Developmental delay. 4. GERD. 5. Chronic constipation. PAST MEDICAL HISTORY: OPERATIONS: She just had an evacuation of a subdural. FAMILY HISTORY: Noncontributory. SOCIAL HISTORY: She does not smoke, drink, or abuse drugs. ALLERGIES: NONE TO PENICILLIN, SULFA OR FOODS. MEDICATION: Per chart. REVIEW OF SYSTEMS: As per HPI. PHYSICAL EXAMINATION: GENERAL: Patient is a diminutive female who is awake, able to answer to her name. No obvious distress. VITAL SIGNS: The patient with a temperature to 102.9. Today up to 102.9. SKIN: Without generalized rash. Evidence of surgery on the frontal lobe on the right. NECK: Supple. Lymph nodes nonpalpable. CHEST: Decreased breath sounds at the bases. HEART: Without murmur or gallop. ABDOMEN: Soft. Nontender without organosplenomegaly or masses. EXTREMITIES: Without cyanosis, clubbing or edema. RECTAL: Deferred. GENITAL: Deferred. NEUROLOGICAL: Evaluation as per Neurology. No focal neurological abnormalities. IMPRESSION AND PLAN: Patient currently is febrile. She is scheduled for another lumbar puncture. Blood cultures have been ordered. Urinalysis and cultures have been ordered, and the patient is currently off antibiotic therapy. She does not appear to be toxic, so we will continue her on this regimen off antibiotics. We should have blood cultures and urine cultures. Blood cultures from the 14th and urine cultures from the th are all negative. I will dictate my findings to Dr. Ochoa, Dr. Villavicencio, and to the other consultants such as Dr. Mari. Dictated By: Blade Sutherland MD [email or web address] /Document#: [id number]
[2017-06-26] MEDS: METOCLOPRAMIDE 10 MG INJ IV SCH ×3 (08:23→17:06)
[2017-06-26] MEDS: ARIPIPRAZOLE 10 MG TAB PO SCH (08:23)
[2017-06-26] MEDS: CHOLECALCIFEROL 1,000 UNIT TAB PO SCH (08:24)
[2017-06-26] MEDS: ARTIFICIAL TEARS 15 ML OPH BOTH EYES SCH ×4 (08:25→22:22)
[2017-06-26] MEDS: NEOMYC/POLYMYX/BACIT 30 GM OINT TOP SCH ×2 (08:25→20:45)
[2017-06-26] MEDS: TOPIRAMATE SPRINKLE 25 MG CAP PO SCH ×2 (08:25→20:44)
[2017-06-26] MEDS: LANSOPRAZOLE 30 MG CAP PO SCH (08:31)
[2017-06-26] MEDS: LEVETIRACETAM 1500 MG (PMX) 100 ML IVPB SCH ×2 (08:32→20:44)
[2017-06-26] MEDS: DEXTROSE 5%-0.9% NACL 1,000 ML IV SCH ×2 (10:42→20:42)
--- NOTE | 2017-06-26 14:23 | RADRPT ---
PROCEDURE: Lumbar puncture CLINICAL INDICATION: Fever TECHNIQUE: Risks benefits and alternatives of the procedure were explained to the patient. Inform ed written consent was obtained. The overlying skin of the lower back was prepped and draped in the usual sterile fashion. Utilizing fluoroscopic guidance, a 22-gauge spinal needle was introduced in to the spinal canal at the L3-4 level without difficulty. Approximately 7 cc of red tinged cerebros joey fluid was obtained. No complications occurred. The patient was instructed to lie flat for th e next 4-6 hours to reduce the risk of spinal headache. Fluoro time: 0.5 minutes Number of images/sequences: 2 COMPARISON: None available FINDINGS: Successful lumbar puncture under fluoroscopic guidance. IMPRESSION: 1. Successful lumbar puncture under fluoroscopic guidance. RPTAT: QQ .Norm Sales MD, Date Time Electronically viewed and signed by .Norm Sales MD, on 06/26/2017 14:23 .R/
--- NOTE | 2017-06-26 14:26 | PN ---
Date/Time of Note Date/Time of Note DATE: 06/26/17 TIME: 14:17 Assessment/Plan VTE Prophylaxis VTE Prophylaxis Intervention: SCD's Lines/Catheters IV Catheter Type (from Nrs): PICC Line Central line still needed: Yes (For IV access) Urinary Cath still in place: Yes Reason Cath still needed: other (indicate) (Bed rest) Assessment/Plan Assessment/Plan 51-year-old female with: 1. Right subdural hematoma, status post subdural hematoma drainage POD#9 with now removal of subdural drain 06/21 Patient still encephalopathic, lethargic, no active seizures reported since further increase of her antiseizure medications again yesterday. However patient still having episodes of fevers once a day now up to 102 for the past 4 days at least, All cultures negative so far, and also all cultures were redrawn and sent yesterday. Appreciate recommendations from infectious disease, for now no antibiotics, awaiting lumbar puncture result today. Still white blood cell count within normal, hemodynamically stable. Repeat CAT scan of the head stable. Neurology and neurosurgery agreeable with transfer to facility with 24-hour EEG capabilities. I will follow up with infectious disease today in order to review the current infectious workup. For now no antibiotics recommended. We are attempting transfer to a 24 hour EEG capable facility, [facility], today if bed available and patient stable. 2. Seizure disorder, refractory to medications apparently: Appreciate recommendations from neurology , continue current medication, EEG was done yesterday, reading pending. Repeat CAT scan of the head yesterday, stable. Status post vagal nerve stimulator. Patient will have to follow-up with a [facility] neurology regarding adjustment of her vagal nerve stimulator to help with seizures refractory to medications. For now due to the fact that she is limited by her IPA to the network there contracted to, we are attempting a transfer to [facility] where continuous EEG is available. 3. Developmental delay: Close neurological monitoring given acute traumatic head injury with right subdural hematoma. Continue outpatient medications. 4. GERD: Continue Protonix 5. Chronic constipation: Continue outpatient regimen as well as patient able to take p.o. Prophylaxis: Protonix for GI prophylaxis, SCDs to lower extremity for DVT prophylaxis Disposition: Status post right subdural hematoma evacuation, drain removed 5 days ago. Lumbar puncture done and results pending, follow-up infectious disease recommendations, transfer to [facility] pending this evening. Subjective 24 Hr Interval Summary Free Text/Dictation Patient status post lumbar puncture today, she is much more awake today, she and she is okay to all questions. Since her fever to 103 yesterday afternoon she has been afebrile but seems to have a low-grade temperature currently. Appreciate infectious disease, neurology, neurosurgery recommendations. Follow-up CAT scan of the head is stable, cultures including blood and urine no growth to date, lumbar puncture done this early afternoon, results pending. Plan is to transfer to [facility] if no signs of instability today and if we obtain a bed. Exam/Review of Systems Vital Signs Vitals Vital Signs Date Time Temp Pulse Resp B/P Pulse Ox O2 Delivery O2 Flow Rate FiO2 06/26/17 12:26 94 06/26/17 07:58 99.7 18 90/50 97 06/24/17 20:00 Intake and Output 06/25/17 06/25/17 06/26/17 14:59 22:59 06:59 Intake Total 780 ml 1715.0 ml Output Total 800 ml 1600 ml 3100 ml Balance -800 ml -820 ml -1385.0 ml Exam Constitutional: alert, oriented (x2), other (Lying flat in bed currently post lumbar puncture) Respiratory: clear to auscultation, normal air movement Cardiovascular: nl pulses, regular rate and rhythm Gastrointestinal: non-tender, soft Musculoskeletal: nl extremities to inspection, other (No edema, clubbing or cyanosis) Extremities: normal pulses Neurological: [employer] II-XII intact, other (Mental status, speech at baseline, current bed rest due to repeated episodes of seizures but improved) Results Result Diagram: 06/26/17 0530 06/26/17 0547 Results 24 hrs Laboratory Tests Test 06/25/17 15:15 06/25/17 21:02 06/26/17 05:30 06/26/17 05:47 Prothrombin Time 14.6 H Prothrombin Time Ratio 1.1 INR International Normalized Ratio 1.14 Activated Partial Thromboplast Time 27.3 Urine Color YELLOW Urine Clarity CLOUDY A Urine pH 8.0 Urine Specific [place] 1.014 Urine Ketones NEGATIVE Urine Nitrite NEGATIVE Urine Bilirubin NEGATIVE Urine Urobilinogen 2+ H Urine Leukocyte Esterase NEGATIVE Urine Microscopic RBC 1 Urine Microscopic WBC 0 Urine Mucus FEW A Urine Hemoglobin NEGATIVE Urine Glucose NEGATIVE Urine Total Protein NEGATIVE White Blood Count 10.6 Red Blood Count 3.07 L Hemoglobin 9.5 L Hematocrit 28.0 L Mean Corpuscular Volume 91.2 Mean Corpuscular Hemoglobin 30.9 Mean Corpuscular Hemoglobin Concent 33.9 Red Cell Distribution Width 13.6 Platelet Count 482 H Mean Platelet Volume 9.6 Neutrophils % 53.4 Lymphocytes % 30.8 Monocytes % 13.3 H Eosinophils % 1.0 Basophils % 0.2 Nucleated Red Blood Cells % 0.2 H Neutrophils # (Manual) 6 Lymphocytes # 3.3 H Monocytes # 1.4 H Eosinophils # 0.1 Basophils # 0.0 Nucleated Red Blood Cells # 0.0 Phosphorus Level 4.2 Magnesium Level 2.0 Sodium Level 139 Potassium Level 3.5 Chloride Level 107 Carbon Dioxide Level 26 Anion Gap 10 Blood Urea Nitrogen 11 Creatinine 0.67 Glucose Level 95 Calcium Level 8.7 Medications Medications Current Medications Aripiprazole (Abilify) 10 mg DAILY PO Last administered on 06/26/17 08:23; Admin Dose 10 MG; Start 06/16/17 at 09:00 Cholecalciferol (Vitamin D) 1,000 unit DAILY PO Last administered on 06/26/17 08:24; Admin Dose 1,000 UNIT; Start 06/16/17 at 09:00 Lorazepam (Ativan) 2 mg Q1H PRN IV seizure Last administered on 06/22/17 19:27 ; Admin Dose 2 MG; Start 06/15/17 at 20:30 Acetaminophen (Tylenol Tab) 650 mg Q4H PRN PO pain/fever Last administered on 00:43; Admin Dose 650 MG; Start 06/15/17 at 20:30 Morphine Sulfate (morphine) 2 mg Q2H PRN IV pain Last administered on 22:53; Admin Dose 2 MG; Start 06/15/17 at 20:30 Ondansetron HCl (Zofran Inj) 4 mg Q4H PRN IV nausea; Start 06/15/17 at 20:30 Docusate Sodium (Colace) 100 mg DAILY PRN PO CONSTIPATION Last administered on 06/23/17 08:09; Admin Dose 100 MG; Start 06/16/17 at 10:30 Lactulose (Enulose) 20 gm BID PRN PO CONSTIPATION; Start 06/16/17 at 10:30 IV Flush (NS 10 ml) 10 ml PRN PRN IV IV PROTOCOL; Start 06/16/17 at 15:30 Labetalol HCl (Labetalol) 10 mg Q10M PRN IV ELEVATED BLOOD PRESSURE; Start 06/16 at 17:00 Hydralazine HCl (Apresoline) 10 mg Q4H PRN IV ELEVATED BLOOD PRESSURE; Start at 17:00 Neomycin/ Polymyxin/ Bacitracin (Neosporin Topical Oint) 1 applic BID TOP Last administered on 06/26/17 08:25; Admin Dose 1 APPLIC; Start 06/18/17 at 21:00 Acetaminophen 650 mg [address] FEVER Last administered on 06/25/17 11: 56; Admin Dose 650 MG; Start 06/22/17 at 16:30 Valproate Sodium 750 mg/Sodium Chloride 57.5 ml @ 55 mls/hr Q8 IVPB Last administered on 06/26/17 05:30; Admin Dose 55 MLS/HR; Start 06/23/17 at 14:00 Levetiracetam 100 ml @ 400 mls/hr Q12 IVPB Last administered on 06/26/17 08: 32; Admin Dose 400 MLS/HR; Start 06/23/17 at 21:00 Dextrose/Sodium Chloride (D5-NS) 1,000 ml @ 100 mls/hr Q10H IV Last administered on 06/26/17 10:42; Admin Dose 100 MLS/HR; Start 06/23/17 at 12:30 Eye Lubricant (Artificial Tears Oph) 2 drop QID BOTH EYES Last administered on 06/26/17 08:25; Admin Dose 2 DROP; Start 06/24/17 at 17:00 Topiramate (Topamax Sprinkle) 200 mg BID PO Last administered on 06/26/17 08: 25; Admin Dose 200 MG; Start 06/25/17 at 21:00 Lansoprazole (Prevacid) 30 mg DAILY@06 PO Last administered on 06/26/17 08:31 ; Admin Dose 30 MG; Start 06/26/17 at 08:00 ALEXANDER DARBY Jun 26, 2017 14:26
--- NOTE | 2017-06-26 15:14 | QN ---
Documentation Comment S/p craniotomy for SDH. The patient has been doing well overall but has refractory seizures and fevers of unknown origin. Had an LP today. CT shows no evidence of intracranial fluid collection or other potential infection, etc. Radiology refuses to do MRI in spite of product information suggesting that VNS stimulator is MRI compatible/ safe. the patient is pending transfer to [facility] for higher level of care. I believe this transfer is appropriate given patient's refractory seizures and VNS, etc. SIMRAN LARES MD Jun 26, 2017 15:14
--- NOTE | 2017-06-26 15:44 | PDOCDIS ---
Discharge Instructions CONDITION Patient Condition: Stable HOME CARE INSTRUCTIONS: Special Diet: PUREED ACTIVITY: Activity Restrictions: Slowly Increase Activity FOLLOW UP/APPOINTMENTS Follow-up Plan Follow-up with [facility] neurology service where the patient is being transferred for 24 hour EEG monitoring Also to follow-up with Dr. Yousif Queen at [facility], she will be the admitting physician. We will have culture data and lumbar puncture additional data still being processed at [facility] that will be available for [facility] to follow-up with. ALEXANDER DARBY Jun 26, 2017 15:44
[2017-06-26 16:05] LABS: CSF COLOR PINKISH; CSF#TUBE COUNT TUBE#1; CSF#TUBES REC'D 4
[2017-06-26 16:06] LABS: CSF MN% 17.6 %; CSF PMN% 82.4 %
[2017-06-26 16:17] LABS: CSF COLOR PINKISH; CSF#TUBE COUNT TUBE#4; CSF#TUBES REC'D 4
[2017-06-26 16:18] LABS: CSF MN% 23.6 %; CSF PMN% 76.4 %
[2017-06-26 16:30] LABS: GLUCOSE,CSF 51 mg/dl (50-80)
[2017-06-26] MEDS ORDERED: CEFTRIAXONE 2 GM/50 ML (PMX) 50 ML IVPB SCH (16:30)
[2017-06-26] MEDS ORDERED: VANCOMYCIN IV PER PHARMACY XX SCH ×2 (16:30→17:00)
[2017-06-26 16:40] LABS: CSF MN % (M) 22 %
[2017-06-26 16:42] LABS: CSF MN % (M) 29 %
[2017-06-26] MEDS ORDERED: VANCOMYCIN 1 GM (PMX) 250 ML IVPB SCH (17:00)
[2017-06-26] MEDS: CEFTRIAXONE 2 GM/50 ML (PMX) 50 ML IVPB SCH (17:03)
[2017-06-26] MEDS: FLUCONAZOLE 200 MG/NS (PMX) 100 ML IVPB SCH (17:47)
--- NOTE | 2017-06-26 18:20 | CONS ---
Date/Time of Note Date/Time of Note DATE: 06/26/17 TIME: 18:10 Assessment/Plan Assessment/Plan Chief Complaint/Hosp Course Seizure and fall found to have SDH requiring craniotomy Problems: Additional Assessment/Plan 51 yo female with 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 LP was done and CSF showed WBC of 589 with 76% white cells, Glucose 51, protein 212 suggesting Meningitis. Plan: -isolation -ID on the case -Continue Vanco, Acyclovir, and Ceftraxone -c/w Keppra 1500 mg q12h -c/w VPA 750 mg q8h -increase Topamax to 200 mg BID -seizure precautions -ativan prn 0.1 mg/kg for seizure activity max dose 4 mg at once, max dose 10 mg in 24 hours would benefit to transfer for 24 hour EEG monitoring and higher level of care Consultation Date/Type/Reason Admit Date/Time Jun 15, 2017 at 20:20 Initial Consult Date 06/25/17 Type of Consultation: ID Referring Provider: ALEXANDER DARBY 24 HR Interval Summary Free Text/Dictation Still sleepy. EEG showed generalized bi hemispheric background slowing and right central temporal sharps which could be epileptogenic. Exam/Review of Systems Vital Signs Vitals Vital Signs Date Time Temp Pulse Resp B/P Pulse Ox O2 Delivery O2 Flow Rate FiO2 06/26/17 16:27 90 06/26/17 16:20 101.7 15 134/71 97 06/24/17 20:00 Intake and Output 06/25/17 06/25/17 06/26/17 14:59 22:59 06:59 Intake Total 780 ml 1715.0 ml Output Total 800 ml 1600 ml 3100 ml Balance -800 ml -820 ml -1385.0 ml Exam Constitutional: other (sleepy) Psych: no complaints Head: normocephalic Eyes: EOMI, nl conjunctiva, nl lids ENMT: nl external ears & nose, nl lips & teeth, nl nasal mucosa & septum Neck: non-tender, supple Respiratory: clear to auscultation, normal air movement Cardiovascular: nl pulses, regular rate and rhythm Gastrointestinal: nl liver, spleen, non-tender, soft Extremities: normal pulses Neurological: other (sleepy, does not communicate, limited exam) Results Result Diagram: 06/26/17 0530 06/26/17 0547 Results 24 hrs Laboratory Tests Test 06/25/17 21:02 06/26/17 05:30 06/26/17 05:47 06/26/17 13:22 Urine Color YELLOW Urine Clarity CLOUDY A Urine pH 8.0 Urine Specific [place] 1.014 Urine Ketones NEGATIVE Urine Nitrite NEGATIVE Urine Bilirubin NEGATIVE Urine Urobilinogen 2+ H Urine Leukocyte Esterase NEGATIVE Urine Microscopic RBC 1 Urine Microscopic WBC 0 Urine Mucus FEW A Urine Hemoglobin NEGATIVE Urine Glucose NEGATIVE Urine Total Protein NEGATIVE White Blood Count 10.6 Red Blood Count 3.07 L Hemoglobin 9.5 L Hematocrit 28.0 L Mean Corpuscular Volume 91.2 Mean Corpuscular Hemoglobin 30.9 Mean Corpuscular Hemoglobin Concent 33.9 Red Cell Distribution Width 13.6 Platelet Count 482 H Mean Platelet Volume 9.6 Neutrophils % 53.4 Lymphocytes % 30.8 Monocytes % 13.3 H Eosinophils % 1.0 Basophils % 0.2 Nucleated Red Blood Cells % 0.2 H Neutrophils # (Manual) 6 Lymphocytes # 3.3 H Monocytes # 1.4 H Eosinophils # 0.1 Basophils # 0.0 Nucleated Red Blood Cells # 0.0 Phosphorus Level 4.2 Magnesium Level 2.0 Sodium Level 139 Potassium Level 3.5 Chloride Level 107 Carbon Dioxide Level 26 Anion Gap 10 Blood Urea Nitrogen 11 Creatinine 0.67 Glucose Level 95 Calcium Level 8.7 CSF Tubes Submitted 4 CSF Volume 7.0 CSF Appearance CLOUDY CSF Color PINKISH CSF WBC 589 *H CSF RBC 7 H CSF Cell Count Tube # TUBE#4 CSF Mononuclear Cells % (Auto) 23.6 CSF Mononuclear WBCs 29 CSF Polynuclear WBCs 71 CSF Polynuclear WBCs (%) 76.4 CSF Glucose 51 CSF Lactate Dehydrogenase 669 CSF Total Protein 212 H Medications Medications Current Medications Aripiprazole (Abilify) 10 mg DAILY PO Last administered on 06/26/17 08:23; Admin Dose 10 MG; Start 06/16/17 at 09:00 Cholecalciferol (Vitamin D) 1,000 unit DAILY PO Last administered on 06/26/17 08:24; Admin Dose 1,000 UNIT; Start 06/16/17 at 09:00 Lorazepam (Ativan) 2 mg Q1H PRN IV seizure Last administered on 06/22/17 19:27 ; Admin Dose 2 MG; Start 06/15/17 at 20:30 Acetaminophen (Tylenol Tab) 650 mg Q4H PRN PO pain/fever Last administered on 00:43; Admin Dose 650 MG; Start 06/15/17 at 20:30 Morphine Sulfate (morphine) 2 mg Q2H PRN IV pain Last administered on 22:53; Admin Dose 2 MG; Start 06/15/17 at 20:30 Ondansetron HCl (Zofran Inj) 4 mg Q4H PRN IV nausea; Start 06/15/17 at 20:30 Docusate Sodium (Colace) 100 mg DAILY PRN PO CONSTIPATION Last administered on 06/23/17 08:09; Admin Dose 100 MG; Start 06/16/17 at 10:30 Lactulose (Enulose) 20 gm BID PRN PO CONSTIPATION; Start 06/16/17 at 10:30 IV Flush (NS 10 ml) 10 ml PRN PRN IV IV PROTOCOL; Start 06/16/17 at 15:30 Labetalol HCl (Labetalol) 10 mg Q10M PRN IV ELEVATED BLOOD PRESSURE; Start 06/16 at 17:00 Hydralazine HCl (Apresoline) 10 mg Q4H PRN IV ELEVATED BLOOD PRESSURE; Start at 17:00 Neomycin/ Polymyxin/ Bacitracin (Neosporin Topical Oint) 1 applic BID TOP Last administered on 06/26/17 08:25; Admin Dose 1 APPLIC; Start 06/18/17 at 21:00 Acetaminophen 650 mg 650 mg Q6H PRN [place] FEVER Last administered on 06/25/17 11: 56; Admin Dose 650 MG; Start 06/22/17 at 16:30 Valproate Sodium 750 mg/Sodium Chloride 57.5 ml @ 55 mls/hr Q8 IVPB Last administered on 06/26/17 15:44; Admin Dose 55 MLS/HR; Start 06/23/17 at 14:00 Levetiracetam 100 ml @ 400 mls/hr Q12 IVPB Last administered on 06/26/17 08: 32; Admin Dose 400 MLS/HR; Start 06/23/17 at 21:00 Dextrose/Sodium Chloride (D5-NS) 1,000 ml @ 100 mls/hr Q10H IV Last administered on 06/26/17 10:42; Admin Dose 100 MLS/HR; Start 06/23/17 at 12:30 Eye Lubricant (Artificial Tears Oph) 2 drop QID BOTH EYES Last administered on 06/26/17 08:25; Admin Dose 2 DROP; Start 06/24/17 at 17:00 Topiramate (Topamax Sprinkle) 200 mg BID PO Last administered on 06/26/17 08: 25; Admin Dose 200 MG; Start 06/25/17 at 21:00 Lansoprazole 30 mg 30 mg DAILY@06 PO Last administered on 06/26/17 08:31; Admin Dose 30 MG; Start 06/26/17 at 08:00 Ceftriaxone Sodium 50 ml @ 100 mls/hr Q12H IVPB Last administered on 17:03; Admin Dose 100 MLS/HR; Start 06/26/17 at 17:00 Fluconazole 100 ml @ 100 mls/hr Q24H IVPB Last administered on 06/26/17 17:47 ; Admin Dose 100 MLS/HR; Start 06/26/17 at 17:00 Acyclovir 500 mg/ Sodium Chloride 100 ml @ 100 mls/hr Q8 IVPB ; Start 06/26/17 at 18:00 Vancomycin HCl 1.5 gm/Sodium Chloride 250 ml @ 83.333 mls/ hr NOW IVPB ; Start 06/26/17 at 18:30; Stop 06/26/17 at 21:29 Vancomycin HCl (Vancocin) 250 ml @ 125 mls/hr Q12H IVPB ; Start 06/27/17 at 07: 00 DEDRA BONILLA MD Jun 26, 2017 18:20
[2017-06-26] MEDS: ACYCLOVIR 500 MG in SOD CHLORIDE 0.9% 100 ML IVPB SCH (18:30)
[2017-06-26] MEDS ORDERED: VANCOMYCIN 1.5 GM in SOD CHLORIDE 0.9% 250 ML IVPB SCH (18:30)
[2017-06-27] VITALS (11 sets, daily range): BP systolic 93–110; BP diastolic 54–58; PULSE 65–84; RESP 17–20
[2017-06-27] MEDS: ACYCLOVIR 500 MG in SOD CHLORIDE 0.9% 100 ML IVPB SCH ×4 (05:35→22:11)
[2017-06-27] MEDS: CEFTRIAXONE 2 GM/50 ML (PMX) 50 ML IVPB SCH ×2 (05:35→18:11)
[2017-06-27] MEDS: DEXTROSE 5%-0.9% NACL 1,000 ML IV SCH ×3 (05:36→22:11)
[2017-06-27] MEDS: LANSOPRAZOLE 30 MG CAP PO SCH (05:36)
--- NOTE | 2017-06-27 05:36 | PN ---
DATE: SUBJECTIVE DATA: No acute changes overnight. The patient is lying comfortably in bed. OBJECTIVE DATA: VITAL SIGNS: She is afebrile with a temperature of 101.7, pulse 85, respirations 15, blood pressure 134/71, and saturation 97 percent on room air. LABORATORY: WBC 10.6, H and H 9.5 and 28, platelets 482, neutrophils 53.4, BUN 11, and creatinine 0.67. MICROBIOLOGY: Blood and urine cultures remain negative. DIAGNOSTIC DATA: Chest x-ray on June 25 revealed stable retrocardiac capacity. INDWELLINGS: Right-sided PICC line placed on June 16 and Chopra catheter. PHYSICAL EXAMINATION: GENERAL: This is a ill-appearing middle-aged woman who is in no distress. HEENT: Head atraumatic, normocephalic. Sclerae anicteric. Buccal mucosa dry. NECK: Supple. CHEST: Chest rise symmetrical. Breath sounds diminished at the bases. HEART: S1, S2. ABDOMEN: Soft, bowel sounds present. EXTREMITIES: Without cyanosis. ASSESSMENT: 1. Persistent fevers. So far cultures have been negative, possibly central. 2. Status post craniotomy for subdural hematoma (SDH). 3. Ongoing seizures. 4. Developmental delay. PLAN: The patient remains stable. She is status post a lumbar puncture done this morning. Pending CSF cultures and cytology. We will give recommendations once cultures are back. Dictated By: Rhiannon Henriquez NP /[email or web address] /Document#: [id number]
[2017-06-27] MEDS: VALPROATE INJ 750 MG in SOD CHLORIDE 0.9% 50 ML IVPB SCH ×3 (05:37→22:09)
[2017-06-27] MEDS ORDERED: VANCOMYCIN 1 GM in NS 250 ML IVPB SCH (07:00)
--- NOTE | 2017-06-27 08:41 | PRO ---
DATE OF PROCEDURE: 06/25/2017 INDICATION: This is a 51-year-old woman with history of refractory epilepsy. She is on 3 antiepileptic medications and also a VNS stimulator. She was admitted following a fall and sustaining subdural hematoma, and underwent surgery. CURRENT MEDICATIONS: Topiramate, Keppra, valproate. TECHNIQUE: Procedure utilizing a 16 channel EEG machine scalp electrodes were applied. In accordance with the International 10/20 system, scalp to scalp and scalp to ear montages were displayed electrical impedances were measured and reported. DESCRIPTION OF PROCEDURE: Description during a resting state posterior dominant rhythm of about 6-7 hertz were seen bihemispherically. Photic stimulation had a good response. Hyperventilation was not performed. The right central temporal shocks was noted at times during the tracing. INTERPRETATION: This is an abnormal EEG due to generalized bihemispheric background slowing with the right central temporal shocks which are epileptogenic, and is consistent with encephalopathy with seizures. Please correlate these findings with patient's clinical picture. Dictated By: Dari Angela MD /[email or web address] /Document#: [id number]
[2017-06-27] MEDS: METOCLOPRAMIDE 10 MG INJ IV SCH ×3 (09:58→18:12)
[2017-06-27] MEDS: ARIPIPRAZOLE 10 MG TAB PO SCH (09:58)
[2017-06-27] MEDS: TOPIRAMATE SPRINKLE 25 MG CAP PO SCH ×2 (09:58→21:00)
[2017-06-27] MEDS: CHOLECALCIFEROL 1,000 UNIT TAB PO SCH (09:58)
[2017-06-27] MEDS: LEVETIRACETAM 1500 MG (PMX) 100 ML IVPB SCH ×2 (09:59→22:08)
[2017-06-27] MEDS: ARTIFICIAL TEARS 15 ML OPH BOTH EYES SCH ×4 (09:59→22:10)
[2017-06-27] MEDS: NEOMYC/POLYMYX/BACIT 30 GM OINT TOP SCH ×2 (09:59→22:09)
--- NOTE | 2017-06-27 13:53 | CONS ---
Date/Time of Note Date/Time of Note DATE: 06/27/17 TIME: 13:50 Assessment/Plan Assessment/Plan Chief Complaint/Hosp Course Seizure and fall found to have SDH requiring craniotomy Problems: Additional Assessment/Plan 51 yo female with 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 LP was done and CSF showed WBC of 589 with 76% white cells, Glucose 51, protein 212 suggesting Meningitis. Plan: -isolation -ID on the case -Continue Vanco, Acyclovir, and Ceftraxone -c/w Keppra 1500 mg q12h -c/w VPA 750 mg q8h -increase Topamax to 200 mg BID -seizure precautions -ativan prn 0.1 mg/kg for seizure activity max dose 4 mg at once, max dose 10 mg in 24 hours would benefit to transfer for 24 hour EEG monitoring and higher level of care Consultation Date/Type/Reason Admit Date/Time Jun 15, 2017 at 20:20 Initial Consult Date 06/25/17 Type of Consultation: ID Referring Provider: ALEXANDER DARBY 24 HR Interval Summary Free Text/Dictation Improving. Awake and alert. Following simple commands Exam/Review of Systems Vital Signs Vitals Vital Signs Date Time Temp Pulse Resp B/P Pulse Ox O2 Delivery O2 Flow Rate FiO2 06/27/17 12:37 72 06/27/17 12:03 99.5 17 107/58 100 06/26/17 21:20 Room Air 06/24/17 20:00 Intake and Output 06/26/17 06/26/17 06/27/17 15:00 23:00 07:00 Intake Total 100 ml 1457 ml 1685.0 ml Output Total 1300 ml 3650 ml Balance 100 ml 157 ml -1965.0 ml Exam Constitutional: alert Psych: nl mood/affect, no complaints Head: normocephalic Eyes: EOMI, nl conjunctiva, nl lids ENMT: mucosa pink and moist, nl external ears & nose, nl lips & teeth, nl nasal mucosa & septum Neck: non-tender, supple Respiratory: clear to auscultation, normal air movement Cardiovascular: nl pulses, regular rate and rhythm Gastrointestinal: nl liver, spleen, non-tender, soft Neurological: other (Limited exam, does not follow commands but awake and alert ) Results Result Diagram: 06/26/17 0530 06/26/17 0547 Medications Medications Current Medications Aripiprazole (Abilify) 10 mg DAILY PO Last administered on 06/27/17 09:58; Admin Dose 10 MG; Start 06/16/17 at 09:00 Cholecalciferol (Vitamin D) 1,000 unit DAILY PO Last administered on 06/27/17 09:58; Admin Dose 1,000 UNIT; Start 06/16/17 at 09:00 Lorazepam (Ativan) 2 mg Q1H PRN IV seizure Last administered on 06/22/17 19:27 ; Admin Dose 2 MG; Start 06/15/17 at 20:30 Acetaminophen (Tylenol Tab) 650 mg Q4H PRN PO pain/fever Last administered on 20:46; Admin Dose 650 MG; Start 06/15/17 at 20:30 Morphine Sulfate (morphine) 2 mg Q2H PRN IV pain Last administered on 22:53; Admin Dose 2 MG; Start 06/15/17 at 20:30 Ondansetron HCl (Zofran Inj) 4 mg Q4H PRN IV nausea; Start 06/15/17 at 20:30 Docusate Sodium (Colace) 100 mg DAILY PRN PO CONSTIPATION Last administered on 06/23/17 08:09; Admin Dose 100 MG; Start 06/16/17 at 10:30 Lactulose (Enulose) 20 gm BID PRN PO CONSTIPATION; Start 06/16/17 at 10:30 IV Flush (NS 10 ml) 10 ml PRN PRN IV IV PROTOCOL; Start 06/16/17 at 15:30 Labetalol HCl (Labetalol) 10 mg Q10M PRN IV ELEVATED BLOOD PRESSURE; Start 06/16 at 17:00 Hydralazine HCl (Apresoline) 10 mg Q4H PRN IV ELEVATED BLOOD PRESSURE; Start at 17:00 Neomycin/ Polymyxin/ Bacitracin (Neosporin Topical Oint) 1 applic BID TOP Last administered on 06/27/17 09:59; Admin Dose 1 APPLIC; Start 06/18/17 at 21:00 Acetaminophen 650 mg 650 mg Q6H PRN [place] FEVER Last administered on 06/25/17 11: 56; Admin Dose 650 MG; Start 06/22/17 at 16:30 Valproate Sodium 750 mg/Sodium Chloride 57.5 ml @ 55 mls/hr Q8 IVPB Last administered on 06/27/17 05:37; Admin Dose 55 MLS/HR; Start 06/23/17 at 14:00 Levetiracetam 100 ml @ 400 mls/hr Q12 IVPB Last administered on 06/27/17 09: 59; Admin Dose 400 MLS/HR; Start 06/23/17 at 21:00 Dextrose/Sodium Chloride (D5-NS) 1,000 ml @ 100 mls/hr Q10H IV Last administered on 06/27/17 05:36; Admin Dose 100 MLS/HR; Start 06/23/17 at 12:30 Eye Lubricant (Artificial Tears Oph) 2 drop QID BOTH EYES Last administered on 06/27/17 13:28; Admin Dose 2 DROP; Start 06/24/17 at 17:00 Topiramate (Topamax Sprinkle) 200 mg BID PO Last administered on 06/27/17 09: 58; Admin Dose 200 MG; Start 06/25/17 at 21:00 Lansoprazole 30 mg 30 mg DAILY@06 PO Last administered on 06/27/17 05:36; Admin Dose 30 MG; Start 06/26/17 at 08:00 Ceftriaxone Sodium 50 ml @ 100 mls/hr Q12H IVPB Last administered on 05:35; Admin Dose 100 MLS/HR; Start 06/26/17 at 17:00 Fluconazole 100 ml @ 100 mls/hr Q24H IVPB Last administered on 06/26/17 17:47 ; Admin Dose 100 MLS/HR; Start 06/26/17 at 17:00 Acyclovir 500 mg/ Sodium Chloride 100 ml @ 100 mls/hr Q8 IVPB Last administered on 06/27/17 05:37; Admin Dose 100 MLS/HR; Start 06/26/17 at 18:00 Vancomycin HCl (Vancocin) 250 ml @ 125 mls/hr Q12H IVPB ; Start 06/27/17 at 20: 00 Miscellaneous Information (*Rx Drug Level Order Reminder*) VANCOMYCIN TROUGH AT 0700 ONCE ONCE XX ; Start 06/28/17 at 07:00; Stop 06/28/17 at 07:01 DEDRA BONILLA MD Jun 27, 2017 13:53
[2017-06-27] MEDS: FLUCONAZOLE 200 MG/NS (PMX) 100 ML IVPB SCH (18:11)
--- NOTE | 2017-06-27 20:59 | PN ---
Date/Time of Note Date/Time of Note DATE: 06/27/17 TIME: 20:48 Assessment/Plan VTE Prophylaxis VTE Prophylaxis Intervention: SCD's Lines/Catheters IV Catheter Type (from Nrs): PICC Line Central line still needed: No Urinary Cath still in place: Yes Reason Cath still needed: pres ulcer contaminated by urine Assessment/Plan Assessment/Plan 51-year-old female with: 1. Right subdural hematoma, status post subdural hematoma drainage POD#10 with now removal of subdural drain 06/21 Patient still encephalopathic, lethargic, no active seizures reported since further increase of her antiseizure medications again yesterday. However patient still having episodes of fevers once a day now up to 102 for the past 5 days at least, All cultures negative so far, and also all cultures were redrawn and sent yesterday. Appreciate recommendations from infectious disease, for now no antibiotics. Still white blood cell count within normal, hemodynamically stable. Repeat CAT scan of the head stable. Neurology and neurosurgery agreeable with transfer to facility with 24-hour EEG capabilities. I will follow up with infectious disease today in order to review the current infectious workup. For now no antibiotics recommended. We are attempting transfer to a 24 hour EEG capable facility, [facility], today if bed available and patient stable. 2. Seizure disorder, refractory to medications apparently: Appreciate recommendations from neurology , continue current medication, EEG was done yesterday, reading pending. Repeat CAT scan of the head yesterday, stable. Status post vagal nerve stimulator. Patient will have to follow-up with a tertiary neurology regarding adjustment of her vagal nerve stimulator to help with seizures refractory to medications. For now due to the fact that she is limited by her IPA to the network there contracted to, we are attempting a transfer to [facility] where continuous EEG is available. 3. Developmental delay: Close neurological monitoring given acute traumatic head injury with right subdural hematoma. Continue outpatient medications. 4. GERD: Continue Protonix 5. Chronic constipation: Continue outpatient regimen as well as patient able to take p.o. Prophylaxis: Protonix for GI prophylaxis, SCDs to lower extremity for DVT prophylaxis Disposition: Status post right subdural hematoma evacuation, drain removed 6 days ago. Lumbar puncture done and results pending, follow-up infectious disease recommendations, transfer to [facility] pending this evening. Subjective 24 Hr Interval Summary Free Text/Dictation The patient is resting comfortably today. Arousable, but somulent. Still with low-grade temperatures. Exam/Review of Systems Vital Signs Vitals Vital Signs Date Time Temp Pulse Resp B/P Pulse Ox O2 Delivery O2 Flow Rate FiO2 06/27/17 20:03 100.1 86 18 110/55 99 06/26/17 21:20 Room Air 06/24/17 20:00 Intake and Output 06/26/17 06/26/17 06/27/17 15:00 23:00 07:00 Intake Total 100 ml 1457 ml 1685.0 ml Output Total 1300 ml 3650 ml Balance 100 ml 157 ml -1965.0 ml Exam Psych: no complaints Head: other (incision site C/D/I) Eyes: nl conjunctiva ENMT: nl external ears & nose Neck: supple Respiratory: clear to auscultation Cardiovascular: regular rate and rhythm Gastrointestinal: soft Extremities: normal pulses Results Result Diagram: 06/26/17 0530 06/26/17 0547 Medications Medications Current Medications Aripiprazole (Abilify) 10 mg DAILY PO Last administered on 06/27/17 09:58; Admin Dose 10 MG; Start 06/16/17 at 09:00 Cholecalciferol (Vitamin D) 1,000 unit DAILY PO Last administered on 06/27/17 09:58; Admin Dose 1,000 UNIT; Start 06/16/17 at 09:00 Lorazepam (Ativan) 2 mg Q1H PRN IV seizure Last administered on 06/22/17 19:27 ; Admin Dose 2 MG; Start 06/15/17 at 20:30 Acetaminophen (Tylenol Tab) 650 mg Q4H PRN PO pain/fever Last administered on 20:46; Admin Dose 650 MG; Start 06/15/17 at 20:30 Morphine Sulfate (morphine) 2 mg Q2H PRN IV pain Last administered on 22:53; Admin Dose 2 MG; Start 06/15/17 at 20:30 Ondansetron HCl (Zofran Inj) 4 mg Q4H PRN IV nausea; Start 06/15/17 at 20:30 Docusate Sodium (Colace) 100 mg DAILY PRN PO CONSTIPATION Last administered on 06/23/17 08:09; Admin Dose 100 MG; Start 06/16/17 at 10:30 Lactulose (Enulose) 20 gm BID PRN PO CONSTIPATION; Start 06/16/17 at 10:30 IV Flush (NS 10 ml) 10 ml PRN PRN IV IV PROTOCOL; Start 06/16/17 at 15:30 Labetalol HCl (Labetalol) 10 mg Q10M PRN IV ELEVATED BLOOD PRESSURE; Start 06/16 at 17:00 Hydralazine HCl (Apresoline) 10 mg Q4H PRN IV ELEVATED BLOOD PRESSURE; Start at 17:00 Neomycin/ Polymyxin/ Bacitracin (Neosporin Topical Oint) 1 applic BID TOP Last administered on 06/27/17 09:59; Admin Dose 1 APPLIC; Start 06/18/17 at 21:00 Acetaminophen 650 mg 650 mg Q6H PRN [place] FEVER Last administered on 06/25/17 11: 56; Admin Dose 650 MG; Start 06/22/17 at 16:30 Valproate Sodium 750 mg/Sodium Chloride 57.5 ml @ 55 mls/hr Q8 IVPB Last administered on 06/27/17 14:07; Admin Dose 55 MLS/HR; Start 06/23/17 at 14:00 Levetiracetam 100 ml @ 400 mls/hr Q12 IVPB Last administered on 06/27/17 09: 59; Admin Dose 400 MLS/HR; Start 06/23/17 at 21:00 Dextrose/Sodium Chloride (D5-NS) 1,000 ml @ 100 mls/hr Q10H IV Last administered on 06/27/17 05:36; Admin Dose 100 MLS/HR; Start 06/23/17 at 12:30 Eye Lubricant (Artificial Tears Oph) 2 drop QID BOTH EYES Last administered on 06/27/17 18:11; Admin Dose 2 DROP; Start 06/24/17 at 17:00 Topiramate (Topamax Sprinkle) 200 mg BID PO Last administered on 06/27/17 09: 58; Admin Dose 200 MG; Start 06/25/17 at 21:00 Lansoprazole 30 mg 30 mg DAILY@06 PO Last administered on 06/27/17 05:36; Admin Dose 30 MG; Start 06/26/17 at 08:00 Ceftriaxone Sodium 50 ml @ 100 mls/hr Q12H IVPB Last administered on 18:11; Admin Dose 100 MLS/HR; Start 06/26/17 at 17:00 Fluconazole 100 ml @ 100 mls/hr Q24H IVPB Last administered on 06/27/17 18:11 ; Admin Dose 100 MLS/HR; Start 06/26/17 at 17:00 Acyclovir 500 mg/ Sodium Chloride 100 ml @ 100 mls/hr Q8 IVPB Last administered on 06/27/17 14:06; Admin Dose 100 MLS/HR; Start 06/26/17 at 18:00 Vancomycin HCl (Vancocin) 250 ml @ 125 mls/hr Q12H IVPB ; Start 06/27/17 at 20: 00 Miscellaneous Information (*Rx Drug Level Order Reminder*) VANCOMYCIN TROUGH AT 0700 ONCE ONCE XX ; Start 06/28/17 at 07:00; Stop 06/28/17 at 07:01 EMERSON REYNOSO MD Jun 27, 2017 20:58
[2017-06-27] MEDS: VANCOMYCIN 1 GM in NS 250 ML IVPB SCH (22:10)
[2017-06-27] MEDS: ACETAMINOPHEN 325 MG TAB PO PRN (23:31)
[2017-06-28] VITALS (14 sets, daily range): BP systolic 97–143; BP diastolic 49–81; PULSE 69–94; RESP 16–20
[2017-06-28] MEDS: LANSOPRAZOLE 30 MG CAP PO SCH (06:24)
[2017-06-28] MEDS: CEFTRIAXONE 2 GM/50 ML (PMX) 50 ML IVPB SCH ×2 (06:25→18:21)
[2017-06-28] MEDS: VALPROATE INJ 750 MG in SOD CHLORIDE 0.9% 50 ML IVPB SCH ×3 (06:25→21:22)
[2017-06-28] MEDS: ACYCLOVIR 500 MG in SOD CHLORIDE 0.9% 100 ML IVPB SCH ×3 (06:25→21:22)
[2017-06-28 07:58] LABS: CREATININE 0.58 mg/dl (0.44-1.00)
[2017-06-28] MEDS: METOCLOPRAMIDE 10 MG INJ IV SCH ×3 (09:47→18:21)
[2017-06-28] MEDS: VANCOMYCIN 1 GM in NS 250 ML IVPB SCH ×2 (09:47→21:21)
[2017-06-28] MEDS: TOPIRAMATE SPRINKLE 25 MG CAP PO SCH ×2 (09:48→21:00)
[2017-06-28] MEDS: ARIPIPRAZOLE 10 MG TAB PO SCH (09:48)
[2017-06-28] MEDS: NEOMYC/POLYMYX/BACIT 30 GM OINT TOP SCH ×2 (09:48→20:40)
[2017-06-28] MEDS: CHOLECALCIFEROL 1,000 UNIT TAB PO SCH (09:48)
[2017-06-28] MEDS: ARTIFICIAL TEARS 15 ML OPH BOTH EYES SCH ×4 (09:53→20:40)
[2017-06-28] MEDS: LEVETIRACETAM 1500 MG (PMX) 100 ML IVPB SCH ×2 (09:53→20:41)
--- NOTE | 2017-06-28 12:54 | PN ---
Date/Time of Note Date/Time of Note DATE: 06/28/17 TIME: 12:45 Assessment/Plan VTE Prophylaxis VTE Prophylaxis Intervention: SCD's Lines/Catheters IV Catheter Type (from Nrs): PICC Line Central line still needed: No Urinary Cath still in place: Yes Reason Cath still needed: pres ulcer contaminated by urine Assessment/Plan Assessment/Plan 51-year-old female with: 1. Right subdural hematoma, status post subdural hematoma drainage POD#11. She continues to have seizures. She remains encephalopathic and lethargic. All cultures negative so far. Appreciate recommendations from infectious disease. We will likely discontinue isolation precautions tomorrow. Still white blood cell count within normal, hemodynamically stable. I will recheck a CBC in the morning. Repeat CAT scan of the head stable. I will follow up with infectious disease today in order to review the current infectious workup. 2. Seizure disorder, refractory to medications apparently: Appreciate recommendations from neurology , continue current medication. Repeat CAT scan of the head, stable. Status post vagal nerve stimulator. Patient will have to follow-up with a tertiary neurology regarding adjustment of her vagal nerve stimulator to help with seizures refractory to medications. For now due to the fact that she is limited by her IPA to the network there contracted to, we are attempting a transfer to [facility] where continuous EEG is available. 3. Developmental delay: Close neurological monitoring given acute traumatic head injury with right subdural hematoma. Continue outpatient medications. 4. GERD: Continue Protonix 5. Chronic constipation: Continue outpatient regimen as well as patient able to take p.o. Prophylaxis: Protonix for GI prophylaxis, SCDs to lower extremity for DVT prophylaxis Disposition: Status post right subdural hematoma evacuation, drain removed 8 days ago. Lumbar puncture done and results pending, follow-up infectious disease recommendations. Subjective 24 Hr Interval Summary Free Text/Dictation The patient was noted to have one seizure last night and another one this morning. Her seizure lasted approximately 20 seconds. She was slightly confused and slow to answer in this postictal state. Subjective hx not possible: pt non-verbal, other (Maintains eye contact but does not answer questions.) Constitutional: disoriented Eyes: no complaints Exam/Review of Systems Vital Signs Vitals Vital Signs Date Time Temp Pulse Resp B/P Pulse Ox O2 Delivery O2 Flow Rate FiO2 06/28/17 08:41 71 06/28/17 07:35 98.3 16 103/62 95 06/26/17 21:20 Room Air 06/24/17 20:00 Intake and Output 06/27/17 06/27/17 06/28/17 15:00 23:00 07:00 Intake Total 500 ml 250 ml Output Total 1400 ml 2300 ml Balance -900 ml -2050 ml Exam Constitutional: non-verbal Psych: confusion Head: normocephalic, other ([place] appear clean dry and intact.) Eyes: nl conjunctiva ENMT: nl external ears & nose Neck: supple Respiratory: clear to auscultation Cardiovascular: regular rate and rhythm Gastrointestinal: soft Extremities: normal pulses Results Result Diagram: 06/26/17 0530 06/28/17 0700 Results 24 hrs Laboratory Tests Test 06/28/17 07:00 Blood Urea Nitrogen 10 Creatinine 0.58 Vancomycin Level Trough 13.6 Medications Medications Current Medications Aripiprazole (Abilify) 10 mg DAILY PO Last administered on 06/28/17 09:48; Admin Dose 10 MG; Start 06/16/17 at 09:00 Cholecalciferol (Vitamin D) 1,000 unit DAILY PO Last administered on 06/28/17 09:48; Admin Dose 1,000 UNIT; Start 06/16/17 at 09:00 Lorazepam (Ativan) 2 mg Q1H PRN IV seizure Last administered on 06/22/17 19:27 ; Admin Dose 2 MG; Start 06/15/17 at 20:30 Acetaminophen (Tylenol Tab) 650 mg Q4H PRN PO pain/fever Last administered on 23:31; Admin Dose 650 MG; Start 06/15/17 at 20:30 Morphine Sulfate (morphine) 2 mg Q2H PRN IV pain Last administered on 22:53; Admin Dose 2 MG; Start 06/15/17 at 20:30 Ondansetron HCl (Zofran Inj) 4 mg Q4H PRN IV nausea; Start 06/15/17 at 20:30 Docusate Sodium (Colace) 100 mg DAILY PRN PO CONSTIPATION Last administered on 06/23/17 08:09; Admin Dose 100 MG; Start 06/16/17 at 10:30 Lactulose (Enulose) 20 gm BID PRN PO CONSTIPATION; Start 06/16/17 at 10:30 IV Flush (NS 10 ml) 10 ml PRN PRN IV IV PROTOCOL; Start 06/16/17 at 15:30 Labetalol HCl (Labetalol) 10 mg Q10M PRN IV ELEVATED BLOOD PRESSURE; Start 06/16 at 17:00 Hydralazine HCl (Apresoline) 10 mg Q4H PRN IV ELEVATED BLOOD PRESSURE; Start at 17:00 Neomycin/ Polymyxin/ Bacitracin (Neosporin Topical Oint) 1 applic BID TOP Last administered on 06/28/17 09:48; Admin Dose 1 APPLIC; Start 06/18/17 at 21:00 Acetaminophen 650 mg 650 mg Q6H PRN [place] FEVER Last administered on 06/25/17 11: 56; Admin Dose 650 MG; Start 06/22/17 at 16:30 Valproate Sodium 750 mg/Sodium Chloride 57.5 ml @ 55 mls/hr Q8 IVPB Last administered on 06/28/17 06:25; Admin Dose 55 MLS/HR; Start 06/23/17 at 14:00 Levetiracetam 100 ml @ 400 mls/hr Q12 IVPB Last administered on 06/28/17 09: 53; Admin Dose 400 MLS/HR; Start 06/23/17 at 21:00 Dextrose/Sodium Chloride (D5-NS) 1,000 ml @ 100 mls/hr Q10H IV Last administered on 06/27/17 22:11; Admin Dose 100 MLS/HR; Start 06/23/17 at 12:30 Eye Lubricant (Artificial Tears Oph) 2 drop QID BOTH EYES Last administered on 06/28/17 09:53; Admin Dose 2 DROP; Start 06/24/17 at 17:00 Topiramate (Topamax Sprinkle) 200 mg BID PO Last administered on 06/28/17 09: 48; Admin Dose 200 MG; Start 06/25/17 at 21:00 Lansoprazole 30 mg 30 mg DAILY@06 PO Last administered on 06/28/17 06:24; Admin Dose 30 MG; Start 06/26/17 at 08:00 Ceftriaxone Sodium 50 ml @ 100 mls/hr Q12H IVPB Last administered on 06:25; Admin Dose 100 MLS/HR; Start 06/26/17 at 17:00 Fluconazole 100 ml @ 100 mls/hr Q24H IVPB Last administered on 06/27/17 18:11 ; Admin Dose 100 MLS/HR; Start 06/26/17 at 17:00 Acyclovir 500 mg/ Sodium Chloride 100 ml @ 100 mls/hr Q8 IVPB Last administered on 06/28/17 06:25; Admin Dose 100 MLS/HR; Start 06/26/17 at 18:00 Vancomycin HCl (Vancocin) 250 ml @ 125 mls/hr Q12H IVPB Last administered on 09:47; Admin Dose 125 MLS/HR; Start 06/27/17 at 20:00 EMERSON REYNOSO MD Jun 28, 2017 12:53
[2017-06-28] MEDS: DEXTROSE 5%-0.9% NACL 1,000 ML IV SCH ×2 (12:57→21:22)
--- NOTE | 2017-06-28 13:56 | CONS ---
Date/Time of Note Date/Time of Note DATE: 06/28/17 TIME: 13:54 Assessment/Plan Assessment/Plan Chief Complaint/Hosp Course Seizure and fall found to have SDH requiring craniotomy Problems: Additional Assessment/Plan 51 yo female with 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 LP was done and CSF showed WBC of 589 with 76% white cells, Glucose 51, protein 212 suggesting Meningitis. Plan: -isolation -ID on the case -Continue Vanco, Acyclovir, and Ceftraxone -c/w Keppra 1500 mg q12h -c/w VPA 750 mg q8h -increase Topamax to 200 mg BID -seizure precautions -ativan prn 0.1 mg/kg for seizure activity max dose 4 mg at once, max dose 10 mg in 24 hours would benefit to transfer for 24 hour EEG monitoring and higher level of care Consultation Date/Type/Reason Admit Date/Time Jun 15, 2017 at 20:20 Initial Consult Date 06/25/17 Type of Consultation: ID Referring Provider: ALEXANDER DARBY 24 HR Interval Summary Free Text/Dictation As per patient's caregiver who is present in the room she had an episode of possible seizure activity this morning. Exam/Review of Systems Vital Signs Vitals Vital Signs Date Time Temp Pulse Resp B/P Pulse Ox O2 Delivery O2 Flow Rate FiO2 06/28/17 13:39 87 06/28/17 07:35 98.3 16 103/62 95 06/26/17 21:20 Room Air 06/24/17 20:00 Intake and Output 06/27/17 06/27/17 06/28/17 15:00 23:00 07:00 Intake Total 500 ml 250 ml Output Total 1400 ml 2300 ml Balance -900 ml -2050 ml Exam Constitutional: alert, well developed Psych: nl mood/affect, no complaints Head: atraumatic, normocephalic Eyes: EOMI, nl conjunctiva, nl lids, nl sclera ENMT: mucosa pink and moist, nl external ears & nose, nl lips & teeth Neck: non-tender, supple Respiratory: clear to auscultation, normal air movement Cardiovascular: nl pulses, regular rate and rhythm Gastrointestinal: nl liver, spleen, non-tender, soft Extremities: normal pulses (Alert and awake, does not follow simple commands, limited exam) Results Result Diagram: 06/26/17 0530 06/28/17 0700 Results 24 hrs Laboratory Tests Test 06/28/17 07:00 Blood Urea Nitrogen 10 Creatinine 0.58 Vancomycin Level Trough 13.6 Medications Medications Current Medications Aripiprazole (Abilify) 10 mg DAILY PO Last administered on 06/28/17 09:48; Admin Dose 10 MG; Start 06/16/17 at 09:00 Cholecalciferol (Vitamin D) 1,000 unit DAILY PO Last administered on 06/28/17 09:48; Admin Dose 1,000 UNIT; Start 06/16/17 at 09:00 Lorazepam (Ativan) 2 mg Q1H PRN IV seizure Last administered on 06/22/17 19:27 ; Admin Dose 2 MG; Start 06/15/17 at 20:30 Acetaminophen (Tylenol Tab) 650 mg Q4H PRN PO pain/fever Last administered on 23:31; Admin Dose 650 MG; Start 06/15/17 at 20:30 Morphine Sulfate (morphine) 2 mg Q2H PRN IV pain Last administered on 22:53; Admin Dose 2 MG; Start 06/15/17 at 20:30 Ondansetron HCl (Zofran Inj) 4 mg Q4H PRN IV nausea; Start 06/15/17 at 20:30 Docusate Sodium (Colace) 100 mg DAILY PRN PO CONSTIPATION Last administered on 06/23/17 08:09; Admin Dose 100 MG; Start 06/16/17 at 10:30 Lactulose (Enulose) 20 gm BID PRN PO CONSTIPATION; Start 06/16/17 at 10:30 IV Flush (NS 10 ml) 10 ml PRN PRN IV IV PROTOCOL; Start 06/16/17 at 15:30 Labetalol HCl (Labetalol) 10 mg Q10M PRN IV ELEVATED BLOOD PRESSURE; Start 06/16 at 17:00 Hydralazine HCl (Apresoline) 10 mg Q4H PRN IV ELEVATED BLOOD PRESSURE; Start at 17:00 Neomycin/ Polymyxin/ Bacitracin (Neosporin Topical Oint) 1 applic BID TOP Last administered on 06/28/17 09:48; Admin Dose 1 APPLIC; Start 06/18/17 at 21:00 Acetaminophen 650 mg 650 mg Q6H PRN [place] FEVER Last administered on 06/25/17 11: 56; Admin Dose 650 MG; Start 06/22/17 at 16:30 Valproate Sodium 750 mg/Sodium Chloride 57.5 ml @ 55 mls/hr Q8 IVPB Last administered on 06/28/17 06:25; Admin Dose 55 MLS/HR; Start 06/23/17 at 14:00 Levetiracetam 100 ml @ 400 mls/hr Q12 IVPB Last administered on 06/28/17 09: 53; Admin Dose 400 MLS/HR; Start 06/23/17 at 21:00 Dextrose/Sodium Chloride (D5-NS) 1,000 ml @ 100 mls/hr Q10H IV Last administered on 06/28/17 12:57; Admin Dose 100 MLS/HR; Start 06/23/17 at 12:30 Eye Lubricant (Artificial Tears Oph) 2 drop QID BOTH EYES Last administered on 06/28/17 09:53; Admin Dose 2 DROP; Start 06/24/17 at 17:00 Topiramate (Topamax Sprinkle) 200 mg BID PO Last administered on 06/28/17 09: 48; Admin Dose 200 MG; Start 06/25/17 at 21:00 Lansoprazole 30 mg 30 mg DAILY@06 PO Last administered on 06/28/17 06:24; Admin Dose 30 MG; Start 06/26/17 at 08:00 Ceftriaxone Sodium 50 ml @ 100 mls/hr Q12H IVPB Last administered on 06:25; Admin Dose 100 MLS/HR; Start 06/26/17 at 17:00 Fluconazole 100 ml @ 100 mls/hr Q24H IVPB Last administered on 06/27/17 18:11 ; Admin Dose 100 MLS/HR; Start 06/26/17 at 17:00 Acyclovir 500 mg/ Sodium Chloride 100 ml @ 100 mls/hr Q8 IVPB Last administered on 06/28/17 06:25; Admin Dose 100 MLS/HR; Start 06/26/17 at 18:00 Vancomycin HCl (Vancocin) 250 ml @ 125 mls/hr Q12H IVPB Last administered on 09:47; Admin Dose 125 MLS/HR; Start 06/27/17 at 20:00 DEDRA BONILLA MD Jun 28, 2017 13:56
--- NOTE | 2017-06-28 14:19 | CONS ---
Date/Time of Note Date/Time of Note DATE: 06/28/17 TIME: 14:15 Assessment/Plan Assessment/Plan Chief Complaint/Hosp Course SUBJECTIVE DATA: No acute changes overnight. The patient is awake, slow responses, still with low grade temps, s/p sz in am, looks comfortable INDWELLINGS: Right-sided PICC line placed on June 16 and Chopra catheter. Abx: Vanco, Rocephin, Acyclovir, Diflucan PHYSICAL EXAMINATION: GENERAL: This is a ill-appearing middle-aged woman who is in no distress. HEENT: Head atraumatic, normocephalic. Sclerae anicteric. Buccal mucosa dry. NECK: Supple. CHEST: Chest rise symmetrical. Breath sounds diminished at the bases. HEART: S1, S2. ABDOMEN: Soft, bowel sounds present. EXTREMITIES: Without cyanosis. ASSESSMENT: 1. Acute meningitis, likely bacterial==> cx pending 2. Status post craniotomy for subdural hematoma (SDH). 3. Ongoing seizures. 4. Developmental delay. PLAN: The patient remains stable. Neurology follows, continue abx, f/u final work up DW staff/family at bedside TYLER Cortez Problems: Consultation Date/Type/Reason Admit Date/Time Jun 15, 2017 at 20:20 Initial Consult Date 06/25/17 Type of Consultation: ID Referring Provider: ALEXANDER DARBY Exam/Review of Systems Vital Signs Vitals Vital Signs Date Time Temp Pulse Resp B/P Pulse Ox O2 Delivery O2 Flow Rate FiO2 06/28/17 13:39 87 06/28/17 07:35 98.3 16 103/62 95 06/26/17 21:20 Room Air 06/24/17 20:00 Intake and Output 06/27/17 06/27/17 06/28/17 15:00 23:00 07:00 Intake Total 500 ml 250 ml Output Total 1400 ml 2300 ml Balance -900 ml -2050 ml Results Result Diagram: 06/26/17 0530 06/28/17 0700 Results 24 hrs Laboratory Tests Test 06/28/17 07:00 Blood Urea Nitrogen 10 Creatinine 0.58 Vancomycin Level Trough 13.6 Medications Medications Current Medications Aripiprazole (Abilify) 10 mg DAILY PO Last administered on 06/28/17t 09:48; Admin Dose 10 MG; Start 06/16/17 at 09:00 Cholecalciferol (Vitamin D) 1,000 unit DAILY PO Last administered on 06/28/17 09:48; Admin Dose 1,000 UNIT; Start 06/16/17 at 09:00 Lorazepam (Ativan) 2 mg Q1H PRN IV seizure Last administered on 06/22/17 19:27 ; Admin Dose 2 MG; Start 06/15/17 at 20:30 Acetaminophen (Tylenol Tab) 650 mg Q4H PRN PO pain/fever Last administered on 23:31; Admin Dose 650 MG; Start 06/15/17 at 20:30 Morphine Sulfate (morphine) 2 mg Q2H PRN IV pain Last administered on 22:53; Admin Dose 2 MG; Start 06/15/17 at 20:30 Ondansetron HCl (Zofran Inj) 4 mg Q4H PRN IV nausea; Start 06/15/17 at 20:30 Docusate Sodium (Colace) 100 mg DAILY PRN PO CONSTIPATION Last administered on 06/23/17 08:09; Admin Dose 100 MG; Start 06/16/17 at 10:30 Lactulose (Enulose) 20 gm BID PRN PO CONSTIPATION; Start 06/16/17 at 10:30 IV Flush (NS 10 ml) 10 ml PRN PRN IV IV PROTOCOL; Start 06/16/17 at 15:30 Labetalol HCl (Labetalol) 10 mg Q10M PRN IV ELEVATED BLOOD PRESSURE; Start 06/16 at 17:00 Hydralazine HCl (Apresoline) 10 mg Q4H PRN IV ELEVATED BLOOD PRESSURE; Start at 17:00 Neomycin/ Polymyxin/ Bacitracin (Neosporin Topical Oint) 1 applic BID TOP Last administered on 06/28/17 09:48; Admin Dose 1 APPLIC; Start 06/18/17 at 21:00 Acetaminophen 650 mg 650 mg Q6H PRN [place] FEVER Last administered on 06/25/17 11: 56; Admin Dose 650 MG; Start 06/22/17 at 16:30 Valproate Sodium 750 mg/Sodium Chloride 57.5 ml @ 55 mls/hr Q8 IVPB Last administered on 06/28/17 06:25; Admin Dose 55 MLS/HR; Start 06/23/17 at 14:00 Levetiracetam 100 ml @ 400 mls/hr Q12 IVPB Last administered on 06/28/17 09: 53; Admin Dose 400 MLS/HR; Start 06/23/17 at 21:00 Dextrose/Sodium Chloride (D5-NS) 1,000 ml @ 100 mls/hr Q10H IV Last administered on 06/28/17 12:57; Admin Dose 100 MLS/HR; Start 06/23/17 at 12:30 Eye Lubricant (Artificial Tears Oph) 2 drop QID BOTH EYES Last administered on 06/28/17 09:53; Admin Dose 2 DROP; Start 06/24/17 at 17:00 Topiramate (Topamax Sprinkle) 200 mg BID PO Last administered on 06/28/17 09: 48; Admin Dose 200 MG; Start 06/25/17 at 21:00 Lansoprazole 30 mg 30 mg DAILY@06 PO Last administered on 06/28/17 06:24; Admin Dose 30 MG; Start 06/26/17 at 08:00 Ceftriaxone Sodium 50 ml @ 100 mls/hr Q12H IVPB Last administered on 06:25; Admin Dose 100 MLS/HR; Start 06/26/17 at 17:00 Fluconazole 100 ml @ 100 mls/hr Q24H IVPB Last administered on 06/27/17 18:11 ; Admin Dose 100 MLS/HR; Start 06/26/17 at 17:00 Acyclovir 500 mg/ Sodium Chloride 100 ml @ 100 mls/hr Q8 IVPB Last administered on 06/28/17 06:25; Admin Dose 100 MLS/HR; Start 06/26/17 at 18:00 Vancomycin HCl (Vancocin) 250 ml @ 125 mls/hr Q12H IVPB Last administered on 09:47; Admin Dose 125 MLS/HR; Start 06/27/17 at 20:00 LORI PERES NP Jun 28, 2017 14:19
[2017-06-28] MEDS: FLUCONAZOLE 200 MG/NS (PMX) 100 ML IVPB SCH (18:22)
[2017-06-28] MEDS: ACETAMINOPHEN 650 MG SUPP PR PRN (20:41)
[2017-06-29] VITALS (10 sets, daily range): BP systolic 105–111; BP diastolic 59–67; PULSE 62–87; RESP 16–19
[2017-06-29] MEDS: CEFTRIAXONE 2 GM/50 ML (PMX) 50 ML IVPB SCH ×2 (04:31→17:07)
[2017-06-29] MEDS: DEXTROSE 5%-0.9% NACL 1,000 ML IV SCH ×2 (04:37→17:42)
[2017-06-29] MEDS: LANSOPRAZOLE 30 MG CAP PO SCH (06:18)
[2017-06-29] MEDS: VALPROATE INJ 750 MG in SOD CHLORIDE 0.9% 50 ML IVPB SCH ×3 (06:19→23:30)
[2017-06-29] MEDS: ACYCLOVIR 500 MG in SOD CHLORIDE 0.9% 100 ML IVPB SCH ×3 (06:19→21:49)
[2017-06-29 06:41] LABS: BASOPHILS % 0.4 % (0.0-2.0); EOSINOPHILS # 0.4 10^3/ul (0.0-0.5); EOSINOPHILS % 3.7 % (0.0-7.0); HEMATOCRIT 27.7 % (37.0-47.0); HEMOGLOBIN 9.2 g/dl (12.0-16.0); LYMPHOCYTES # 1.9 10^3/ul (0.8-2.9); LYMPHOCYTES % 20.1 % (15.0-51.0); MEAN CORPUSCULAR HGB CONC 33.2 g/dl (32.0-37.0); MEAN CORPUSCULAR VOLUME 93.3 fl (82.0-101.0); MEAN PLATELET VOLUME 10.2 fl (7.4-10.4); MONOCYTE # 1.1 10^3/ul (0.3-0.9); MONOCYTES % 11.3 % (0.0-11.0); NEUTROPHILS % 63.3 % (39.0-77.0); PLATELET COUNT 531 10^3/UL (140-415); RED BLOOD COUNT 2.97 10^6/ul (4.20-5.40); RED CELL DISTRIBUTION WIDTH 13.4 % (11.5-14.5); WHITE BLOOD COUNT 9.5 10^3/ul (4.8-10.8)
--- NOTE | 2017-06-29 06:54 | PN ---
DATE: SUBJECTIVE DATA: No acute changes overnight. The patient is lying comfortably in bed. Still with low grade fevers. OBJECTIVE DATA: VITAL SIGNS: T-max yesterday 101.7, T current 99.6, pulse 87, respirations 18, blood pressure 102/56, and saturation 100 percent. MICROBIOLOGY: Blood and urine culture remain negative. CSF culture pending. ANTIMICROBIALS: Vancomycin, acyclovir, ceftriaxone, and fluconazole. PHYSICAL EXAMINATION: GENERAL: Ill-appearing, middle-aged woman who is in no distress. HEENT: Head atraumatic, normocephalic. Sclerae anicteric. Buccal mucosa dry. NECK: Supple. CHEST: Rise symmetrical. Breath sounds clear. HEART: S1, S2. ABDOMEN: Soft. Bowel sounds present. EXTREMITIES: Without cyanosis. ASSESSMENT: 1. Acute likely bacterial meningitis, status post lumbar puncture yesterday with cerebrospinal fluid white blood cell count of 998, glucose 51, and protein 212, started on antibiotics. 2. Status post craniotomy for subdural hematoma drainage. 3. Ongoing seizures. 4. Developmental delay. PLAN: 1. Patient remains stable, on appropriate antimicrobials, pending final cultures and final workup. 2. Follow Neurology and Neurosurgery recommendations. Dictated By: Rhiannon Henriquez NP /[email or web address] /Document#: [id number] CAMILA
[2017-06-29 07:01] LABS: ALBUMIN 2.5 g/dl (3.3-4.9); ALBUMIN/GLOBULIN RATIO 0.73; CALCIUM 8.5 mg/dl (8.4-10.2); CREATININE 0.62 mg/dl (0.44-1.00); POTASSIUM 3.1 mmol/L (3.5-5.1); TOTAL PROTEIN 5.9 g/dl (6.1-8.1)
[2017-06-29] MEDS: VANCOMYCIN 1 GM in NS 250 ML IVPB SCH ×2 (09:17→20:09)
[2017-06-29] MEDS: CHOLECALCIFEROL 1,000 UNIT TAB PO SCH (09:18)
[2017-06-29] MEDS: METOCLOPRAMIDE 10 MG INJ IV SCH ×3 (09:18→17:07)
[2017-06-29] MEDS: ARIPIPRAZOLE 10 MG TAB PO SCH (09:18)
[2017-06-29] MEDS: TOPIRAMATE SPRINKLE 25 MG CAP PO SCH (09:32)
[2017-06-29] MEDS: LEVETIRACETAM 1500 MG (PMX) 100 ML IVPB SCH ×2 (09:33→21:12)
[2017-06-29] MEDS: ARTIFICIAL TEARS 15 ML OPH BOTH EYES SCH ×4 (09:37→21:12)
[2017-06-29] MEDS: NEOMYC/POLYMYX/BACIT 30 GM OINT TOP SCH ×2 (09:37→21:12)
--- NOTE | 2017-06-29 10:36 | CONS ---
Date/Time of Note Date/Time of Note DATE: 06/29/17 TIME: 10:34 Consult Date/Type/Reason Admit Date/Time Jun 15, 2017 at 20:20 Initial Consult Date 06/23/17 Type of Consultation: Neurology Reason for Consultation mental status improved being tx for bacterial meningitis Ordering Provider: ALEXANDER DARBY Objective Vital Signs Date Time Temp Pulse Resp B/P Pulse Ox O2 Delivery O2 Flow Rate FiO2 06/29/17 08:59 71 06/29/17 08:13 97.9 19 105/59 99 06/28/17 16:00 Nasal Cannula Intake and Output 06/28/17 06/28/17 06/29/17 15:00 23:00 07:00 Intake Total 600 ml 200 ml Output Total 1200 ml 2000 ml Balance -600 ml -1800 ml Exam awake can track and follow examiner oriented to self, hospital, states her age follows simple commands CN: JAH, blinks to threat, no sig facial asymmetry Motor: lifts UE anti-gravity can sustain Results/Medications Result Diagram: 06/29/17 0557 06/29/17 0557 Results 24 hrs Laboratory Tests Test 06/29/17 05:57 White Blood Count 9.5 Red Blood Count 2.97 L Hemoglobin 9.2 L Hematocrit 27.7 L Mean Corpuscular Volume 93.3 Mean Corpuscular Hemoglobin 31.0 Mean Corpuscular Hemoglobin Concent 33.2 Red Cell Distribution Width 13.4 Platelet Count 531 H Mean Platelet Volume 10.2 Neutrophils % 63.3 Lymphocytes % 20.1 Monocytes % 11.3 H Eosinophils % 3.7 Basophils % 0.4 Nucleated Red Blood Cells % 0.0 Neutrophils # (Manual) 6 Lymphocytes # 1.9 Monocytes # 1.1 H Eosinophils # 0.4 Basophils # 0.0 Nucleated Red Blood Cells # 0.0 Sodium Level 142 Potassium Level 3.1 L Chloride Level 108 Carbon Dioxide Level 26 Anion Gap 11 Blood Urea Nitrogen 10 Creatinine 0.62 Glucose Level 135 Calcium Level 8.5 Total Bilirubin 0.0 L Direct Bilirubin 0.00 Indirect Bilirubin 0.0 Aspartate Amino Transf (AST/SGOT) 19 Alanine Aminotransferase (ALT/SGPT) 23 Alkaline Phosphatase 38 L Total Protein 5.9 L Albumin 2.5 L Globulin 3.40 H Albumin/Globulin Ratio 0.73 Medications Current Medications Aripiprazole (Abilify) 10 mg DAILY PO Last administered on 06/29/17 09:18; Admin Dose 10 MG; Start 06/16/17 at 09:00 Cholecalciferol (Vitamin D) 1,000 unit DAILY PO Last administered on 06/29/17 09:18; Admin Dose 1,000 UNIT; Start 06/16/17 at 09:00 Lorazepam (Ativan) 2 mg Q1H PRN IV seizure Last administered on 06/22/17 19:27 ; Admin Dose 2 MG; Start 06/15/17 at 20:30 Acetaminophen (Tylenol Tab) 650 mg Q4H PRN PO pain/fever Last administered on 23:31; Admin Dose 650 MG; Start 06/15/17 at 20:30 Morphine Sulfate (morphine) 2 mg Q2H PRN IV pain Last administered on 22:53; Admin Dose 2 MG; Start 06/15/17 at 20:30 Ondansetron HCl (Zofran Inj) 4 mg Q4H PRN IV nausea; Start 06/15/17 at 20:30 Docusate Sodium (Colace) 100 mg DAILY PRN PO CONSTIPATION Last administered on 06/23/17 08:09; Admin Dose 100 MG; Start 06/16/17 at 10:30 Lactulose (Enulose) 20 gm BID PRN PO CONSTIPATION; Start 06/16/17 at 10:30 IV Flush (NS 10 ml) 10 ml PRN PRN IV IV PROTOCOL; Start 06/16/17 at 15:30 Labetalol HCl (Labetalol) 10 mg Q10M PRN IV ELEVATED BLOOD PRESSURE; Start 06/16 at 17:00 Hydralazine HCl (Apresoline) 10 mg Q4H PRN IV ELEVATED BLOOD PRESSURE; Start at 17:00 Neomycin/ Polymyxin/ Bacitracin (Neosporin Topical Oint) 1 applic BID TOP Last administered on 06/29/17 09:37; Admin Dose 1 APPLIC; Start 06/18/17 at 21:00 Acetaminophen 650 mg 650 mg Q6H PRN [place] FEVER Last administered on 06/28/17 20: 41; Admin Dose 650 MG; Start 06/22/17 at 16:30 Valproate Sodium 750 mg/Sodium Chloride 57.5 ml @ 55 mls/hr Q8 IVPB Last administered on 06/29/17 06:19; Admin Dose 55 MLS/HR; Start 06/23/17 at 14:00 Levetiracetam 100 ml @ 400 mls/hr Q12 IVPB Last administered on 06/29/17 09: 33; Admin Dose 400 MLS/HR; Start 06/23/17 at 21:00 Dextrose/Sodium Chloride (D5-NS) 1,000 ml @ 100 mls/hr Q10H IV Last administered on 06/29/17 04:37; Admin Dose 100 MLS/HR; Start 06/23/17 at 12:30 Eye Lubricant (Artificial Tears Oph) 2 drop QID BOTH EYES Last administered on 06/29/17 09:37; Admin Dose 2 DROP; Start 06/24/17 at 17:00 Topiramate (Topamax Sprinkle) 200 mg BID PO Last administered on 06/29/17 09: 32; Admin Dose 200 MG; Start 06/25/17 at 21:00 Lansoprazole 30 mg 30 mg DAILY@06 PO Last administered on 06/29/17 06:18; Admin Dose 30 MG; Start 06/26/17 at 08:00 Ceftriaxone Sodium 50 ml @ 100 mls/hr Q12H IVPB Last administered on 04:31; Admin Dose 100 MLS/HR; Start 06/26/17 at 17:00 Fluconazole 100 ml @ 100 mls/hr Q24H IVPB Last administered on 06/28/17 18:22 ; Admin Dose 100 MLS/HR; Start 06/26/17 at 17:00 Acyclovir 500 mg/ Sodium Chloride 100 ml @ 100 mls/hr Q8 IVPB Last administered on 06/29/17 06:19; Admin Dose 100 MLS/HR; Start 06/26/17 at 18:00 Vancomycin HCl (Vancocin) 250 ml @ 125 mls/hr Q12H IVPB Last administered on 09:17; Admin Dose 125 MLS/HR; Start 06/27/17 at 20:00 Assessment/Plan Chief Complaint/Hosp Course 51 yo female with 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 CSF showed WBC of 589 with 76% white cells, Glucose 51, protein 212 suggesting Meningitis. Plan: -c/w Keppra 1500 mg q12h -c/w VPA 750 mg q8h -c/w Topamax to 200 mg BID -seizure precautions -repeat EEG shows right central temporal sharps -ativan prn 0.1 mg/kg for seizure activity max dose 4 mg at once, max dose 10 mg in 24 hours would benefit to transfer for 24 hour EEG monitoring and higher level of care Problems: ADAM URENA MD Jun 29, 2017 10:36
[2017-06-29] MEDS ORDERED: POTASSIUM CHLORIDE 20 MEQ POWDER FOR ORAL SOLN PO ONE (14:00)
--- NOTE | 2017-06-29 14:03 | PN ---
Date/Time of Note Date/Time of Note DATE: 06/29/17 TIME: 13:47 Assessment/Plan VTE Prophylaxis VTE Prophylaxis Intervention: SCD's Lines/Catheters IV [facility]ter Type (from [facility] PICC Line Central line still needed: Yes (For IV access) Urinary Cath still in place: Yes Reason Cath still needed: other (indicate) (Monitor urine output) Assessment/Plan Assessment/Plan 51-year-old female with: 1. Right subdural hematoma, status post subdural hematoma drainage POD#11. She continues to have seizures. She remains encephalopathic and lethargic. All cultures peripheral blood cultures, urine culture, CSF culture negative so far. Of note all these cultures were taken prior to antibiotic initiation. Awaiting fungal cultures and HSV PCR and VDRL from CSF. Discussed with infectious disease, keeping patient on broad-spectrum antibiotics until those final cultures and PCR's are available Discontinue isolation Still white blood cell count within normal, hemodynamically stable. Repeat CAT scan of the head stable. 2. Seizure disorder, refractory to medications apparently: Appreciate recommendations from neurology , continue current medication. Repeat CAT scan of the head, stable. Status post vagal nerve stimulator. On treatment for suspected meningitis, bacterial, fungal versus viral, although bacterial cultures negative. Patient will have to follow-up with a tertiary neurology regarding adjustment of her vagal nerve stimulator to help with seizures refractory to medications. For now due to the fact that she is limited by her IPA to the network there contracted to, we were attempting a transfer to [facility] where continuous EEG is available. Patient was about to be transferred to [facility], however in the setting of fevers accepting physician have declined to take the patient until she defervescences for 24 hours at least and she is on adequate treatment this suspected meningitis. 3. Developmental delay: Close neurological monitoring given acute traumatic head injury with right subdural hematoma. Continue outpatient medications. 4. GERD: Continue Protonix 5. Chronic constipation: Continue outpatient regimen as well as patient able to take p.o. Prophylaxis: Protonix for GI prophylaxis, SCDs to lower extremity for DVT prophylaxis Disposition: Status post right subdural hematoma evacuation, drain removed 11 days ago. Repeat CAT scan stable, follow-up fungal cultures and viral PCR from CSF for further adjustment of antibiotics. Subjective 24 Hr Interval Summary Free Text/Dictation Patient awake, alert as much as she can be, she is on broad-spectrum antibiotics with episodes of low-grade temperature to 100.5 yesterday. She seems to be still having episodes of breakthrough small seizures. CSF bacterial culture (prior to initiation of antibiotics) negative, fungal culture and HSV PCR and VDRL are pending, given the CSF results from Thursday patient to be maintained on IV antibiotics for now. D/c isolation per ID Continue current treatment, holding of transfer. Exam/Review of Systems Vital Signs Vitals Vital Signs Date Time Temp Pulse Resp B/P Pulse Ox O2 Delivery O2 Flow Rate FiO2 06/29/17 12:20 81 06/29/17 08:13 97.9 19 105/59 99 06/28/17 16:00 Nasal Cannula Intake and Output 06/28/17 06/28/17 06/29/17 15:00 23:00 07:00 Intake Total 600 ml 200 ml Output Total 1200 ml 2000 ml Balance -600 ml -1800 ml Exam Constitutional: alert, frail, oriented (x2) Respiratory: clear to auscultation, normal air movement Cardiovascular: nl pulses, regular rate and rhythm Gastrointestinal: non-tender, soft Musculoskeletal: nl extremities to inspection Extremities: normal pulses, other (No edema, clubbing or cyanosis) Neurological: BOTTOM TURNER II-XII intact, lethargic, nl mental status, other (Slurred speech.) Results Result Diagram: 06/29/17 0557 06/29/17 0557 Results 24 hrs Laboratory Tests Test 06/29/17 05:57 White Blood Count 9.5 Red Blood Count 2.97 L Hemoglobin 9.2 L Hematocrit 27.7 L Mean Corpuscular Volume 93.3 Mean Corpuscular Hemoglobin 31.0 Mean Corpuscular Hemoglobin Concent 33.2 Red Cell Distribution Width 13.4 Platelet Count 531 H Mean Platelet Volume 10.2 Neutrophils % 63.3 Lymphocytes % 20.1 Monocytes % 11.3 H Eosinophils % 3.7 Basophils % 0.4 Nucleated Red Blood Cells % 0.0 Neutrophils # (Manual) 6 Lymphocytes # 1.9 Monocytes # 1.1 H Eosinophils # 0.4 Basophils # 0.0 Nucleated Red Blood Cells # 0.0 Sodium Level 142 Potassium Level 3.1 L Chloride Level 108 Carbon Dioxide Level 26 Anion Gap 11 Blood Urea Nitrogen 10 Creatinine 0.62 Glucose Level 135 Calcium Level 8.5 Total Bilirubin 0.0 L Direct Bilirubin 0.00 Indirect Bilirubin 0.0 Aspartate Amino Transf (AST/SGOT) 19 Alanine Aminotransferase (ALT/SGPT) 23 Alkaline Phosphatase 38 L Total Protein 5.9 L Albumin 2.5 L Globulin 3.40 H Albumin/Globulin Ratio 0.73 Medications Medications Current Medications Aripiprazole (Abilify) 10 mg DAILY PO Last administered on 06/29/17 09:18; Admin Dose 10 MG; Start 06/16/17 at 09:00 Cholecalciferol (Vitamin D) 1,000 unit DAILY PO Last administered on 06/29/17 09:18; Admin Dose 1,000 UNIT; Start 06/16/17 at 09:00 Lorazepam (Ativan) 2 mg Q1H PRN IV seizure Last administered on 06/22/17 19:27 ; Admin Dose 2 MG; Start 06/15/17 at 20:30 Acetaminophen (Tylenol Tab) 650 mg Q4H PRN PO pain/fever Last administered on 23:31; Admin Dose 650 MG; Start 06/15/17 at 20:30 Morphine Sulfate (morphine) 2 mg Q2H PRN IV pain Last administered on 22:53; Admin Dose 2 MG; Start 06/15/17 at 20:30 Ondansetron HCl (Zofran Inj) 4 mg Q4H PRN IV nausea; Start 06/15/17 at 20:30 Docusate Sodium (Colace) 100 mg DAILY PRN PO CONSTIPATION Last administered on 06/23/17 08:09; Admin Dose 100 MG; Start 06/16/17 at 10:30 Lactulose (Enulose) 20 gm BID PRN PO CONSTIPATION; Start 06/16/17 at 10:30 IV Flush (NS 10 ml) 10 ml PRN PRN IV IV PROTOCOL; Start 06/16/17 at 15:30 Labetalol HCl (Labetalol) 10 mg Q10M PRN IV ELEVATED BLOOD PRESSURE; Start 06/16 at 17:00 Hydralazine HCl (Apresoline) 10 mg Q4H PRN IV ELEVATED BLOOD PRESSURE; Start at 17:00 Neomycin/ Polymyxin/ Bacitracin (Neosporin Topical Oint) 1 applic BID TOP Last administered on 06/29/17 09:37; Admin Dose 1 APPLIC; Start 06/18/17 at 21:00 Acetaminophen 650 mg 650 mg Q6H PRN [place] FEVER Last administered on 06/28/17 20: 41; Admin Dose 650 MG; Start 06/22/17 at 16:30 Valproate Sodium 750 mg/Sodium Chloride 57.5 ml @ 55 mls/hr Q8 IVPB Last administered on 06/29/17 06:19; Admin Dose 55 MLS/HR; Start 06/23/17 at 14:00 Levetiracetam 100 ml @ 400 mls/hr Q12 IVPB Last administered on 06/29/17 09: 33; Admin Dose 400 MLS/HR; Start 06/23/17 at 21:00 Dextrose/Sodium Chloride (D5-NS) 1,000 ml @ 100 mls/hr Q10H IV Last administered on 06/29/17 04:37; Admin Dose 100 MLS/HR; Start 06/23/17 at 12:30 Eye Lubricant (Artificial Tears Oph) 2 drop QID BOTH EYES Last administered on 06/29/17 12:27; Admin Dose 2 DROP; Start 06/24/17 at 17:00 Topiramate (Topamax Sprinkle) 200 mg BID PO Last administered on 06/29/17 09: 32; Admin Dose 200 MG; Start 06/25/17 at 21:00 Lansoprazole 30 mg 30 mg DAILY@06 PO Last administered on 06/29/17 06:18; Admin Dose 30 MG; Start 06/26/17 at 08:00 Ceftriaxone Sodium 50 ml @ 100 mls/hr Q12H IVPB Last administered on 04:31; Admin Dose 100 MLS/HR; Start 06/26/17 at 17:00 Fluconazole 100 ml @ 100 mls/hr Q24H IVPB Last administered on 06/28/17 18:22 ; Admin Dose 100 MLS/HR; Start 06/26/17 at 17:00 Acyclovir 500 mg/ Sodium Chloride 100 ml @ 100 mls/hr Q8 IVPB Last administered on 06/29/17 06:19; Admin Dose 100 MLS/HR; Start 06/26/17 at 18:00 Vancomycin HCl (Vancocin) 250 ml @ 125 mls/hr Q12H IVPB Last administered on 09:17; Admin Dose 125 MLS/HR; Start 06/27/17 at 20:00 ALEXANDER DARBY Jun 29, 2017 14:02
--- NOTE | 2017-06-29 15:29 | CONS ---
Date/Time of Note Date/Time of Note DATE: 06/29/17 TIME: 15:27 Assessment/Plan Assessment/Plan Chief Complaint/Hosp Course SUBJECTIVE DATA: No acute changes overnight. The patient is awake, afebrile, looks comfortable INDWELLINGS: Right-sided PICC line placed on June 16 and Chopra catheter. Abx: Vanco, Rocephin, Acyclovir, Diflucan PHYSICAL EXAMINATION: GENERAL: This is a ill-appearing middle-aged woman who is in no distress. HEENT: Head atraumatic, normocephalic. Sclerae anicteric. Buccal mucosa dry. NECK: Supple. CHEST: Chest rise symmetrical. Breath sounds diminished at the bases. HEART: S1, S2. ABDOMEN: Soft, bowel sounds present. EXTREMITIES: Without cyanosis. ASSESSMENT: 1. Acute meningitis, likely bacterial==> cx pending 2. Status post craniotomy for subdural hematoma (SDH). 3. Ongoing seizures. 4. Developmental delay. PLAN: The patient remains stable. CSF cultures negative, pending other workup , will discontinue isolation, continue on current antimicrobials for now, follow neurology recommendations Discussed with staff Problems: Consultation Date/Type/Reason Admit Date/Time Jun 15, 2017 at 20:20 Initial Consult Date 06/25/17 Type of Consultation: id Referring Provider: ALEXANDER DARBY Exam/Review of Systems Vital Signs Vitals Vital Signs Date Time Temp Pulse Resp B/P Pulse Ox O2 Delivery O2 Flow Rate FiO2 06/29/17 14:05 98.2 78 16 106/59 95 06/28/17 16:00 Nasal Cannula Intake and Output 06/28/17 06/28/17 06/29/17 15:00 23:00 07:00 Intake Total 600 ml 200 ml Output Total 1200 ml 2000 ml Balance -600 ml -1800 ml Results Result Diagram: 06/29/17 0557 06/29/17 0557 Results 24 hrs Laboratory Tests Test 06/29/17 05:57 White Blood Count 9.5 Red Blood Count 2.97 L Hemoglobin 9.2 L Hematocrit 27.7 L Mean Corpuscular Volume 93.3 Mean Corpuscular Hemoglobin 31.0 Mean Corpuscular Hemoglobin Concent 33.2 Red Cell Distribution Width 13.4 Platelet Count 531 H Mean Platelet Volume 10.2 Neutrophils % 63.3 Lymphocytes % 20.1 Monocytes % 11.3 H Eosinophils % 3.7 Basophils % 0.4 Nucleated Red Blood Cells % 0.0 Neutrophils # (Manual) 6 Lymphocytes # 1.9 Monocytes # 1.1 H Eosinophils # 0.4 Basophils # 0.0 Nucleated Red Blood Cells # 0.0 Sodium Level 142 Potassium Level 3.1 L Chloride Level 108 Carbon Dioxide Level 26 Anion Gap 11 Blood Urea Nitrogen 10 Creatinine 0.62 Glucose Level 135 Calcium Level 8.5 Magnesium Level 2.1 Total Bilirubin 0.0 L Direct Bilirubin 0.00 Indirect Bilirubin 0.0 Aspartate Amino Transf (AST/SGOT) 19 Alanine Aminotransferase (ALT/SGPT) 23 Alkaline Phosphatase 38 L Total Protein 5.9 L Albumin 2.5 L Globulin 3.40 H Albumin/Globulin Ratio 0.73 Medications Medications Current Medications Aripiprazole (Abilify) 10 mg DAILY PO Last administered on 06/29/17 09:18; Admin Dose 10 MG; Start 06/16/17 at 09:00 Cholecalciferol (Vitamin D) 1,000 unit DAILY PO Last administered on 06/29/17 09:18; Admin Dose 1,000 UNIT; Start 06/16/17 at 09:00 Lorazepam (Ativan) 2 mg Q1H PRN IV seizure Last administered on 06/22/17 19:27 ; Admin Dose 2 MG; Start 06/15/17 at 20:30 Acetaminophen (Tylenol Tab) 650 mg Q4H PRN PO pain/fever Last administered on 23:31; Admin Dose 650 MG; Start 06/15/17 at 20:30 Morphine Sulfate (morphine) 2 mg Q2H PRN IV pain Last administered on 22:53; Admin Dose 2 MG; Start 06/15/17 at 20:30 Ondansetron HCl (Zofran Inj) 4 mg Q4H PRN IV nausea; Start 06/15/17 at 20:30 Docusate Sodium (Colace) 100 mg DAILY PRN PO CONSTIPATION Last administered on 06/23/17 08:09; Admin Dose 100 MG; Start 06/16/17 at 10:30 Lactulose (Enulose) 20 gm BID PRN PO CONSTIPATION; Start 06/16/17 at 10:30 IV Flush (NS 10 ml) 10 ml PRN PRN IV IV PROTOCOL; Start 06/16/17 at 15:30 Labetalol HCl (Labetalol) 10 mg Q10M PRN IV ELEVATED BLOOD PRESSURE; Start 06/16 at 17:00 Hydralazine HCl (Apresoline) 10 mg Q4H PRN IV ELEVATED BLOOD PRESSURE; Start at 17:00 Neomycin/ Polymyxin/ Bacitracin (Neosporin Topical Oint) 1 applic BID TOP Last administered on 06/29/17 09:37; Admin Dose 1 APPLIC; Start 06/18/17 at 21:00 Acetaminophen 650 mg 650 mg Q6H PRN [place] FEVER Last administered on 06/28/17 20: 41; Admin Dose 650 MG; Start 06/22/17 at 16:30 Valproate Sodium 750 mg/Sodium Chloride 57.5 ml @ 55 mls/hr Q8 IVPB Last administered on 06/29/17 13:50; Admin Dose 55 MLS/HR; Start 06/23/17 at 14:00 Levetiracetam 100 ml @ 400 mls/hr Q12 IVPB Last administered on 06/29/17 09: 33; Admin Dose 400 MLS/HR; Start 06/23/17 at 21:00 Dextrose/Sodium Chloride (D5-NS) 1,000 ml @ 100 mls/hr Q10H IV Last administered on 06/29/17 04:37; Admin Dose 100 MLS/HR; Start 06/23/17 at 12:30 Eye Lubricant (Artificial Tears Oph) 2 drop QID BOTH EYES Last administered on 06/29/17 12:27; Admin Dose 2 DROP; Start 06/24/17 at 17:00 Topiramate (Topamax Sprinkle) 200 mg BID PO Last administered on 06/29/17 09: 32; Admin Dose 200 MG; Start 06/25/17 at 21:00 Lansoprazole 30 mg 30 mg DAILY@06 PO Last administered on 06/29/17 06:18; Admin Dose 30 MG; Start 06/26/17 at 08:00 Ceftriaxone Sodium 50 ml @ 100 mls/hr Q12H IVPB Last administered on 04:31; Admin Dose 100 MLS/HR; Start 06/26/17 at 17:00 Fluconazole 100 ml @ 100 mls/hr Q24H IVPB Last administered on 06/28/17 18:22 ; Admin Dose 100 MLS/HR; Start 06/26/17 at 17:00 Acyclovir 500 mg/ Sodium Chloride 100 ml @ 100 mls/hr Q8 IVPB Last administered on 06/29/17 14:13; Admin Dose 100 MLS/HR; Start 06/26/17 at 18:00 Vancomycin HCl (Vancocin) 250 ml @ 125 mls/hr Q12H IVPB Last administered on 09:17; Admin Dose 125 MLS/HR; Start 06/27/17 at 20:00 LORI PERES NP Jun 29, 2017 15:29
[2017-06-29] MEDS: FLUCONAZOLE 200 MG/NS (PMX) 100 ML IVPB SCH (17:42)
[2017-06-30] VITALS (12 sets, daily range): BP systolic 96–126; BP diastolic 54–82; PULSE 69–84; RESP 16–19
[2017-06-30] MEDS: TOPIRAMATE SPRINKLE 25 MG CAP PO SCH ×3 (01:29→20:36)
[2017-06-30] MEDS: CEFTRIAXONE 2 GM/50 ML (PMX) 50 ML IVPB SCH ×2 (04:34→18:21)
[2017-06-30] MEDS: DEXTROSE 5%-0.9% NACL 1,000 ML IV SCH ×2 (04:35→15:21)
[2017-06-30] MEDS: ACYCLOVIR 500 MG in SOD CHLORIDE 0.9% 100 ML IVPB SCH ×3 (05:55→22:32)
[2017-06-30] MEDS: LANSOPRAZOLE 30 MG CAP PO SCH (05:56)
[2017-06-30 07:07] LABS: BASOPHIL # 0.1 10^3/ul (0.0-0.1); BASOPHILS % 0.4 % (0.0-2.0); EOSINOPHILS # 0.4 10^3/ul (0.0-0.5); HEMATOCRIT 29.3 % (37.0-47.0); HEMOGLOBIN 9.4 g/dl (12.0-16.0); LYMPHOCYTES # 2.5 10^3/ul (0.8-2.9); LYMPHOCYTES % 20.4 % (15.0-51.0); MEAN CORPUSCULAR HEMOGLOBIN 30.1 pg (29.0-33.0); MEAN CORPUSCULAR HGB CONC 32.1 g/dl (32.0-37.0); MEAN CORPUSCULAR VOLUME 93.9 fl (82.0-101.0); MEAN PLATELET VOLUME 10.4 fl (7.4-10.4); MONOCYTE # 1.2 10^3/ul (0.3-0.9); MONOCYTES % 9.9 % (0.0-11.0); NEUTROPHILS % 65.3 % (39.0-77.0); NUCLEATED RED BLOOD CELLS% 0.2 /100WBC (0.0-0.0); PLATELET COUNT 558 10^3/UL (140-415); RED BLOOD COUNT 3.12 10^6/ul (4.20-5.40); RED CELL DISTRIBUTION WIDTH 13.5 % (11.5-14.5); WHITE BLOOD COUNT 12.3 10^3/ul (4.8-10.8)
[2017-06-30 07:29] LABS: PHOSPHORUS 3.8 mg/dl (2.5-4.9)
[2017-06-30 07:33] LABS: ALBUMIN 2.7 g/dl (3.3-4.9); ALBUMIN/GLOBULIN RATIO 0.72; CALCIUM 8.7 mg/dl (8.4-10.2); CREATININE 0.6 mg/dl (0.44-1.00); POTASSIUM 3.5 mmol/L (3.5-5.1); TOTAL PROTEIN 6.4 g/dl (6.1-8.1)
[2017-06-30] MEDS: VALPROATE INJ 750 MG in SOD CHLORIDE 0.9% 50 ML IVPB SCH ×3 (07:45→21:31)
[2017-06-30] MEDS: LEVETIRACETAM 1500 MG (PMX) 100 ML IVPB SCH ×2 (08:49→20:36)
[2017-06-30] MEDS: METOCLOPRAMIDE 10 MG INJ IV SCH ×3 (09:07→17:12)
[2017-06-30] MEDS: ARTIFICIAL TEARS 15 ML OPH BOTH EYES SCH ×4 (09:07→20:35)
[2017-06-30] MEDS: ARIPIPRAZOLE 10 MG TAB PO SCH (09:07)
[2017-06-30] MEDS: CHOLECALCIFEROL 1,000 UNIT TAB PO SCH (09:07)
[2017-06-30] MEDS: VANCOMYCIN 1 GM in NS 250 ML IVPB SCH ×2 (09:08→20:36)
[2017-06-30] MEDS: NEOMYC/POLYMYX/BACIT 30 GM OINT TOP SCH ×2 (09:16→20:37)
--- NOTE | 2017-06-30 13:03 | PN ---
Date/Time of Note Date/Time of Note DATE: 06/30/17 TIME: 12:56 Assessment/Plan VTE Prophylaxis VTE Prophylaxis Intervention: SCD's Lines/Catheters IV Catheter Type (from Nrs): PICC Line Central line still needed: Yes (For IV access) Urinary Cath still in place: Yes Reason Cath still needed: other (indicate) (Bed rest monitoring urine output) Assessment/Plan Assessment/Plan 51-year-old female with: 1. Right subdural hematoma, status post subdural hematoma drainage POD#12. No seizure activity reported for the past 24 hours. Much improved encephalopathy and lethargy. Afebrile for 24 hours now, Repeat CAT scan of the head last week stable. All cultures peripheral blood cultures, urine culture, CSF culture negative so far. Of note all these cultures were taken prior to antibiotic initiation. Awaiting fungal cultures and HSV PCR and VDRL from CSF. Per infectious disease, keeping patient on broad-spectrum antibiotics until those final cultures and PCR's are available Mild leukocytosis noted today, hemodynamically stable. Off isolation. 2. Seizure disorder, refractory to medications apparently: Appreciate recommendations from neurology , continue current medication. Repeat CAT scan of the head, stable. Status post vagal nerve stimulator. On treatment for suspected meningitis, bacterial, fungal versus viral, although bacterial cultures negative. Patient will have to follow-up with a tertiary neurology regarding adjustment of her vagal nerve stimulator to help with seizures refractory to medications. For now due to the fact that she is limited by her IPA to the network there contracted to, we were attempting a transfer to [facility] where continuous EEG is available. Patient was about to be transferred to [facility] on 06/26, however in the setting of fevers accepting physician have declined to take the patient until she defervescences for 24 hours at least and she is on adequate treatment for this suspected meningitis. We will recontact them again for hopefully transferring the next 24 hours if the patient remains afebrile and we get close to final recommendations for antibiotics from infectious disease. 3. Developmental delay: Close neurological monitoring given acute traumatic head injury with right subdural hematoma. Continue outpatient medications. 4. GERD: Continue Protonix 5. Chronic constipation: Continue outpatient regimen as well as patient able to take p.o. Prophylaxis: Protonix for GI prophylaxis, SCDs to lower extremity for DVT prophylaxis Disposition: Status post right subdural hematoma evacuation, drain removed 11 days ago. Repeat CAT scan stable, follow-up fungal cultures and viral PCR from CSF for further adjustment of antibiotics. Hopefully can be transferred to [facility] in the next 24 hours. Subjective 24 Hr Interval Summary Free Text/Dictation Patient much more awake, she is communicating and able to have decent conversation in Syriac with limited answers. She was reevaluated by speech therapy and will be advanced to soft diet. No seizures observe over the past 24 hours or reported by RN. Afebrile over the past 24 hours, will follow up with infectious disease regarding antibiotic regimen and length of treatment. Exam/Review of Systems Vital Signs Vitals Vital Signs Date Time Temp Pulse Resp B/P Pulse Ox O2 Delivery O2 Flow Rate FiO2 06/30/17 12:23 79 06/30/17 11:43 98.2 18 103/54 95 06/28/17 16:00 Nasal Cannula Intake and Output 06/29/17 06/29/17 06/30/17 15:00 23:00 07:00 Intake Total 150 ml 700 ml 250 ml Output Total 1400 ml 1300 ml Balance 150 ml -700 ml -1050 ml Exam Constitutional: alert, frail Respiratory: clear to auscultation, normal air movement Cardiovascular: nl pulses, regular rate and rhythm Gastrointestinal: non-tender, soft Musculoskeletal: nl extremities to inspection Extremities: normal pulses, other (No edema, clubbing or cyanosis) Neurological: LOGISTICS LEAD II-XII intact, nl mental status, nl speech, nl strength Results Result Diagram: 06/30/17 0608 06/30/17 0608 Results 24 hrs Laboratory Tests Test 06/30/17 06:08 White Blood Count 12.3 #H Red Blood Count 3.12 L Hemoglobin 9.4 L Hematocrit 29.3 L Mean Corpuscular Volume 93.9 Mean Corpuscular Hemoglobin 30.1 Mean Corpuscular Hemoglobin Concent 32.1 Red Cell Distribution Width 13.5 Platelet Count 558 H Mean Platelet Volume 10.4 Neutrophils % 65.3 Lymphocytes % 20.4 Monocytes % 9.9 Eosinophils % 3.0 Basophils % 0.4 Nucleated Red Blood Cells % 0.2 H Neutrophils # (Manual) 8 H Lymphocytes # 2.5 Monocytes # 1.2 H Eosinophils # 0.4 Basophils # 0.1 Nucleated Red Blood Cells # 0.0 Sodium Level 141 Potassium Level 3.5 Chloride Level 107 Carbon Dioxide Level 27 Anion Gap 11 Blood Urea Nitrogen 11 Creatinine 0.60 Glucose Level 100 Calcium Level 8.7 Phosphorus Level 3.8 Magnesium Level 2.0 Total Bilirubin 0.0 L Direct Bilirubin 0.00 Indirect Bilirubin 0.0 Aspartate Amino Transf (AST/SGOT) 22 Alanine Aminotransferase (ALT/SGPT) 26 Alkaline Phosphatase 45 Total Protein 6.4 Albumin 2.7 L Globulin 3.70 H Albumin/Globulin Ratio 0.72 Medications Medications Current Medications Aripiprazole (Abilify) 10 mg DAILY PO Last administered on 06/30/17 09:07; Admin Dose 10 MG; Start 06/16/17 at 09:00 Cholecalciferol (Vitamin D) 1,000 unit DAILY PO Last administered on 06/30/17 09:07; Admin Dose 1,000 UNIT; Start 06/16/17 at 09:00 Lorazepam (Ativan) 2 mg Q1H PRN IV seizure Last administered on 06/22/17 19:27 ; Admin Dose 2 MG; Start 06/15/17 at 20:30 Acetaminophen (Tylenol Tab) 650 mg Q4H PRN PO pain/fever Last administered on 23:31; Admin Dose 650 MG; Start 06/15/17 at 20:30 Morphine Sulfate (morphine) 2 mg Q2H PRN IV pain Last administered on 22:53; Admin Dose 2 MG; Start 06/15/17 at 20:30 Ondansetron HCl (Zofran Inj) 4 mg Q4H PRN IV nausea; Start 06/15/17 at 20:30 Docusate Sodium (Colace) 100 mg DAILY PRN PO CONSTIPATION Last administered on 06/23/17 08:09; Admin Dose 100 MG; Start 06/16/17 at 10:30 Lactulose (Enulose) 20 gm BID PRN PO CONSTIPATION; Start 06/16/17 at 10:30 IV Flush (NS 10 ml) 10 ml PRN PRN IV IV PROTOCOL; Start 06/16/17 at 15:30 Labetalol HCl (Labetalol) 10 mg Q10M PRN IV ELEVATED BLOOD PRESSURE; Start 06/16 at 17:00 Hydralazine HCl (Apresoline) 10 mg Q4H PRN IV ELEVATED BLOOD PRESSURE; Start at 17:00 Neomycin/ Polymyxin/ Bacitracin (Neosporin Topical Oint) 1 applic BID TOP Last administered on 06/30/17 09:16; Admin Dose 1 APPLIC; Start 06/18/17 at 21:00 Acetaminophen 650 mg 650 mg Q6H PRN [place] FEVER Last administered on 06/28/17 20: 41; Admin Dose 650 MG; Start 06/22/17 at 16:30 Valproate Sodium 750 mg/Sodium Chloride 57.5 ml @ 55 mls/hr Q8 IVPB Last administered on 06/30/17 07:45; Admin Dose 55 MLS/HR; Start 06/23/17 at 14:00 Levetiracetam 100 ml @ 400 mls/hr Q12 IVPB Last administered on 06/30/17 08: 49; Admin Dose 400 MLS/HR; Start 06/23/17 at 21:00 Dextrose/Sodium Chloride (D5-NS) 1,000 ml @ 100 mls/hr Q10H IV Last administered on 06/30/17 04:35; Admin Dose 100 MLS/HR; Start 06/23/17 at 12:30 Eye Lubricant (Artificial Tears Oph) 2 drop QID BOTH EYES Last administered on 06/30/17 12:26; Admin Dose 2 DROP; Start 06/24/17 at 17:00 Topiramate (Topamax Sprinkle) 200 mg BID PO Last administered on 06/30/17 09: 08; Admin Dose 200 MG; Start 06/25/17 at 21:00 Lansoprazole 30 mg 30 mg DAILY@06 PO Last administered on 06/30/17 05:56; Admin Dose 30 MG; Start 06/26/17 at 08:00 Ceftriaxone Sodium 50 ml @ 100 mls/hr Q12H IVPB Last administered on 04:34; Admin Dose 100 MLS/HR; Start 06/26/17 at 17:00 Fluconazole 100 ml @ 100 mls/hr Q24H IVPB Last administered on 06/29/17 17:42 ; Admin Dose 100 MLS/HR; Start 06/26/17 at 17:00 Acyclovir 500 mg/ Sodium Chloride 100 ml @ 100 mls/hr Q8 IVPB Last administered on 06/30/17 05:55; Admin Dose 100 MLS/HR; Start 06/26/17 at 18:00 Vancomycin HCl (Vancocin) 250 ml @ 125 mls/hr Q12H IVPB Last administered on t 09:08; Admin Dose 125 MLS/HR; Start 06/27/17 at 20:00 Miscellaneous Information (*Rx Drug Level Order Reminder*) 1 ONCE ONCE XX ; Start 07/01/17 at 07:00; Stop 07/01/17 at 07:01 ALEXANDER DARBY Jun 30, 2017 13:03
--- NOTE | 2017-06-30 15:22 | CONS ---
Date/Time of Note Date/Time of Note DATE: 06/30/17 TIME: 15:19 Assessment/Plan Assessment/Plan Chief Complaint/Hosp Course SUBJECTIVE DATA: The patient is awake, afebrile, looks comfortable INDWELLINGS: Right-sided PICC line placed on June 16 and Chopra catheter, vagal nerve stimulator. Abx: Vanco, Rocephin, Acyclovir, Diflucan PHYSICAL EXAMINATION: GENERAL: This is a ill-appearing middle-aged woman who is in no distress. HEENT: Head atraumatic, normocephalic. Sclerae anicteric. Buccal mucosa dry. NECK: Supple. CHEST: Chest rise symmetrical. Breath sounds diminished at the bases. HEART: S1, S2. ABDOMEN: Soft, bowel sounds present. EXTREMITIES: Without cyanosis. ASSESSMENT: 1. Acute meningitis, likely bacterial==> cx neg 2. Status post craniotomy for subdural hematoma (SDH). 3. Ongoing seizures. 4. Developmental delay. PLAN: The patient remains stable. CSF cultures negative==> iven high CSF WBC will treat with abx despite negative cx, follow neurology recommendations, pending cocci, crypto, HSV Discussed with staff Problems: Consultation Date/Type/Reason Admit Date/Time Jun 15, 2017 at 20:20 Initial Consult Date 06/25/17 Type of Consultation: id Referring Provider: ALEXANDER DARBY Exam/Review of Systems Vital Signs Vitals Vital Signs Date Time Temp Pulse Resp B/P Pulse Ox O2 Delivery O2 Flow Rate FiO2 06/30/17 12:23 79 06/30/17 11:43 98.2 18 103/54 95 06/28/17 16:00 Nasal Cannula Intake and Output 06/29/17 06/29/17 06/30/17 15:00 23:00 07:00 Intake Total 150 ml 700 ml 250 ml Output Total 1400 ml 1300 ml Balance 150 ml -700 ml -1050 ml Results Result Diagram: 06/30/17 0608 06/30/17 0608 Results 24 hrs Laboratory Tests Test 06/30/17 06:08 White Blood Count 12.3 #H Red Blood Count 3.12 L Hemoglobin 9.4 L Hematocrit 29.3 L Mean Corpuscular Volume 93.9 Mean Corpuscular Hemoglobin 30.1 Mean Corpuscular Hemoglobin Concent 32.1 Red Cell Distribution Width 13.5 Platelet Count 558 H Mean Platelet Volume 10.4 Neutrophils % 65.3 Lymphocytes % 20.4 Monocytes % 9.9 Eosinophils % 3.0 Basophils % 0.4 Nucleated Red Blood Cells % 0.2 H Neutrophils # (Manual) 8 H Lymphocytes # 2.5 Monocytes # 1.2 H Eosinophils # 0.4 Basophils # 0.1 Nucleated Red Blood Cells # 0.0 Sodium Level 141 Potassium Level 3.5 Chloride Level 107 Carbon Dioxide Level 27 Anion Gap 11 Blood Urea Nitrogen 11 Creatinine 0.60 Glucose Level 100 Calcium Level 8.7 Phosphorus Level 3.8 Magnesium Level 2.0 Total Bilirubin 0.0 L Direct Bilirubin 0.00 Indirect Bilirubin 0.0 Aspartate Amino Transf (AST/SGOT) 22 Alanine Aminotransferase (ALT/SGPT) 26 Alkaline Phosphatase 45 Total Protein 6.4 Albumin 2.7 L Globulin 3.70 H Albumin/Globulin Ratio 0.72 Medications Medications Current Medications Aripiprazole (Abilify) 10 mg DAILY PO Last administered on 06/30/17 09:07; Admin Dose 10 MG; Start 06/16/17 at 09:00 Cholecalciferol (Vitamin D) 1,000 unit DAILY PO Last administered on 06/30/17 09:07; Admin Dose 1,000 UNIT; Start 06/16/17 at 09:00 Lorazepam (Ativan) 2 mg Q1H PRN IV seizure Last administered on 06/22/17 19:27 ; Admin Dose 2 MG; Start 06/15/17 at 20:30 Acetaminophen (Tylenol Tab) 650 mg Q4H PRN PO pain/fever Last administered on 23:31; Admin Dose 650 MG; Start 06/15/17 at 20:30 Morphine Sulfate (morphine) 2 mg Q2H PRN IV pain Last administered on 22:53; Admin Dose 2 MG; Start 06/15/17 at 20:30 Ondansetron HCl (Zofran Inj) 4 mg Q4H PRN IV nausea; Start 06/15/17 at 20:30 Docusate Sodium (Colace) 100 mg DAILY PRN PO CONSTIPATION Last administered on 06/23/17 08:09; Admin Dose 100 MG; Start 06/16/17 at 10:30 Lactulose (Enulose) 20 gm BID PRN PO CONSTIPATION; Start 06/16/17 at 10:30 IV Flush (NS 10 ml) 10 ml PRN PRN IV IV PROTOCOL; Start 06/16/17 at 15:30 Labetalol HCl (Labetalol) 10 mg Q10M PRN IV ELEVATED BLOOD PRESSURE; Start 06/16 at 17:00 Hydralazine HCl (Apresoline) 10 mg Q4H PRN IV ELEVATED BLOOD PRESSURE; Start at 17:00 Neomycin/ Polymyxin/ Bacitracin (Neosporin Topical Oint) 1 applic BID TOP Last administered on 06/30/17 09:16; Admin Dose 1 APPLIC; Start 06/18/17 at 21:00 Acetaminophen 650 mg 650 mg Q6H PRN [place] FEVER Last administered on 06/28/17 20: 41; Admin Dose 650 MG; Start 06/22/17 at 16:30 Valproate Sodium 750 mg/Sodium Chloride 57.5 ml @ 55 mls/hr Q8 IVPB Last administered on 06/30/17 14:20; Admin Dose 55 MLS/HR; Start 06/23/17 at 14:00 Levetiracetam 100 ml @ 400 mls/hr Q12 IVPB Last administered on 06/30/17 08: 49; Admin Dose 400 MLS/HR; Start 06/23/17 at 21:00 Dextrose/Sodium Chloride (D5-NS) 1,000 ml @ 100 mls/hr Q10H IV Last administered on 06/30/17 04:35; Admin Dose 100 MLS/HR; Start 06/23/17 at 12:30 Eye Lubricant (Artificial Tears Oph) 2 drop QID BOTH EYES Last administered on 06/30/17 12:26; Admin Dose 2 DROP; Start 06/24/17 at 17:00 Topiramate (Topamax Sprinkle) 200 mg BID PO Last administered on 06/30/17 09: 08; Admin Dose 200 MG; Start 06/25/17 at 21:00 Lansoprazole 30 mg 30 mg DAILY@06 PO Last administered on 06/30/17 05:56; Admin Dose 30 MG; Start 06/26/17 at 08:00 Ceftriaxone Sodium 50 ml @ 100 mls/hr Q12H IVPB Last administered on 04:34; Admin Dose 100 MLS/HR; Start 06/26/17 at 17:00 Fluconazole 100 ml @ 100 mls/hr Q24H IVPB Last administered on 06/29/17 17:42 ; Admin Dose 100 MLS/HR; Start 06/26/17 at 17:00 Acyclovir 500 mg/ Sodium Chloride 100 ml @ 100 mls/hr Q8 IVPB Last administered on 06/30/17 05:55; Admin Dose 100 MLS/HR; Start 06/26/17 at 18:00 Vancomycin HCl (Vancocin) 250 ml @ 125 mls/hr Q12H IVPB Last administered on 09:08; Admin Dose 125 MLS/HR; Start 06/27/17 at 20:00 Miscellaneous Information (*Rx Drug Level Order Reminder*) 1 ONCE ONCE XX ; Start 07/01/17 at 07:00; Stop 07/01/17 at 07:01 LORI PERES NP Jun 30, 2017 15:22
[2017-06-30 16:39] LABS: VDRL, CSF NON-REACTIVE
[2017-06-30] MEDS: FLUCONAZOLE 200 MG/NS (PMX) 100 ML IVPB SCH (17:04)
[2017-07-01] VITALS (14 sets, daily range): BP systolic 99–144; BP diastolic 54–82; PULSE 77–87; RESP 19–21
[2017-07-01] MEDS: DEXTROSE 5%-0.9% NACL 1,000 ML IV SCH ×3 (01:20→20:50)
[2017-07-01] MEDS: CEFTRIAXONE 2 GM/50 ML (PMX) 50 ML IVPB SCH ×2 (04:56→17:36)
[2017-07-01] MEDS: LANSOPRAZOLE 30 MG CAP PO SCH (05:52)
[2017-07-01] MEDS: VALPROATE INJ 750 MG in SOD CHLORIDE 0.9% 50 ML IVPB SCH ×3 (05:52→22:08)
[2017-07-01] MEDS: ACYCLOVIR 500 MG in SOD CHLORIDE 0.9% 100 ML IVPB SCH ×3 (05:52→22:08)
[2017-07-01 07:56] LABS: WHITE BLOOD COUNT 9.4 10^3/ul (4.8-10.8)
[2017-07-01 07:57] LABS: BASOPHIL # 0.1 10^3/ul (0.0-0.1); BASOPHILS % 0.7 % (0.0-2.0); EOSINOPHILS # 0.5 10^3/ul (0.0-0.5); EOSINOPHILS % 4.8 % (0.0-7.0); HEMATOCRIT 29.5 % (37.0-47.0); HEMOGLOBIN 9.5 g/dl (12.0-16.0); LYMPHOCYTES # 1.6 10^3/ul (0.8-2.9); LYMPHOCYTES % 16.7 % (15.0-51.0); MEAN CORPUSCULAR HEMOGLOBIN 30.5 pg (29.0-33.0); MEAN CORPUSCULAR HGB CONC 32.2 g/dl (32.0-37.0); MEAN CORPUSCULAR VOLUME 94.9 fl (82.0-101.0); MEAN PLATELET VOLUME 10.4 fl (7.4-10.4); MONOCYTE # 1.1 10^3/ul (0.3-0.9); MONOCYTES % 12.1 % (0.0-11.0); NEUTROPHILS % 63.4 % (39.0-77.0); NUCLEATED RED BLOOD CELLS% 0.2 /100WBC (0.0-0.0); PLATELET COUNT 591 10^3/UL (140-415); RED BLOOD COUNT 3.11 10^6/ul (4.20-5.40); RED CELL DISTRIBUTION WIDTH 13.6 % (11.5-14.5)
[2017-07-01] MEDS: VANCOMYCIN 1 GM in NS 250 ML IVPB SCH (08:00)
[2017-07-01] MEDS: METOCLOPRAMIDE 10 MG INJ IV SCH ×3 (08:02→17:36)
[2017-07-01 08:12] LABS: CALCIUM 8.5 mg/dl (8.4-10.2); CREATININE 0.53 mg/dl (0.44-1.00); POTASSIUM 3.5 mmol/L (3.5-5.1)
[2017-07-01] MEDS: LEVETIRACETAM 1500 MG (PMX) 100 ML IVPB SCH ×2 (09:00→20:50)
[2017-07-01] MEDS ORDERED: POTASSIUM CHLORIDE 20 MEQ POWDER FOR ORAL SOLN PO ONE (09:30)
[2017-07-01] MEDS: CHOLECALCIFEROL 1,000 UNIT TAB PO SCH (10:03)
[2017-07-01] MEDS: NEOMYC/POLYMYX/BACIT 30 GM OINT TOP SCH ×2 (10:04→20:49)
[2017-07-01] MEDS: ARIPIPRAZOLE 10 MG TAB PO SCH (10:04)
[2017-07-01] MEDS: TOPIRAMATE SPRINKLE 25 MG CAP PO SCH ×2 (10:04→20:50)
[2017-07-01] MEDS: ARTIFICIAL TEARS 15 ML OPH BOTH EYES SCH ×4 (10:05→20:50)
[2017-07-01] MEDS ORDERED: MAGNESIUM SULFATE 1 GM/D5W 100 ML IVPB ONE (10:30)
--- NOTE | 2017-07-01 13:00 | PN ---
Date/Time of Note Date/Time of Note DATE: 07/01/17 TIME: 12:56 Assessment/Plan VTE Prophylaxis VTE Prophylaxis Intervention: SCD's Lines/Catheters IV C[facility]ter Type ([facility]): PICC Line Central line still needed: Yes (For IV access) Urinary Cath still in place: Yes Reason Cath still needed: other (indicate) (Monitor urine output) Assessment/Plan Assessment/Plan 51-year-old female with: 1. Right subdural hematoma, status post subdural hematoma drainage POD#12. No seizure activity reported for the past 24 hours. Much improved encephalopathy and lethargy. Afebrile for 48hours now, Repeat CAT scan of the head last week stable. All cultures peripheral blood cultures, urine culture, CSF culture negative so far. Of note all these cultures were taken prior to antibiotic initiation. VDRL from CSF negative. Awaiting fungal cultures and HSV PCR. Per infectious disease, keeping patient on broad-spectrum antibiotics until those final cultures and PCR's are available Resolved leukocytosis noted today, hemodynamically stable. Off isolation. 2. Seizure disorder, refractory to medications apparently: Appreciate recommendations from neurology , continue current medication. Repeat CAT scan of the head, stable. Status post vagal nerve stimulator. On treatment for suspected meningitis, bacterial, fungal versus viral, although bacterial cultures negative. Patient will have to follow-up with a tertiary neurology regarding adjustment of her vagal nerve stimulator to help with seizures refractory to medications. For now due to the fact that she is limited by her IPA to the network there contracted to, we were attempting a transfer to [facility] where continuous EEG is available. Patient was about to be transferred to [facility] on 06/26, however in the setting of fevers accepting physician have declined to take the patient until she defervescences for 24 hours at least and she is on adequate treatment for this suspected meningitis. We will recontact them again for hopefully transferring the next 24 hours if the patient remains afebrile and we get close to final recommendations for antibiotics from infectious disease. I will attempt transfer again today or tomorrow at the latest as long as [facility] can also adjust her vagal nerve stimulator if possible and are willing to take the patient on multiple antibiotics. 3. Developmental delay: Close neurological monitoring given acute traumatic head injury with right subdural hematoma. Continue outpatient medications. 4. GERD: Continue Protonix 5. Chronic constipation: Continue outpatient regimen as well as patient able to take p.o. Prophylaxis: Protonix for GI prophylaxis, SCDs to lower extremity for DVT prophylaxis Disposition: Status post right subdural hematoma evacuation, drain removed 11 days ago. Repeat CAT scan stable, follow-up fungal cultures and viral PCR from CSF for further adjustment of antibiotics. Hopefully can be transferred to [facility] in the next 24 hours. Subjective 24 Hr Interval Summary Free Text/Dictation Patient now afebrile for at least 48 hours, will clarify capabilities of [facility] and current clinical status of the patient and if patient is except that there we will proceed with transfer as long as the mother is agreeable. Exam/Review of Systems Vital Signs Vitals Vital Signs Date Time Temp Pulse Resp B/P Pulse Ox O2 Delivery O2 Flow Rate FiO2 07/01/17 12:18 85 07/01/17 11:36 98.0 20 109/55 100 06/28/17 16:00 Nasal Cannula Intake and Output 06/30/17 06/30/17 07/01/17 14:59 22:59 06:59 Intake Total 400 ml 1737.5 ml 1620 ml Output Total 2000 ml 1300 ml Balance 400 ml -262.5 ml 320 ml Exam Constitutional: alert, frail, other (Lethargic) Respiratory: clear to auscultation, normal air movement Cardiovascular: nl pulses, regular rate and rhythm Gastrointestinal: non-tender, soft Musculoskeletal: nl extremities to inspection Extremities: normal pulses, other (No edema, clubbing or cyanosis) Neurological: lethargic, other (More or less slurred speech but per mother has been a baseline for her) Results Result Diagram: 07/01/17 0646 07/01/17 0646 Results 24 hrs Laboratory Tests Test 07/01/17 06:46 White Blood Count 9.4 # Red Blood Count 3.11 L Hemoglobin 9.5 L Hematocrit 29.5 L Mean Corpuscular Volume 94.9 Mean Corpuscular Hemoglobin 30.5 Mean Corpuscular Hemoglobin Concent 32.2 Red Cell Distribution Width 13.6 Platelet Count 591 H Mean Platelet Volume 10.4 Neutrophils % 63.4 Lymphocytes % 16.7 Monocytes % 12.1 H Eosinophils % 4.8 Basophils % 0.7 Nucleated Red Blood Cells % 0.2 H Neutrophils # (Manual) 6 Lymphocytes # 1.6 Monocytes # 1.1 H Eosinophils # 0.5 Basophils # 0.1 Nucleated Red Blood Cells # 0.0 Sodium Level 145 H Potassium Level 3.5 Chloride Level 107 Carbon Dioxide Level 27 Anion Gap 15 Blood Urea Nitrogen 9 Creatinine 0.53 Glucose Level 89 Calcium Level 8.5 Magnesium Level 1.9 Vancomycin Level Trough 9.0 L Medications Medications Current Medications Aripiprazole (Abilify) 10 mg DAILY PO Last administered on 07/01/17 10:04; Admin Dose 10 MG; Start 06/16/17 at 09:00 Cholecalciferol (Vitamin D) 1,000 unit DAILY PO Last administered on 07/01/17 10:03; Admin Dose 1,000 UNIT; Start 06/16/17 at 09:00 Lorazepam (Ativan) 2 mg Q1H PRN IV seizure Last administered on 06/22/17 19:27 ; Admin Dose 2 MG; Start 06/15/17 at 20:30 Acetaminophen (Tylenol Tab) 650 mg Q4H PRN PO pain/fever Last administered on 23:31; Admin Dose 650 MG; Start 06/15/17 at 20:30 Morphine Sulfate (morphine) 2 mg Q2H PRN IV pain Last administered on 22:53; Admin Dose 2 MG; Start 06/15/17 at 20:30 Ondansetron HCl (Zofran Inj) 4 mg Q4H PRN IV nausea; Start 06/15/17 at 20:30 Docusate Sodium (Colace) 100 mg DAILY PRN PO CONSTIPATION Last administered on 06/23/17 08:09; Admin Dose 100 MG; Start 06/16/17 at 10:30 Lactulose (Enulose) 20 gm BID PRN PO CONSTIPATION; Start 06/16/17 at 10:30 IV Flush (NS 10 ml) 10 ml PRN PRN IV IV PROTOCOL; Start 06/16/17 at 15:30 Labetalol HCl (Labetalol) 10 mg Q10M PRN IV ELEVATED BLOOD PRESSURE; Start 06/16 at 17:00 Hydralazine HCl (Apresoline) 10 mg Q4H PRN IV ELEVATED BLOOD PRESSURE; Start at 17:00 Neomycin/ Polymyxin/ Bacitracin (Neosporin Topical Oint) 1 applic BID TOP Last administered on 07/01/17 10:04; Admin Dose 1 APPLIC; Start 06/18/17 at 21:00 Acetaminophen 650 mg 650 mg Q6H PRN [place] FEVER Last administered on 06/28/17 20: 41; Admin Dose 650 MG; Start 06/22/17 at 16:30 Valproate Sodium 750 mg/Sodium Chloride 57.5 ml @ 55 mls/hr Q8 IVPB Last administered on 07/01/17 12:15; Admin Dose 55 MLS/HR; Start 06/23/17 at 14:00 Levetiracetam 100 ml @ 400 mls/hr Q12 IVPB Last administered on 07/01/17 09: 00; Admin Dose 400 MLS/HR; Start 06/23/17 at 21:00 Dextrose/Sodium Chloride (D5-NS) 1,000 ml @ 100 mls/hr Q10H IV Last administered on 07/01/17 09:00; Admin Dose 100 MLS/HR; Start 06/23/17 at 12:30 Eye Lubricant (Artificial Tears Oph) 2 drop QID BOTH EYES Last administered on 07/01/17 12:15; Admin Dose 2 DROP; Start 06/24/17 at 17:00 Topiramate (Topamax Sprinkle) 200 mg BID PO Last administered on 07/01/17 10: 04; Admin Dose 200 MG; Start 06/25/17 at 21:00 Lansoprazole 30 mg 30 mg DAILY@06 PO Last administered on 07/01/17 05:52; Admin Dose 30 MG; Start 06/26/17 at 08:00 Ceftriaxone Sodium 50 ml @ 100 mls/hr Q12H IVPB Last administered on 04:56; Admin Dose 100 MLS/HR; Start 06/26/17 at 17:00 Fluconazole 100 ml @ 100 mls/hr Q24H IVPB Last administered on 06/30/17 17:04 ; Admin Dose 100 MLS/HR; Start 06/26/17 at 17:00 Acyclovir 500 mg/ Sodium Chloride 100 ml @ 100 mls/hr Q8 IVPB Last administered on 07/01/17 12:15; Admin Dose 100 MLS/HR; Start 06/26/17 at 18:00 Vancomycin HCl/ Sodium Chloride (Vancocin/NS) 150 ml @ 75 mls/hr Q8H IVPB ; Start 07/01/17 at 16:00 Miscellaneous Information (*Rx Drug Level Order Reminder*) VANCOMYCIN TROUGH AT 1500 ONCE ONCE XX ; Start 07/02/17 at 15:00; Stop 07/02/17 at 15:01 ALEXANDER DARBY Jul 01, 2017 12:59
[2017-07-01] MEDS: VANCOMYCIN 750 MG in SOD CHLORIDE 0.9% 150 ML IVPB SCH (14:56)
--- NOTE | 2017-07-01 16:30 | CONS ---
Date/Time of Note Date/Time of Note DATE: 07/01/17 TIME: 16:28 Assessment/Plan Assessment/Plan Chief Complaint/Hosp Course SUBJECTIVE DATA: The patient is awake, follows commands, afebrile, looks comfortable INDWELLINGS: Right-sided PICC line placed on June 16 and Chopra catheter, vagal nerve stimulator. Abx: Vanco, Rocephin, Acyclovir, Diflucan PHYSICAL EXAMINATION: GENERAL: This is a ill-appearing middle-aged woman who is in no distress. HEENT: Head atraumatic, normocephalic. Sclerae anicteric. Buccal mucosa dry. NECK: Supple. CHEST: Chest rise symmetrical. Breath sounds diminished at the bases. HEART: S1, S2. ABDOMEN: Soft, bowel sounds present. EXTREMITIES: Without cyanosis. ASSESSMENT: 1. Acute meningitis, likely bacterial==> cx neg 2. Status post craniotomy for subdural hematoma (SDH). 3. Ongoing seizures. 4. Developmental delay. PLAN: The patient remains stable. Pending final work up, continue abx, f/u neurology rec-s Discussed with staff/family at bedside Problems: Consultation Date/Type/Reason Admit Date/Time Jun 15, 2017 at 20:20 Initial Consult Date 06/25/17 Type of Consultation: ID Referring Provider: ALEXANDER DARBY Exam/Review of Systems Vital Signs Vitals Vital Signs Date Time Temp Pulse Resp B/P Pulse Ox O2 Delivery O2 Flow Rate FiO2 07/01/17 16:24 83 07/01/17 15:37 97.8 20 100/57 99 06/28/17 16:00 Nasal Cannula Intake and Output 06/30/17 06/30/17 07/01/17 15:00 23:00 07:00 Intake Total 400 ml 1737.5 ml 1620 ml Output Total 2000 ml 1300 ml Balance 400 ml -262.5 ml 320 ml Results Result Diagram: 07/01/17 0646 07/01/17 0646 Results 24 hrs Laboratory Tests Test 07/01/17 06:46 White Blood Count 9.4 # Red Blood Count 3.11 L Hemoglobin 9.5 L Hematocrit 29.5 L Mean Corpuscular Volume 94.9 Mean Corpuscular Hemoglobin 30.5 Mean Corpuscular Hemoglobin Concent 32.2 Red Cell Distribution Width 13.6 Platelet Count 591 H Mean Platelet Volume 10.4 Neutrophils % 63.4 Lymphocytes % 16.7 Monocytes % 12.1 H Eosinophils % 4.8 Basophils % 0.7 Nucleated Red Blood Cells % 0.2 H Neutrophils # (Manual) 6 Lymphocytes # 1.6 Monocytes # 1.1 H Eosinophils # 0.5 Basophils # 0.1 Nucleated Red Blood Cells # 0.0 Sodium Level 145 H Potassium Level 3.5 Chloride Level 107 Carbon Dioxide Level 27 Anion Gap 15 Blood Urea Nitrogen 9 Creatinine 0.53 Glucose Level 89 Calcium Level 8.5 Magnesium Level 1.9 Vancomycin Level Trough 9.0 L Medications Medications Current Medications Aripiprazole (Abilify) 10 mg DAILY PO Last administered on 07/01/17 10:04; Admin Dose 10 MG; Start 06/16/17 at 09:00 Cholecalciferol (Vitamin D) 1,000 unit DAILY PO Last administered on 07/01/17 10:03; Admin Dose 1,000 UNIT; Start 06/16/17 at 09:00 Lorazepam (Ativan) 2 mg Q1H PRN IV seizure Last administered on 06/22/17 19:27 ; Admin Dose 2 MG; Start 06/15/17 at 20:30 Acetaminophen (Tylenol Tab) 650 mg Q4H PRN PO pain/fever Last administered on 23:31; Admin Dose 650 MG; Start 06/15/17 at 20:30 Morphine Sulfate (morphine) 2 mg Q2H PRN IV pain Last administered on 22:53; Admin Dose 2 MG; Start 06/15/17 at 20:30 Ondansetron HCl (Zofran Inj) 4 mg Q4H PRN IV nausea; Start 06/15/17 at 20:30 Docusate Sodium (Colace) 100 mg DAILY PRN PO CONSTIPATION Last administered on 06/23/17 08:09; Admin Dose 100 MG; Start 06/16/17 at 10:30 Lactulose (Enulose) 20 gm BID PRN PO CONSTIPATION; Start 06/16/17 at 10:30 IV Flush (NS 10 ml) 10 ml PRN PRN IV IV PROTOCOL; Start 06/16/17 at 15:30 Labetalol HCl (Labetalol) 10 mg Q10M PRN IV ELEVATED BLOOD PRESSURE; Start 06/16 at 17:00 Hydralazine HCl (Apresoline) 10 mg Q4H PRN IV ELEVATED BLOOD PRESSURE; Start at 17:00 Neomycin/ Polymyxin/ Bacitracin (Neosporin Topical Oint) 1 applic BID TOP Last administered on 07/01/17 10:04; Admin Dose 1 APPLIC; Start 06/18/17 at 21:00 Acetaminophen 650 mg 650 mg Q6H PRN [place] FEVER Last administered on 06/28/17 20: 41; Admin Dose 650 MG; Start 06/22/17 at 16:30 Valproate Sodium 750 mg/Sodium Chloride 57.5 ml @ 55 mls/hr Q8 IVPB Last administered on 07/01/17 12:15; Admin Dose 55 MLS/HR; Start 06/23/17 at 14:00 Levetiracetam 100 ml @ 400 mls/hr Q12 IVPB Last administered on 07/01/17 09: 00; Admin Dose 400 MLS/HR; Start 06/23/17 at 21:00 Dextrose/Sodium Chloride (D5-NS) 1,000 ml @ 100 mls/hr Q10H IV Last administered on 07/01/17 09:00; Admin Dose 100 MLS/HR; Start 06/23/17 at 12:30 Eye Lubricant (Artificial Tears Oph) 2 drop QID BOTH EYES Last administered on 07/01/17 12:15; Admin Dose 2 DROP; Start 06/24/17 at 17:00 Topiramate (Topamax Sprinkle) 200 mg BID PO Last administered on 07/01/17 10: 04; Admin Dose 200 MG; Start 06/25/17 at 21:00 Lansoprazole 30 mg 30 mg DAILY@06 PO Last administered on 07/01/17 05:52; Admin Dose 30 MG; Start 06/26/17 at 08:00 Ceftriaxone Sodium 50 ml @ 100 mls/hr Q12H IVPB Last administered on 04:56; Admin Dose 100 MLS/HR; Start 06/26/17 at 17:00 Fluconazole 100 ml @ 100 mls/hr Q24H IVPB Last administered on 06/30/17 17:04 ; Admin Dose 100 MLS/HR; Start 06/26/17 at 17:00 Acyclovir 500 mg/ Sodium Chloride 100 ml @ 100 mls/hr Q8 IVPB Last administered on 07/01/17 12:15; Admin Dose 100 MLS/HR; Start 06/26/17 at 18:00 Vancomycin HCl/ Sodium Chloride (Vancocin/NS) 150 ml @ 75 mls/hr Q8H IVPB Last administered on 07/01/17 14:56; Admin Dose 75 MLS/HR; Start 07/01/17 at 16 :00 Miscellaneous Information (*Rx Drug Level Order Reminder*) VANCOMYCIN TROUGH AT 1500 ONCE ONCE XX ; Start 07/02/17 at 15:00; Stop 07/02/17 at 15:01 LORI PERES NP Jul 01, 2017 16:30
[2017-07-01] MEDS: FLUCONAZOLE 200 MG/NS (PMX) 100 ML IVPB SCH (17:37)
[2017-07-01 21:52] LABS: CRYPTOCOCCAL ANTIGEN - SOURCE Serum
[2017-07-01] MEDS: ACETAMINOPHEN 325 MG TAB PO PRN (23:27)
[2017-07-02] VITALS (10 sets, daily range): BP systolic 92–125; BP diastolic 50–74; PULSE 67–104; RESP 18–19
[2017-07-02] MEDS: VANCOMYCIN 750 MG in SOD CHLORIDE 0.9% 150 ML IVPB SCH ×4 (00:05→23:47)
[2017-07-02] MEDS: CEFTRIAXONE 2 GM/50 ML (PMX) 50 ML IVPB SCH ×2 (05:06→17:00)
[2017-07-02] MEDS: LANSOPRAZOLE 30 MG CAP PO SCH (06:23)
[2017-07-02] MEDS: ACYCLOVIR 500 MG in SOD CHLORIDE 0.9% 100 ML IVPB SCH ×3 (06:23→21:59)
[2017-07-02] MEDS: VALPROATE INJ 750 MG in SOD CHLORIDE 0.9% 50 ML IVPB SCH ×3 (06:24→21:57)
[2017-07-02] MEDS: DEXTROSE 5%-0.9% NACL 1,000 ML IV SCH ×2 (06:30→16:32)
[2017-07-02] MEDS: METOCLOPRAMIDE 10 MG INJ IV SCH ×3 (09:25→17:25)
[2017-07-02] MEDS: ARTIFICIAL TEARS 15 ML OPH BOTH EYES SCH ×4 (09:25→20:55)
[2017-07-02] MEDS: ARIPIPRAZOLE 10 MG TAB PO SCH (09:26)
[2017-07-02] MEDS: LEVETIRACETAM 1500 MG (PMX) 100 ML IVPB SCH ×2 (09:26→20:55)
[2017-07-02] MEDS: TOPIRAMATE SPRINKLE 25 MG CAP PO SCH ×2 (09:26→21:58)
[2017-07-02] MEDS: NEOMYC/POLYMYX/BACIT 30 GM OINT TOP SCH ×2 (09:27→20:56)
[2017-07-02] MEDS: CHOLECALCIFEROL 1,000 UNIT TAB PO SCH (09:27)
[2017-07-02 11:38] LABS: BASOPHIL # 0.1 10^3/ul (0.0-0.1); BASOPHILS % 0.6 % (0.0-2.0); EOSINOPHILS # 0.4 10^3/ul (0.0-0.5); EOSINOPHILS % 4.2 % (0.0-7.0); HEMATOCRIT 29.2 % (37.0-47.0); HEMOGLOBIN 9.4 g/dl (12.0-16.0); LYMPHOCYTES # 1.8 10^3/ul (0.8-2.9); LYMPHOCYTES % 21.6 % (15.0-51.0); MEAN CORPUSCULAR HEMOGLOBIN 30.6 pg (29.0-33.0); MEAN CORPUSCULAR HGB CONC 32.2 g/dl (32.0-37.0); MEAN CORPUSCULAR VOLUME 95.1 fl (82.0-101.0); MEAN PLATELET VOLUME 10.5 fl (7.4-10.4); MONOCYTE # 0.8 10^3/ul (0.3-0.9); NEUTROPHILS % 63.4 % (39.0-77.0); NUCLEATED RED BLOOD CELLS% 0.5 /100WBC (0.0-0.0); PLATELET COUNT 563 10^3/UL (140-415); RED BLOOD COUNT 3.07 10^6/ul (4.20-5.40); RED CELL DISTRIBUTION WIDTH 14.2 % (11.5-14.5); WHITE BLOOD COUNT 8.5 10^3/ul (4.8-10.8)
[2017-07-02 11:54] LABS: CALCIUM 8.7 mg/dl (8.4-10.2); CREATININE 0.57 mg/dl (0.44-1.00); POTASSIUM 3.8 mmol/L (3.5-5.1)
--- NOTE | 2017-07-02 15:05 | CONS ---
Date/Time of Note Date/Time of Note DATE: 07/02/17 TIME: 15:04 Assessment/Plan Assessment/Plan Chief Complaint/Hosp Course SUBJECTIVE DATA: The patient is awake, follows commands, afebrile, looks comfortable INDWELLINGS: Right-sided PICC line placed on June 16 and Chopra catheter, vagal nerve stimulator. Abx: Vanco, Rocephin, Acyclovir, Diflucan PHYSICAL EXAMINATION: GENERAL: This is a ill-appearing middle-aged woman who is in no distress. HEENT: Head atraumatic, normocephalic. Sclerae anicteric. Buccal mucosa dry. NECK: Supple. CHEST: Chest rise symmetrical. Breath sounds diminished at the bases. HEART: S1, S2. ABDOMEN: Soft, bowel sounds present. EXTREMITIES: Without cyanosis. ASSESSMENT: 1. Acute meningitis, likely bacterial==> cx neg 2. Status post craniotomy for subdural hematoma (SDH). 3. Ongoing seizures. 4. Developmental delay. PLAN: The patient remains stable. Cryptococcal serology neg, pending cocci/HSV , continue abx, f/u neurology rec-s Discussed with staff Problems: Consultation Date/Type/Reason Admit Date/Time Jun 15, 2017 at 20:20 Initial Consult Date 06/25/17 Type of Consultation: ID Referring Provider: ALEXANDER DARBY Exam/Review of Systems Vital Signs Vitals Vital Signs Date Time Temp Pulse Resp B/P Pulse Ox O2 Delivery O2 Flow Rate FiO2 07/02/17 12:02 79 07/02/17 11:55 98.5 19 92/50 95 06/28/17 16:00 Nasal Cannula Intake and Output 07/01/17 07/01/17 07/02/17 15:00 23:00 07:00 Intake Total 4000 ml 457.5 ml Output Total 700 ml 1250 ml Balance 3300 ml -792.5 ml Results Result Diagram: 07/02/17 1057 07/02/17 1057 Results 24 hrs Laboratory Tests Test 07/02/17 10:57 White Blood Count 8.5 Red Blood Count 3.07 L Hemoglobin 9.4 L Hematocrit 29.2 L Mean Corpuscular Volume 95.1 Mean Corpuscular Hemoglobin 30.6 Mean Corpuscular Hemoglobin Concent 32.2 Red Cell Distribution Width 14.2 Platelet Count 563 H Mean Platelet Volume 10.5 H Neutrophils % 63.4 Lymphocytes % 21.6 Monocytes % 9.0 Eosinophils % 4.2 Basophils % 0.6 Nucleated Red Blood Cells % 0.5 H Neutrophils # (Manual) 5 Lymphocytes # 1.8 Monocytes # 0.8 Eosinophils # 0.4 Basophils # 0.1 Nucleated Red Blood Cells # 0.0 Sodium Level 144 Potassium Level 3.8 Chloride Level 106 Carbon Dioxide Level 28 Anion Gap 14 Blood Urea Nitrogen 10 Creatinine 0.57 Glucose Level 98 Calcium Level 8.7 Magnesium Level 2.0 Medications Medications Current Medications Aripiprazole (Abilify) 10 mg DAILY PO Last administered on 07/02/17 09:26; Admin Dose 10 MG; Start 06/16/17 at 09:00 Cholecalciferol (Vitamin D) 1,000 unit DAILY PO Last administered on 07/02/17 09:27; Admin Dose 1,000 UNIT; Start 06/16/17 at 09:00 Lorazepam (Ativan) 2 mg Q1H PRN IV seizure Last administered on 06/22/17 19:27 ; Admin Dose 2 MG; Start 06/15/17 at 20:30 Acetaminophen (Tylenol Tab) 650 mg Q4H PRN PO pain/fever Last administered on 23:27; Admin Dose 650 MG; Start 06/15/17 at 20:30 Morphine Sulfate (morphine) 2 mg Q2H PRN IV pain Last administered on 22:53; Admin Dose 2 MG; Start 06/15/17 at 20:30 Ondansetron HCl (Zofran Inj) 4 mg Q4H PRN IV nausea; Start 06/15/17 at 20:30 Docusate Sodium (Colace) 100 mg DAILY PRN PO CONSTIPATION Last administered on 06/23/17 08:09; Admin Dose 100 MG; Start 06/16/17 at 10:30 Lactulose (Enulose) 20 gm BID PRN PO CONSTIPATION; Start 06/16/17 at 10:30 IV Flush (NS 10 ml) 10 ml PRN PRN IV IV PROTOCOL; Start 06/16/17 at 15:30 Labetalol HCl (Labetalol) 10 mg Q10M PRN IV ELEVATED BLOOD PRESSURE; Start 06/16 at 17:00 Hydralazine HCl (Apresoline) 10 mg Q4H PRN IV ELEVATED BLOOD PRESSURE; Start at 17:00 Neomycin/ Polymyxin/ Bacitracin (Neosporin Topical Oint) 1 applic BID TOP Last administered on 07/02/17 09:27; Admin Dose 1 APPLIC; Start 06/18/17 at 21:00 Acetaminophen 650 mg 650 mg Q6H PRN [place] FEVER Last administered on 06/28/17 20: 41; Admin Dose 650 MG; Start 06/22/17 at 16:30 Valproate Sodium 750 mg/Sodium Chloride 57.5 ml @ 55 mls/hr Q8 IVPB Last administered on 07/02/17 13:49; Admin Dose 55 MLS/HR; Start 06/23/17 at 14:00 Levetiracetam 100 ml @ 400 mls/hr Q12 IVPB Last administered on 07/02/17 09: 26; Admin Dose 400 MLS/HR; Start 06/23/17 at 21:00 Dextrose/Sodium Chloride (D5-NS) 1,000 ml @ 100 mls/hr Q10H IV Last administered on 07/01/17 20:50; Admin Dose 100 MLS/HR; Start 06/23/17 at 12:30 Eye Lubricant (Artificial Tears Oph) 2 drop QID BOTH EYES Last administered on 07/02/17 13:49; Admin Dose 2 DROP; Start 06/24/17 at 17:00 Topiramate (Topamax Sprinkle) 200 mg BID PO Last administered on 07/02/17 09: 26; Admin Dose 200 MG; Start 06/25/17 at 21:00 Lansoprazole 30 mg 30 mg DAILY@06 PO Last administered on 07/02/17 06:23; Admin Dose 30 MG; Start 06/26/17 at 08:00 Ceftriaxone Sodium 50 ml @ 100 mls/hr Q12H IVPB Last administered on 05:06; Admin Dose 100 MLS/HR; Start 06/26/17 at 17:00 Fluconazole 100 ml @ 100 mls/hr Q24H IVPB Last administered on 07/01/17 17:37 ; Admin Dose 100 MLS/HR; Start 06/26/17 at 17:00 Acyclovir 500 mg/ Sodium Chloride 100 ml @ 100 mls/hr Q8 IVPB Last administered on 07/02/17 06:23; Admin Dose 100 MLS/HR; Start 06/26/17 at 18:00 Vancomycin HCl/ Sodium Chloride (Vancocin/NS) 150 ml @ 75 mls/hr Q8H IVPB Last administered on 07/02/17 08:00; Admin Dose 75 MLS/HR; Start 07/01/17 at 16 :00 Miscellaneous Information (*Rx Drug Level Order Reminder*) VANCOMYCIN TROUGH AT 1500 ONCE ONCE XX ; Start 07/02/17 at 15:00; Stop 07/02/17 at 15:01 LORI PERES NP Jul 02, 2017 15:05
--- NOTE | 2017-07-02 16:45 | PN ---
Date/Time of Note Date/Time of Note DATE: 07/02/17 TIME: 16:37 Assessment/Plan VTE Prophylaxis VTE Prophylaxis Intervention: SCD's Lines/Catheters IV Catheter Type (from [place]): PICC Line Central line still needed: Yes (For IV access) Urinary Cath still in place: Yes Reason Cath still needed: other (indicate) (Urine output monitoring) Assessment/Plan Assessment/Plan 51-year-old female with: 1. Right subdural hematoma, status post subdural hematoma drainage POD#12. No seizure activity reported for the past 24 hours. Much improved encephalopathy and lethargy. Afebrile for the past 3 days now, Repeat CAT scan of the head last week stable. All cultures peripheral blood cultures, urine culture, CSF culture negative so far. Of note all these cultures were taken prior to antibiotic initiation. VDRL from CSF negative. Cryptococcal serologies negative, awaiting fungal cultures and HSV PCR. Per infectious disease, keeping patient on broad-spectrum antibiotics until those final cultures and PCR's are available Resolved leukocytosis noted today, hemodynamically stable. Off isolation. 2. Seizure disorder, refractory to medications apparently: Appreciate recommendations from neurology , continue current medication. Patient occasionally has what may be either tremors versus tics versus partial seizures. Repeat CAT scan of the head, stable. Status post vagal nerve stimulator. On treatment for suspected meningitis, bacterial, fungal versus viral, although bacterial cultures negative. Patient will have to follow-up with a tertiary neurology regarding adjustment of her vagal nerve stimulator to help with seizures refractory to medications. For now due to the fact that she is limited by her IPA to the network there contracted to, we were attempting a transfer to [facility] where continuous EEG is available. Patient was about to be transferred to [facility] on 06/26, however in the setting of fevers accepting physician have declined to take the patient until she defervescences for 24 hours at least and she is on adequate treatment for this suspected meningitis. We have recontacted them again for hopefully transferring the next 24 hours if the patient remains afebrile and we get close to final recommendations for antibiotics from infectious disease. I will attempt transfer again today or tomorrow as long as [facility] can also adjust her vagal nerve stimulator if possible and are willing to take the patient on multiple antibiotics. So far no bed available per [place] case management 3. Developmental delay: Close neurological monitoring given acute traumatic head injury with right subdural hematoma. Continue outpatient medications. 4. GERD: Continue Protonix 5. Chronic constipation: Continue outpatient regimen as well as patient able to take p.o. Prophylaxis: Protonix for GI prophylaxis, SCDs to lower extremity for DVT prophylaxis Disposition: Status post right subdural hematoma evacuation, drain removed 11 days ago. Repeat CAT scan stable, follow-up fungal cultures and viral PCR from CSF for further adjustment of antibiotics. Hopefully can be transferred to [facility] in the next 24 hours if bed available. Subjective 24 Hr Interval Summary Free Text/Dictation Patient much more alert, Conversant with the mother Afebrile, white blood cell count within normal on broad-spectrum antibiotics No seizures today reported so far Awaiting bed at [facility] for 24 hour continuous EEG and also vagal nerve stimulator adjustment Exam/Review of Systems Vital Signs Vitals Vital Signs Date Time Temp Pulse Resp B/P Pulse Ox O2 Delivery O2 Flow Rate FiO2 07/02/17 16:12 89 07/02/17 11:55 98.5 19 92/50 95 06/28/17 16:00 Nasal Cannula Intake and Output 07/01/17 07/01/17 07/02/17 15:00 23:00 07:00 Intake Total 4000 ml 457.5 ml Output Total 700 ml 1250 ml Balance 3300 ml -792.5 ml Exam Constitutional: alert, oriented (x2) Respiratory: clear to auscultation, normal air movement Cardiovascular: nl pulses, regular rate and rhythm Gastrointestinal: non-tender, soft Musculoskeletal: nl extremities to inspection Extremities: normal pulses, other (No edema, clubbing or cyanosis) Neurological: EYEGLASS LENS CUTTER II-XII intact, other (Generalized weakness, speech slow and slightly slurred which is baseline, much more awake and alert) Results Result Diagram: 07/02/17 1057 07/02/17 1057 Results 24 hrs Laboratory Tests Test 07/02/17 10:57 07/02/17 14:50 White Blood Count 8.5 Red Blood Count 3.07 L Hemoglobin 9.4 L Hematocrit 29.2 L Mean Corpuscular Volume 95.1 Mean Corpuscular Hemoglobin 30.6 Mean Corpuscular Hemoglobin Concent 32.2 Red Cell Distribution Width 14.2 Platelet Count 563 H Mean Platelet Volume 10.5 H Neutrophils % 63.4 Lymphocytes % 21.6 Monocytes % 9.0 Eosinophils % 4.2 Basophils % 0.6 Nucleated Red Blood Cells % 0.5 H Neutrophils # (Manual) 5 Lymphocytes # 1.8 Monocytes # 0.8 Eosinophils # 0.4 Basophils # 0.1 Nucleated Red Blood Cells # 0.0 Sodium Level 144 Potassium Level 3.8 Chloride Level 106 Carbon Dioxide Level 28 Anion Gap 14 Blood Urea Nitrogen 10 Creatinine 0.57 Glucose Level 98 Calcium Level 8.7 Magnesium Level 2.0 Vancomycin Level Trough 15.7 Medications Medications Current Medications Aripiprazole (Abilify) 10 mg DAILY PO Last administered on 07/02/17 09:26; Admin Dose 10 MG; Start 06/16/17 at 09:00 Cholecalciferol (Vitamin D) 1,000 unit DAILY PO Last administered on 07/02/17 09:27; Admin Dose 1,000 UNIT; Start 06/16/17 at 09:00 Lorazepam (Ativan) 2 mg Q1H PRN IV seizure Last administered on 06/22/17 19:27 ; Admin Dose 2 MG; Start 06/15/17 at 20:30 Acetaminophen (Tylenol Tab) 650 mg Q4H PRN PO pain/fever Last administered on 23:27; Admin Dose 650 MG; Start 06/15/17 at 20:30 Morphine Sulfate (morphine) 2 mg Q2H PRN IV pain Last administered on 22:53; Admin Dose 2 MG; Start 06/15/17 at 20:30 Ondansetron HCl (Zofran Inj) 4 mg Q4H PRN IV nausea; Start 06/15/17 at 20:30 Docusate Sodium (Colace) 100 mg DAILY PRN PO CONSTIPATION Last administered on 06/23/17 08:09; Admin Dose 100 MG; Start 06/16/17 at 10:30 Lactulose (Enulose) 20 gm BID PRN PO CONSTIPATION; Start 06/16/17 at 10:30 IV Flush (NS 10 ml) 10 ml PRN PRN IV IV PROTOCOL; Start 06/16/17 at 15:30 Labetalol HCl (Labetalol) 10 mg Q10M PRN IV ELEVATED BLOOD PRESSURE; Start 06/16 at 17:00 Hydralazine HCl (Apresoline) 10 mg Q4H PRN IV ELEVATED BLOOD PRESSURE; Start at 17:00 Neomycin/ Polymyxin/ Bacitracin (Neosporin Topical Oint) 1 applic BID TOP Last administered on 07/02/17 09:27; Admin Dose 1 APPLIC; Start 06/18/17 at 21:00 Acetaminophen 650 mg 650 mg Q6H PRN [place] FEVER Last administered on 06/28/17 20: 41; Admin Dose 650 MG; Start 06/22/17 at 16:30 Valproate Sodium 750 mg/Sodium Chloride 57.5 ml @ 55 mls/hr Q8 IVPB Last administered on 07/02/17 13:49; Admin Dose 55 MLS/HR; Start 06/23/17 at 14:00 Levetiracetam 100 ml @ 400 mls/hr Q12 IVPB Last administered on 07/02/17 09: 26; Admin Dose 400 MLS/HR; Start 06/23/17 at 21:00 Dextrose/Sodium Chloride (D5-NS) 1,000 ml @ 100 mls/hr Q10H IV Last administered on 07/02/17 16:32; Admin Dose 100 MLS/HR; Start 06/23/17 at 12:30 Eye Lubricant (Artificial Tears Oph) 2 drop QID BOTH EYES Last administered on 07/02/17 13:49; Admin Dose 2 DROP; Start 06/24/17 at 17:00 Topiramate (Topamax Sprinkle) 200 mg BID PO Last administered on 07/02/17 09: 26; Admin Dose 200 MG; Start 06/25/17 at 21:00 Lansoprazole 30 mg 30 mg DAILY@06 PO Last administered on 07/02/17 06:23; Admin Dose 30 MG; Start 06/26/17 at 08:00 Ceftriaxone Sodium 50 ml @ 100 mls/hr Q12H IVPB Last administered on 05:06; Admin Dose 100 MLS/HR; Start 06/26/17 at 17:00 Fluconazole 100 ml @ 100 mls/hr Q24H IVPB Last administered on 07/01/17 17:37 ; Admin Dose 100 MLS/HR; Start 06/26/17 at 17:00 Acyclovir 500 mg/ Sodium Chloride 100 ml @ 100 mls/hr Q8 IVPB Last administered on 07/02/17 14:00; Admin Dose 100 MLS/HR; Start 06/26/17 at 18:00 Vancomycin HCl/ Sodium Chloride (Vancocin/NS) 150 ml @ 75 mls/hr Q8H IVPB Last administered on 07/02/17t 15:55; Admin Dose 75 MLS/HR; Start 07/01/17 at 16 :00 ALEXANDER DARBY Jul 02, 2017 16:45
[2017-07-02] MEDS: FLUCONAZOLE 200 MG/NS (PMX) 100 ML IVPB SCH (17:00)
[2017-07-02] MEDS: LORAZEPAM 2 MG INJ IV PRN (18:58)
[2017-07-03] VITALS (12 sets, daily range): BP systolic 102–126; BP diastolic 56–79; PULSE 73–97; RESP 16–18
[2017-07-03] MEDS: DEXTROSE 5%-0.9% NACL 1,000 ML IV SCH ×3 (02:30→20:55)
[2017-07-03] MEDS: ACYCLOVIR 500 MG in SOD CHLORIDE 0.9% 100 ML IVPB SCH ×2 (05:27→15:29)
[2017-07-03] MEDS: VALPROATE INJ 750 MG in SOD CHLORIDE 0.9% 50 ML IVPB SCH ×2 (05:27→14:00)
[2017-07-03] MEDS: CEFTRIAXONE 2 GM/50 ML (PMX) 50 ML IVPB SCH ×2 (05:27→17:15)
[2017-07-03] MEDS: LANSOPRAZOLE 30 MG CAP PO SCH (05:28)
[2017-07-03] MEDS: LEVETIRACETAM 1500 MG (PMX) 100 ML IVPB SCH ×2 (09:24→20:47)
[2017-07-03] MEDS: CHOLECALCIFEROL 1,000 UNIT TAB PO SCH (09:24)
[2017-07-03] MEDS: METOCLOPRAMIDE 10 MG INJ IV SCH ×3 (09:24→17:22)
[2017-07-03] MEDS: ARIPIPRAZOLE 10 MG TAB PO SCH (09:24)
[2017-07-03] MEDS: TOPIRAMATE SPRINKLE 25 MG CAP PO SCH ×2 (09:24→20:47)
[2017-07-03] MEDS: NEOMYC/POLYMYX/BACIT 30 GM OINT TOP SCH ×2 (09:25→20:47)
[2017-07-03] MEDS: ARTIFICIAL TEARS 15 ML OPH BOTH EYES SCH ×4 (09:25→20:47)
[2017-07-03] MEDS ORDERED: VANCOMYCIN 1 GM in NS 250 ML IVPB SCH (12:00)
--- NOTE | 2017-07-03 13:11 | PN ---
Date/Time of Note Date/Time of Note DATE: 07/03/17 TIME: 12:57 Assessment/Plan VTE Prophylaxis VTE Prophylaxis Intervention: SCD's Lines/Catheters IV [facility]ter Type (from [facility]): PICC Line Central line still needed: Yes (For IV access) Urinary Cath still in place: Yes Reason Cath still needed: other (indicate) (Urine output monitoring, patient mostly bedrest.) Assessment/Plan Assessment/Plan 51-year-old female with: 1. Right subdural hematoma, status post subdural hematoma drainage POD#13. No seizure activity reported for the past 24 hours. Much improved encephalopathy and lethargy. Afebrile for the past 4 to 5 days now, Repeat CAT scan of the head last week stable. All cultures peripheral blood cultures, urine culture, CSF culture negative so far. Of note all these cultures were taken prior to antibiotic initiation. VDRL from CSF negative. Cryptococcal serologies negative, awaiting fungal cultures and HSV PCR. Per infectious disease, keeping patient on broad-spectrum antibiotics including acyclovir, Diflucan, vancomycin, Rocephin and recommendation to complete 14 day course, patient has 7 more days to complete antibiotic course. Hemodynamically stable. Off isolation. WBC within normal Per neurology and infectious disease, patient can be transferred to [facility]. We did have a bed last night but the mother refused. 2. Seizure disorder, refractory to medications apparently: Appreciate recommendations from neurology , continue current medication. Patient occasionally has what may be either tremors versus tics versus partial seizures. Repeat CAT scan of the head, stable. Status post vagal nerve stimulator placement at [facility] a few months ago. On treatment for suspected meningitis, bacterial, fungal versus viral, although bacterial cultures negative. Patient to complete 14 days of antibiotics, she does have 8 more days to go. Patient will have to follow-up with a tertiary neurology regarding adjustment of her vagal nerve stimulator to help with seizures refractory to medications. For now due to the fact that she is limited by her IPA to the network there contracted to, we were attempting a transfer to [facility] where continuous EEG is available. Patient was about to be transferred to [facility] on 06/26, however in the setting of fevers accepting physician have declined to take the patient until she defervescences for 24 hours at least and she is on adequate treatment for this suspected meningitis. We have recontacted them again for hopefully and had a bed available last night , however the patient's mother refused to transfer. We will attempt again today or tomorrow as long as [facility] has a bed , can also adjust her vagal nerve stimulator if possible and are willing to take the patient on multiple antibiotics. 3. Developmental delay: Close neurological monitoring given acute traumatic head injury with right subdural hematoma. Continue outpatient medications. 4. GERD: Continue Protonix 5. Chronic constipation: Continue outpatient regimen as well as patient able to take p.o. Prophylaxis: Protonix for GI prophylaxis, SCDs to lower extremity for DVT prophylaxis Disposition: Status post right subdural hematoma evacuation, drain removed 12 days ago. Repeat CAT scan stable, follow-up fungal cultures and viral PCR from CSF but per infectious disease patient to complete course of all 4 antibiotics with 7 more days to go. Hopefully can be transferred to [facility] in the next 24 hours if bed available and mother agreeable. Subjective 24 Hr Interval Summary Free Text/Dictation Patient alert, awake, she ate more this morning breakfast. Mother not at bedside currently, patient answering simple questions, she says she is okay. I asked the [employer] if she had any seizures reported overnight or this morning, the [employer] said no, the patient said she had 4 episodes of small seizures not witnessed as far as we know. This again is the reason why she needs to be in facility with 24 hour EEG monitoring so that we can actually verify if she is having seizures versus just episodes of spasms or tics. The patient had a bed at [facility] last night, the mother refused the transfer. Again at this point it is the opinion of all the treatment team including infectious disease, neurology, neurosurgery, internal medicine that the patient needs to go to a facility able to do 24 hour EEG monitoring for titration of her antiseizure medications and also for her vagal nerve stimulator adjustments. She is hemodynamically stable, she is afebrile for a few days now, her white count is within normal, she did receive all the adequate treatment required for her acute diagnoses while here at [facility] now she needs to go to a tertiary level of care facility i.e. [facility] in this case for the management of her chronic seizure disorder that needs to be better controlled. Exam/Review of Systems Vital Signs Vitals Vital Signs Date Time Temp Pulse Resp B/P Pulse Ox O2 Delivery O2 Flow Rate FiO2 07/03/17 12:10 73 07/03/17 11:29 98.6 18 110/58 100 07/03/17 04:00 Nasal Cannula Intake and Output 07/02/17 07/02/17 07/03/17 15:00 23:00 07:00 Intake Total 2517.5 ml 80 ml Output Total 1300 ml 3200 ml Balance 1217.5 ml -3120 ml Exam Constitutional: alert, frail, oriented (2 at the) Respiratory: clear to auscultation, normal air movement Cardiovascular: nl pulses, regular rate and rhythm Gastrointestinal: non-tender, soft Musculoskeletal: nl extremities to inspection, other (No edema clubbing or cyanosis) Extremities: normal pulses Neurological: CERTIFIED MEDICAL ASST II-XII intact, other (Slurred speech but seems to be baseline according to mother, unsteady but also probably close to baseline given her chronic uncontrolled seizures.) Results Result Diagram: 07/02/17 1057 07/02/17 1057 Results 24 hrs Laboratory Tests Test 07/02/17 14:50 Vancomycin Level Trough 15.7 Medications Medications Current Medications Aripiprazole (Abilify) 10 mg DAILY PO Last administered on 07/03/17 09:24; Admin Dose 10 MG; Start 06/16/17 at 09:00 Cholecalciferol (Vitamin D) 1,000 unit DAILY PO Last administered on 07/03/17 09:24; Admin Dose 1,000 UNIT; Start 06/16/17 at 09:00 Lorazepam (Ativan) 2 mg Q1H PRN IV seizure Last administered on 07/02/17 18:58 ; Admin Dose 2 MG; Start 06/15/17 at 20:30 Acetaminophen (Tylenol Tab) 650 mg Q4H PRN PO pain/fever Last administered on 23:27; Admin Dose 650 MG; Start 06/15/17 at 20:30 Morphine Sulfate (morphine) 2 mg Q2H PRN IV pain Last administered on 22:53; Admin Dose 2 MG; Start 06/15/17 at 20:30 Ondansetron HCl (Zofran Inj) 4 mg Q4H PRN IV nausea; Start 06/15/17 at 20:30 Docusate Sodium (Colace) 100 mg DAILY PRN PO CONSTIPATION Last administered on 06/23/17 08:09; Admin Dose 100 MG; Start 06/16/17 at 10:30 Lactulose (Enulose) 20 gm BID PRN PO CONSTIPATION; Start 06/16/17 at 10:30 IV Flush (NS 10 ml) 10 ml PRN PRN IV IV PROTOCOL; Start 06/16/17 at 15:30 Labetalol HCl (Labetalol) 10 mg Q10M PRN IV ELEVATED BLOOD PRESSURE; Start 06/16 at 17:00 Hydralazine HCl (Apresoline) 10 mg Q4H PRN IV ELEVATED BLOOD PRESSURE; Start at 17:00 Neomycin/ Polymyxin/ Bacitracin (Neosporin Topical Oint) 1 applic BID TOP Last administered on 07/03/17 09:25; Admin Dose 1 APPLIC; Start 06/18/17 at 21:00 Acetaminophen 650 mg 650 mg Q6H PRN [place] FEVER Last administered on 06/28/17 20: 41; Admin Dose 650 MG; Start 06/22/17 at 16:30 Valproate Sodium 750 mg/Sodium Chloride 57.5 ml @ 55 mls/hr Q8 IVPB Last administered on 07/03/17 05:27; Admin Dose 55 MLS/HR; Start 06/23/17 at 14:00 Levetiracetam 100 ml @ 400 mls/hr Q12 IVPB Last administered on 07/03/17 09: 24; Admin Dose 400 MLS/HR; Start 06/23/17 at 21:00 Dextrose/Sodium Chloride (D5-NS) 1,000 ml @ 100 mls/hr Q10H IV Last administered on 07/02/17 16:32; Admin Dose 100 MLS/HR; Start 06/23/17 at 12:30 Eye Lubricant (Artificial Tears Oph) 2 drop QID BOTH EYES Last administered on 07/03/17 09:25; Admin Dose 2 DROP; Start 06/24/17 at 17:00 Topiramate (Topamax Sprinkle) 200 mg BID PO Last administered on 07/03/17 09: 24; Admin Dose 200 MG; Start 06/25/17 at 21:00 Lansoprazole 30 mg 30 mg DAILY@06 PO Last administered on 07/03/17 05:28; Admin Dose 30 MG; Start 06/26/17 at 08:00 Ceftriaxone Sodium 50 ml @ 100 mls/hr Q12H IVPB Last administered on 05:27; Admin Dose 100 MLS/HR; Start 06/26/17 at 17:00 Fluconazole 100 ml @ 100 mls/hr Q24H IVPB Last administered on 07/02/17 17:00 ; Admin Dose 100 MLS/HR; Start 06/26/17 at 17:00 Acyclovir 500 mg/ Sodium Chloride 100 ml @ 100 mls/hr Q8 IVPB Last administered on 07/03/17 05:27; Admin Dose 100 MLS/HR; Start 06/26/17 at 18:00 Vancomycin HCl (Vancocin) 250 ml @ 125 mls/hr Q12H IVPB ; Start 07/03/17 at 12: 00 ALEXANDER DARBY Jul 03, 2017 13:11
--- NOTE | 2017-07-03 16:07 | CONS ---
Date/Time of Note Date/Time of Note DATE: 07/03/17 TIME: 16:06 Assessment/Plan Assessment/Plan Chief Complaint/Hosp Course SUBJECTIVE DATA: The patient is awake, follows commands, afebrile, looks comfortable INDWELLINGS: Right-sided PICC line placed on June 16 and Chopra catheter, vagal nerve stimulator. Abx: Vanco, Rocephin, Acyclovir, Diflucan PHYSICAL EXAMINATION: GENERAL: This is a ill-appearing middle-aged woman who is in no distress. HEENT: Head atraumatic, normocephalic. Sclerae anicteric. Buccal mucosa dry. NECK: Supple. CHEST: Chest rise symmetrical. Breath sounds diminished at the bases. HEART: S1, S2. ABDOMEN: Soft, bowel sounds present. EXTREMITIES: Without cyanosis. ASSESSMENT: 1. Acute meningitis, likely bacterial==> cx neg 2. Status post craniotomy for subdural hematoma (SDH). 3. Ongoing seizures. 4. Developmental delay. PLAN: The patient remains stable, pending cocci/HSV, continue abx for 6 more days, f/u neurology rec-s Discussed with staff Problems: Consultation Date/Type/Reason Admit Date/Time Jun 15, 2017 at 20:20 Initial Consult Date 06/25/17 Type of Consultation: ID Referring Provider: ALEXANDER DARBY Exam/Review of Systems Vital Signs Vitals Vital Signs Date Time Temp Pulse Resp B/P Pulse Ox O2 Delivery O2 Flow Rate FiO2 07/03/17 12:10 73 07/03/17 11:29 98.6 18 110/58 100 07/03/17 04:00 Nasal Cannula Intake and Output 07/02/17 07/02/17 07/03/17 15:00 23:00 07:00 Intake Total 2517.5 ml 80 ml Output Total 1300 ml 3200 ml Balance 1217.5 ml -3120 ml Results Result Diagram: 07/02/17 1057 07/02/17 1057 Medications Medications Current Medications Aripiprazole (Abilify) 10 mg DAILY PO Last administered on 07/03/17 09:24; Admin Dose 10 MG; Start 06/16/17 at 09:00 Cholecalciferol (Vitamin D) 1,000 unit DAILY PO Last administered on 07/03/17 09:24; Admin Dose 1,000 UNIT; Start 06/16/17 at 09:00 Lorazepam (Ativan) 2 mg Q1H PRN IV seizure Last administered on 07/02/17 18:58 ; Admin Dose 2 MG; Start 06/15/17 at 20:30 Acetaminophen (Tylenol Tab) 650 mg Q4H PRN PO pain/fever Last administered on 23:27; Admin Dose 650 MG; Start 06/15/17 at 20:30 Morphine Sulfate (morphine) 2 mg Q2H PRN IV pain Last administered on 22:53; Admin Dose 2 MG; Start 06/15/17 at 20:30 Ondansetron HCl (Zofran Inj) 4 mg Q4H PRN IV nausea; Start 06/15/17 at 20:30 Docusate Sodium (Colace) 100 mg DAILY PRN PO CONSTIPATION Last administered on 06/23/17 08:09; Admin Dose 100 MG; Start 06/16/17 at 10:30 Lactulose (Enulose) 20 gm BID PRN PO CONSTIPATION; Start 06/16/17 at 10:30 IV Flush (NS 10 ml) 10 ml PRN PRN IV IV PROTOCOL; Start 06/16/17 at 15:30 Labetalol HCl (Labetalol) 10 mg Q10M PRN IV ELEVATED BLOOD PRESSURE; Start 06/16 at 17:00 Hydralazine HCl (Apresoline) 10 mg Q4H PRN IV ELEVATED BLOOD PRESSURE; Start at 17:00 Neomycin/ Polymyxin/ Bacitracin (Neosporin Topical Oint) 1 applic BID TOP Last administered on 07/03/17 09:25; Admin Dose 1 APPLIC; Start 06/18/17 at 21:00 Acetaminophen 650 mg 650 mg Q6H PRN [place] FEVER Last administered on 06/28/17 20: 41; Admin Dose 650 MG; Start 06/22/17 at 16:30 Valproate Sodium 750 mg/Sodium Chloride 57.5 ml @ 55 mls/hr Q8 IVPB Last administered on 07/03/17 14:00; Admin Dose 55 MLS/HR; Start 06/23/17 at 14:00 Levetiracetam 100 ml @ 400 mls/hr Q12 IVPB Last administered on 07/03/17 09: 24; Admin Dose 400 MLS/HR; Start 06/23/17 at 21:00 Dextrose/Sodium Chloride (D5-NS) 1,000 ml @ 100 mls/hr Q10H IV Last administered on 07/03/17 13:33; Admin Dose 100 MLS/HR; Start 06/23/17 at 12:30 Eye Lubricant (Artificial Tears Oph) 2 drop QID BOTH EYES Last administered on 07/03/17 13:30; Admin Dose 2 DROP; Start 06/24/17 at 17:00 Topiramate (Topamax Sprinkle) 200 mg BID PO Last administered on 07/03/17 09: 24; Admin Dose 200 MG; Start 06/25/17 at 21:00 Lansoprazole 30 mg 30 mg DAILY@06 PO Last administered on 07/03/17 05:28; Admin Dose 30 MG; Start 06/26/17 at 08:00 Ceftriaxone Sodium 50 ml @ 100 mls/hr Q12H IVPB Last administered on 05:27; Admin Dose 100 MLS/HR; Start 06/26/17 at 17:00 Fluconazole 100 ml @ 100 mls/hr Q24H IVPB Last administered on 07/02/17 17:00 ; Admin Dose 100 MLS/HR; Start 06/26/17 at 17:00 Acyclovir 500 mg/ Sodium Chloride 100 ml @ 100 mls/hr Q8 IVPB Last administered on 07/03/17 15:29; Admin Dose 100 MLS/HR; Start 06/26/17 at 18:00 Vancomycin HCl (Vancocin) 250 ml @ 125 mls/hr Q12H IVPB Last administered on 13:29; Admin Dose 125 MLS/HR; Start 07/03/17 at 12:00 LORI PERES NP Jul 03, 2017 16:07
[2017-07-03] MEDS: FLUCONAZOLE 200 MG/NS (PMX) 100 ML IVPB SCH (17:17)
== END 2017-07-03 23:35 | disposition short-term general hospital (02) | DRG 25 ==
LOC: E/R 12:22 → ICU 20:20 → E/R 06-16 08:53 → ICU 06-16 19:01 → MS1 06-22 15:26 → TEL 06-22 20:05
PROVIDERS: ADMIT Legal Medicine; ATTEND Legal Medicine
PROC: 00C40ZZ Extirpation of Matter from Intracranial Subdural Space, Open Approach (ICD-10-PCS; principal; 2017-06-16)
PROC: 02H633Z Insertion of Infusion Device into Right Atrium, Percutaneous Approach (ICD-10-PCS; 2017-06-16)
PROC: 30233N1 Transfusion of Nonautologous Red Blood Cells into Peripheral Vein, Percutaneous Approach (ICD-10-PCS; 2017-06-23)
PROC: 009U3ZX Drainage of Spinal Canal, Percutaneous Approach, Diagnostic (ICD-10-PCS; 2017-06-26)
DX: S06.5X9A Traumatic subdural hemorrhage with loss of consciousness of unspecified duration, initial encounter (principal); G93.40 Encephalopathy, unspecified; G00.9 Bacterial meningitis, unspecified; G40.804 Other epilepsy, intractable, without status epilepticus; I95.9 Hypotension, unspecified; G93.89 Other specified disorders of brain; E87.5 Hyperkalemia; K21.9 Gastro-esophageal reflux disease without esophagitis; D64.9 Anemia, unspecified; R73.9 Hyperglycemia, unspecified; W06.XXXA Fall from bed, initial encounter; Y92.238 Other place in hospital as the place of occurrence of the external cause; F79 Unspecified intellectual disabilities; Z96.89 Presence of other specified functional implants; K59.09 Other constipation
CPT/HCPCS: 36415; 36430; 36569; 36600; 70450; 71010; 72125; 76937; 80048; 80053; 80164; 80202; 81001; 81003; 82565; 82803; 82945; 82962; 83605; 83615; 83735; 84100; 84157; 84484; 84520; 85025; 85610; 85730; 86592; 86635; 86641; 86644; 86850; 86900; 86901; 86920; 86945; 87040; 87070; 87081; 87086; 88304; 89051; 92526; 92610; 93005; 95819; 96374; 96375; 96376; 97110; 97116; 97161; 97530; C1713; C1769; J0133; J0400; J0690; J1644; J1953; J2060; J2250; J2270; J2370; J2710; J2765; J3010; J3370; J3475; J7040; J7042; J7050; P9016